=== PATIENT | male | born 1965 | race Native Hawaiian/Other Pacific Islander ===

== ENCOUNTER 2024-12-21 11:38 | Inpatient (IN) | payer MEDICAID, OTHER ==
[2024-12-21] VITALS (14 sets, daily range): BP systolic 94–177; BP diastolic 54–80; PULSE 92–128; RESP 22–39; TEMP 101.5–103.1; O2SAT 79–100
[~2024-12-21] VITALS: Ht 175.3 cm; Wt 80.8 kg
[2024-12-21] MEDS: cefTRIAXone 1GM/50ML D5W 50 ML IV ONE ×2 (11:20→12:24)
[2024-12-21] MEDS: VANCOMYCIN 1GM/250ML KIT 250 ML IV ONE ×2 (11:21→12:24)
--- NOTE | 2024-12-21 11:48 | ED.PDOC ---
Altered Mental Status HPI Comments 59 year old male brought in by EMS presents to the ED with a chief complaint of ALOC onset today (12/21/24). 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 Upon EMS arrival, patient's BS was 94, O2 sat was 70% RA was placed on 15L improved to 91%. Patient does not speak Korean, is a poor historian. PMHx DM, HTN. No other symptoms or modifying factors present at this time. Chief Complaint: ALOC Time Seen by MD: 11:38 Reviewed Notes: Nurses Notes (NKDA), Medications, Allergies Allergies: Coded Allergies: NO KNOWN ALLERGIES (Unverified , 12/21/24) Information Source: Emergency Med Personnel Mode of Arrival: EMS Severity: Moderate Timing: Hours Duration: Since onset Prehospital treatment: Oxygen Quality: Decreased Alertness, Change in Behavior Recent: None History of: Diabetes Past Medical History PAST MEDICAL HISTORY: DM, HTN Surgical History: Unknown Family History Family History: Unknown Social History Smoker: Unknown Alcohol: Unknown Drugs: Unknown Lives In: Assisted Care Constitutional: denies: chills, diaphoresis, fatigue, fever, malaise, sweats, weakness, others EENTM: denies: blurred vision, double vision, ear bleeding, ear discharge, ear drainage, ear pain, ear ringing, eye pain, eye redness, hearing loss, mouth pain, mouth swelling, nasal discharge, nose bleeding, nose congestion, nose pain, photophobia, tearing, throat pain, throat swelling, voice changes, others Respiratory: reports: shortness of breath; denies: cough, hemoptysis, orthopnea, SOB at rest, SOB with excertion, stridor, wheezing, others Cardiovascular: denies: chest pain, dizzy spells, diaphoresis, Dyspnea on exertion, edema, irregular heart beat, left arm pain, lightheadedness, palpitations, PND, syncope, others Gastrointestinal: denies: abdomen distended, abdominal pain, blood streaked bowels, constipated, diarrhea, dysphagia, difficulty swallowing, hematemesis, melena, nausea, poor appetite, poor fluid intake, rectal bleeding, rectal pain, vomiting, others Genitourinary: denies: burning, dysuria, flank pain, frequency, hematuria, incontinence, penile discharge, penile sore, pain, testicle pain, testicle swelling, urgency, others Neurological: reports: others (Altered mental status); denies: dizziness, fainting, headache, left sided numbness, left sided weakness, numbness, paresthesia, pre-existing deficit, right sided numbness, right sided weakness, seizure, speech problems, tingling, tremors, weakness Musculoskeletal: denies: back pain, gout, joint pain, joint swelling, muscle pain, muscle stiffness, neck pain, others Integumetry: denies: bruises, change in color, change in hair/nails, dryness, laceration, lesions, lumps, rash, wounds, others Allergic/Immunocompromised: denies: Difficulty Healing, Frequent Infections, Hives, Itching, others Hematologic/Lymphatic: denies: anemia, blood clots, easy bleeding, easy bruising, swollen glands, others Endocrine: denies: excessive hunger, excessive sweating, excessive thirst, excessive urination, flushing, intolerance to cold, intolerance to heat, unexplained weight gain, unexplained weight loss, others Psychiatric: denies: anxiety, bipolar disorder, depression, hopeless, panic disorder, schizophrenia, sleepless, suicidal, others Physical Exam General Appearance: Moderate Distress, Severe Distress HEENT: Pale [place] (L), Pale [place] (R), Pharynx Normal, TMs Normal Neck: Full Range of Motion, Non-Tender, Normal, Normal Inspection Respiratory: Accessory Muscle Use, Chest Non-Tender, Decreased Breath Sounds, Respiratory Distress Cardiovascular: No Edema, No JVD, No Murmur, No Gallop, Tachycardia Breast Exam: Deferred Gastrointestinal: No Organomegaly, Non Tender, No Pulsatile Mass, Normal Bowel Sounds, Soft Genitalia: Deferred Pelvic: Deferred Rectal: Deferred Extremities: No calf tenderness, Normal capillary refill, Normal inspection, Normal range of motion, Non-tender, No pedal edema Musculoskeletal : Apperance: Normal 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 Was a procedure done?: Yes Sedation Sedation?: No Intubation Indication: Respiratory Insufficiency Prep: Preoxygenation Pretreated with: Sedation (Etomidate 20 mg IV push) Medicated with: Succinylcholine (100 mg IV push) Intubation Approach: Orotracheal (8.0) Intubation size: cm (8.0) Informed consent obtained: No Risks/benefits/alt described: No Differential Diagnosis (ALOC) Differential Diagnosis: Dehydration, Encephalopathy, Sepsis, Other (Pneumonia, respiratory failure) X-Ray, Labs, Meds, VS Vital Signs Date Time Temp Pulse Resp B/P (MAP) Pulse Ox O2 Delivery O2 Flow Rate FiO2 12/21/24 17:15 102.4 127 38 135/70 102.4 12/21/24 17:00 102.6 117 28 142/61 (88) 91 102.6 12/21/24 16:55 102.7 117 22 151/64 102.7 12/21/24 16:55 102.7 117 22 151/64 102.7 12/21/24 16:48 102.7 118 28 140/66 102.7 12/21/24 16:42 102.7 123 32 147/70 102.7 12/21/24 16:05 130 12/21/24 16:00 102.9 121 29 153/73 (99) 93 102.9 12/21/24 15:41 118 132/63 97 Nasal BiPAP Mask 100 12/21/24 15:20 103.1 120 32 132/63 103.1 12/21/24 15:11 Bi-Pap+ 100 100 12/21/24 15:10 103.1 128 33 177/80 95 100 103.1 12/21/24 15:00 103.1 128 39 177/80 103.1 12/21/24 15:00 103.1 121 33 177/80 (112) 96 103.1 12/21/24 14:50 118 12/21/24 14:20 137 157/68 Nasal BiPAP Mask 100 12/21/24 14:03 103.1 12/21/24 14:00 102.9 123 34 157/68 (97) 94 102.9 12/21/24 13:03 102.1 12/21/24 12:53 102.8 112 35 133/69 (90) 94 102.8 12/21/24 12:00 119 12/21/24 11:57 118 12/21/24 11:49 119 12/21/24 11:41 101.4 123 24 145/77 (99) 91 101.4 Lab Test 12/21/24 15:36 12/21/24 15:33 12/21/24 13:58 12/21/24 13:51 Range/Units Troponin I High Sensitivity 907 *H </=54 ng/L Blood Gas Specimen Type Arterial Arterial Blood Gas Sample Site Left radial Left radial Blood Gas Patient Temperature 37.0 37.0 Arterial Blood Date Drawn [id number] Arterial Blood pH 7.294 L 7.328 L 7.350-7.450 Arterial Blood Partial Pressure CO2 32.0 L 27.5 L 35.0-48.0 mmHg Arterial Blood Partial Pressure O2 81.1 L 63.1 L 83.0-108.0 mmHg Arterial Blood HCO3 15.2 L 14.1 L 21.0-28.0 mmol/L Arterial Blood Oxygen Saturation 92.7 L 85.8 L 94.0-98.0 % Arterial Blood Base Excess -10.4 L -10.8 L -2.0-3.0 mmol/L Arterial Blood Oxyhemoglobin 91.2 L 84.6 L 94.0-98.0 % Arterial Blood Carboxyhemoglobin 0.8 0.4 L 0.5-1.5 % Arterial Blood Methemoglobin 0.8 1.0 0.0-1.5 % Dharmesh Test Yes Yes Blood Gas Total Hemoglobin 6.90 *L 6.50 *L 13.5-17.5 g/dL Blood Gas Set Respiration Rate 12.0 Blood Gas Modality Mask - bipap Mask - nrb Blood Gas Spontaneous Rate 30 FiO2 % 100.0 100.0 Blood Gas EPAP 8 Blood Gas IPAP 14 Blood Gas Critical Value Read Back yes yes Blood Gas Notified Whom dr.l.pascal lopez Blood Gas Notified Time [id number] Blood Gas Notified By traffic circuit engineer brit traffic circuit engineer brit Blood Gas Liter Flow 15.00 Lactic Acid Level 6.3 *H 0.4-2.0 mmol/L Test 12/21/24 13:05 3/16/25 12:12 12/21/24 12:07 12/21/24 11:58 Range/Units Troponin I High Sensitivity 630 *H 448 *H </=54 ng/L Influenza Type A Antigen Negative Negative Influenza Type B Antigen Negative Negative SARS-CoV-2 Antigen (Rapid) Negative NEGATIVE Urine Color Light-yellow Yellow Urine Clarity Clear Clear Urine pH 5.5 5.0-9.0 Urine Specific [place] 1.016 1.001-1.035 Urine Protein 2+ H Negative Urine Ketones Negative Negative Urine Blood 1+ H Negative /uL Urine Nitrite Negative Negative Urine Bilirubin Negative Negative Urine Urobilinogen Normal Negative mg/dL Urine Leukocyte Esterase Negative Negative /uL Urine RBC 4 0 - 3 /hpf Urine Microscopic WBC 2 0-3 /HPF Urine Squamous Epithelial Cells None seen <5 /hpf Urine Bacteria Few H None Seen /hpf Urine Creatinine 125.39 H 30.0-125.0 mg/dL Urine Sodium < 10 L 40-220 mmol/L Urine Glucose Normal Normal mg/dL White Blood Count 1.8 *L 4.4-10.8 10^3/uL Red Blood Count 2.01 L 4.5-5.90 10^6/uL Hemoglobin 6.3 *L 13.5-17.5 g/dL Hematocrit 19.1 L 41.0-53.0 % Mean Corpuscular Volume 94.7 80.0-100.0 fL Mean Corpuscular Hemoglobin 31.4 28.0-32.0 pg Mean Corpuscular Hemoglobin Concent 33.2 32.0-36.0 g/dL Red Cell Distribution Width 25.6 H 11.8-14.3 % Platelet Count 115 L 140-450 10^3/uL Mean Platelet Volume 8.1 6.9-10.8 fL Neutrophils (%) (Auto) 37.0-80.0 % Lymphocytes (%) (Auto) 10.0-50.0 % Monocytes (%) (Auto) 0.0-12.0 % Basophils (%) (Auto) 0.0-2.0 % Neutrophils # (Auto) 1.6-8.6 10 ^3/uL Lymphocytes # (Auto) 0.4-5.4 10 ^3/uL Monocytes # (Auto) 0-1.3 10 ^3/uL Differential Total Cells Counted 100.0 100 Neutrophils % (Manual) 58 37.0-80.0 Band Neutrophils % (Manual) 12 Lymphocytes % (Manual) 23 10.0-50.0 Monocytes % (Manual) 7 0-12 Eosinophils % (Manual) 0 0-7 Basophils % (Manual) 0 0.0-2.0 Metamyelocytes % (manual) 0 Myelocytes % (Manual) 0 Promyelocytes % (Manual) 0 Blast Cells % (Manual) 0 Reactive Lymphocytes 0 Platelet Estimate Decreased Prothrombin Time 17.4 H 9.3-11.8 sec Prothrombin Time INR 1.73 H 0.9-1.15 Activated Partial Thromboplast Time 34.6 H 24.5-34.5 SEC Sodium Level 134 L 136-145 mmol/L Potassium Level 3.8 3.5-5.1 mmol/L Chloride Level 98 98-107 mmol/L Carbon Dioxide Level 17 L 20-31 mmol/L Anion Gap 19 H 5-15 Blood Urea Nitrogen 45 H 9-23 mg/dL Creatinine 2.73 H 0.700-1.30 mg/dL Glomerular Filtration Rate Calc 26 >90 mL/min BUN/Creatinine Ratio 16.5 10.0-20.0 Serum Glucose 92 74-106 mg/dL Lactic Acid Level 4.9 *H 0.4-2.0 mmol/L Calcium Level 11.8 H 8.7-10.4 mg/dL Plasma/Serum Blood Alcohol < 3.0 <10 mg/dL Current Medications Medications (Trade) Dose Ordered Sig/Teddy Route Start Time Stop Time Status Last Admin Sodium Chloride 1,000 ml @ 150 mls/hr Q6H40M ONCE IV 12/21/24 11:45 12/21/24 18:24 DC 12/21/24 12:24 Vancomycin HCl 250 ml @ 250 mls/hr ONCE ONCE IV 12/21/24 11:45 12/21/24 12:44 DC 12/21/24 12:24 Ceftriaxone Sodium 50 ml @ 100 mls/hr ONCE ONCE IV 12/21/24 11:45 12/21/24 12:14 DC 12/21/24 12:24 Sodium Chloride 2,100 ml @ 2,100 mls/hr ONCE ONCE IV 12/21/24 12:45 12/21/24 13:44 DC 12/21/24 12:49 Acetaminophen (Tylenol Suppository) 650 mg ONCE ONCE HI 12/21/24 13:00 12/21/24 13:01 DC 12/21/24 13:03 Lorazepam (Ativan Inj) 0.5 mg ONCE ONCE IV 12/21/24 14:15 12/21/24 14:16 DC 12/21/24 14:21 Lorazepam (Ativan Inj) 0.5 mg ONCE ONCE IV 12/21/24 16:15 12/21/24 16:16 DC 12/21/24 16:06 Sodium Chloride 1,000 ml @ 1,000 mls/hr Q1H ONCE IV 12/21/24 17:00 12/21/24 17:59 DC 12/21/24 17:09 . PROCEDURE(s): HWOCT - HEAD WITHOUT CONTRAST IMPRESSION: 1. No CT evidence of acute intracranial abnormality. 2. Mild motion artifact and beam hardening artifact limits evaluation for subtle findings EDURE(s): CXRP - CHEST PORTABLE IMPRESSION: 1. Patchy ttlu-drqixwj-hniq-right consolidation concerning for multifocal pneumonia. At this time, the patient was tachycardic as well as somewhat altered. We are concerned about sepsis at this time The patient was given normal saline per 30 per kg bolus per sepsis protocol The patient was then started on vancomycin and Rocephin after blood cultures were drawn. The patient's 1st lactic acid level came back at 4.9. The patient's BUN is 45 and the creatinine is 2.73 The patient was leukopenic with a white blood cell count of 1.8 The patient's shows severe anemia with a hemoglobin of 6.3 and hematocrit of 19.1 We typed and screen the patient and we will be transfusing the patient with 2 units of packed red blood cells. The patient was respiratory status seemed to be deteriorating somewhat so we did an ABG for baseline study it showed pH of 7.33/pCO2 of 27.5/PO2 of 63.1 It was decided that the patient would be then placed on a BiPAP. The patient was then given Ativan 0.5 mg IV push We continue to keep the patient on BiPAP and will monitor the respiratory status. We have discussed with the respiratory department's that if the patient declines further we may potentially intubate. The patient was also given acetaminophen 650 mg per rectum for a temperature of 103.1 The urine test is negative for significant infection at this time The patient's CO2 level is 17 The anion gap is 19 The patient will be admitted to the ICU. At this time the patient was intubated The chest x-ray does show significant failure The patient was given Lasix 40 mg IV push We will continue to monitor the patient's status but the patient was now being admitted to the ICU Images Reviewed?: Images reviewed and evaluated by me Time of 1ST Reevaluation: 12:08 Reevaluation 1ST: Unchanged Time of 2ND Reevaluation: 20:39 Reevaluation 2ND: Improved Patient Education/Counseling: Pt Unresponsive (The patient was altered) Family Education/Counseling: No Family Present Departure 1 Departure Time of Disposition: 14:48 Impression: Primary Impression: Sepsis Qualified Codes: A41.9 - Sepsis, unspecified organism; R65.20 - Severe sepsis without septic shock; N17.1 - Acute kidney failure with acute cortical necrosis Additional Impressions: Metabolic encephalopathy Dehydration Increased anion gap metabolic acidosis Disposition: ADMITTED INPATIENT Admit to: ICU Condition: Critical Critical Care Note Critical Care Time?: Yes (1 hr-critical care time only) Stability Stability form required: Yes Unstable for transfer: ICU, CCU, PCU, ESTRELLA (Intensive VS monitoring), May require CPR (possible rapid decline), ED Physician Assesment (Clinical assesment) Heart Score Heart Score: Heart Score Response (Comments) Value History Moderate Suspicious 1 EKG Repolarization Disturb 1 Age 45-64 1 Risk Factors >3 or Hx ASHD 2 Troponin 1-2 x's Normal limit 1 Total 6 I personally scribed for GUZMAN SOUZA MD ([email or web address]) on 12/21/24 at 11:48. Electronically submitted by Padmini Lockhart ([email or web address]). I personally scribed for GUZMAN SOUZA MD ([email or web address]) on 12/21/24 at 11:58. Electronically submitted by Padmini Lockhart ([email or web address]). I personally scribed for GUZMAN SOUZA MD ([email or web address]) on 12/21/24 at 12:53. Electronically submitted by Padmini Lockhart ([email or web address]). I personally scribed for GUZMAN SOUZA MD ([email or web address]) on 12/21/24 at 13:52. Electronically submitted by Padmini Lockhart ([email or web address]). GUZMAN SOUZA MD Dec 21, 2024 11:48
[2024-12-21 12:15] LABS: Hematocrit 19.1 % (41.0-53.0); Mean Corpuscular Hemoglobin 31.4 pg (28.0-32.0); Mean Corpuscular Hgb Conc. 33.2 g/dL (32.0-36.0); Mean Corpuscular Volume 94.7 fL (80.0-100.0); Platelet Count (auto) 115 10^3/uL (140-450); Red Blood Cells 2.01 10^6/uL (4.5-5.90)
[2024-12-21 12:22] LABS: Carbon Dioxide 17 mmol/L (20-31)
[2024-12-21 12:24] LABS: Potassium 3.8 mmol/L (3.5-5.1)
[2024-12-21 12:24] LABS: Urine Bacteria FEW /hpf (None Seen); Urine Blood 1+ /uL (Negative); Urine Clarity Clear (Clear); Urine Color Light-Yellow (Yellow); Urine Protein, UAD 2+ (Negative); Urine Specific Gravity 1.016 (1.001-1.035); Urine Squamous Epithelial Cell None Seen /hpf (<5); Urine Urobilinogen Normal (Negative); Urine WBC 2 /HPF (0-3); Urine pH 5.5 (5.0-9.0)
[2024-12-21] MEDS: SODIUM CHLORIDE 0.9% 1,000 ML IV ONE ×2 (12:24→17:09)
[2024-12-21 12:25] LABS: Anion Gap 19 (5-15); Red Cell Distribution Width 25.6 % (11.8-14.3)
[2024-12-21 12:26] LABS: Calcium 11.8 mg/dL (8.7-10.4); Chloride 98 mmol/L (98-107); Sodium 134 mmol/L (136-145)
[2024-12-21 12:27] LABS: Glucose 92 mg/dL (74-106)
[2024-12-21 12:28] LABS: BUN/Creatinine Ratio 16.5 (10.0-20.0); Hemoglobin 6.3 g/dL (13.5-17.5); INR 1.73 (0.9-1.15); Partial Thromboplastin Time 34.6 SEC (24.5-34.5); Prothrombin Time 17.4 sec (9.3-11.8); White Blood Cell 1.8 10^3/uL (4.4-10.8)
[2024-12-21 12:29] LABS: Basophils % (manual) 0 (0.0-2.0); Blast Cells 0; Eosinophils % (manual) 0 (0-7); Metamyelocytes % 0; Myelocytes % 0; Promyelocytes % 0; Reactive Lymphocytes 0
[2024-12-21 12:30] LABS: Blood Urea Nitrogen 45 mg/dL (9-23)
[2024-12-21 12:31] LABS: Blood Alcohol < 3.0 mg/dL (<10); Lactic Acid w/Reflex 4.9 mmol/L (0.4-2.0)
[2024-12-21 12:34] LABS: COVID19 ANTIGEN SOFIA FIA NEGATIVE (NEGATIVE); Rapid Influenza A Negative (Negative); Rapid Influenza B Negative (Negative)
--- NOTE | 2024-12-21 12:41 | DVH ---
CLINICAL INFORMATION: Acute loss of consciousness. TECHNIQUE: Axial imaging was obtained through the brain without contrast. Coronal and sagittal reform atted images were obtained, reviewed, and stored. Images were reviewed in brain and bone windows. Al l CT scans at this medical facility are performed using dose modulation techniques as appropriate to a performed exam including the following: Automated exposure control was utilized; adjustment of the MA and/or KV according to patient size; and use of iterative reconstruction technique. CTDIvol = 58.6 4 mGy DLP = 940.0 mGy-cm COMPARISON: None FINDINGS: There is no acute intracranial hemorrhage. No mass effect or midline shift. The ventricles and sulci are within normal limits in size for age. Basal cisterns are patent. The calvarium is unre markable. Moderate mucosal thickening of the visualized portions of the paranasal sinuses. Partially visualized retention cyst versus polyp in the left maxillary sinus mastoid air cells are clear. IMPRESSION: 1. No CT evidence of acute intracranial abnormality. 2. Mild motion artifact and beam hardening artifact limits evaluation for subtle findings
[2024-12-21] MEDS: SODIUM CHLORIDE 0.9% 2,100 ML IV ONE (12:49)
[2024-12-21] MEDS: ACETAMINOPHEN IV 1000 MG/100ML (10MG/ML) IV ONE ×2 (12:55)
--- NOTE | 2024-12-21 13:01 | DVH ---
CHEST RADIOGRAPH Indication: aloc Technique: Single frontal view of the chest was obtained COMPARISON: None FINDINGS: Lines and Tubes: None Lungs: Patchy left worse than right consolidation. Pleura: No effusion. No pneumothorax. Cardiomediastinal contours: Unremarkable Bones: Unremarkable IMPRESSION: 1. Patchy cyrq-xpvyldx-ajxw-right consolidation concerning for multifocal pneumonia.
[2024-12-21] MEDS: ACETAMINOPHEN 650 MG RECT SUPP PR ONE (13:03)
[2024-12-21] MEDS: LORazepam 2MG/ML-1ML VIAL ONE (13:18)
[2024-12-21 13:22] LABS: Band Neutrophils % (manual) 12; Lymphocytes % (manual) 23 (10.0-50.0); Monocytes % (manual) 7 (0-12); Platelet Estimate Decreased
[2024-12-21 14:04] LABS: Base Excess -10.8 mmol/L (-2.0-3.0)
[2024-12-21] MEDS: LORazepam 2MG/ML-1ML VIAL IV ONE ×2 (14:21→16:06)
[2024-12-21 15:38] LABS: Base Excess -10.4 mmol/L (-2.0-3.0)
--- NOTE | 2024-12-21 17:13 | DVHHP2 ---
Admitting Diagnosis: Altered mental status History of Present Illness 59 year old male brought in by EMS presents to the ED with a chief complaint of ALOC onset today (12/21/24). 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 Upon EMS arrival, patient's BS was 94, O2 sat was 70% RA was placed on 15L improved to 91%. Patient does not speak [place]ian, is a poor historian. PMHx DM, HTN. No other symptoms or modifying factors present at this time. PAST MEDICAL HISTORY: DM, HTN Surgical History: Unknown Family History Family History: Unknown Social History Smoker: Unknown Alcohol: Unknown Drugs: Unknown Lives In: Assisted Care Allergies: Coded Allergies: NO KNOWN ALLERGIES (Unverified , 12/21/24) Current Medications Current Medications Medications (Trade) Dose Ordered Sig/Teddy Route PRN Reason Start Time Stop Time Status Last Admin Sodium Chloride (Saline Lock Ns) 10 ml Q8HR IV 12/21/24 22:00 UNV Docusate Sodium (Colace Capsule) 100 mg BIDPRN PRN PO FOR CONSTIPATION 12/21/24 17:30 UNV Acetaminophen (Tylenol Tablet) 650 mg Q6HP PRN PO PAIN SCALE 1-3 OR TEMP>100.4 12/21/24 17:30 UNV Acetaminophen/ Hydrocodone Bitart ([place] 5/325MG Tab) 1 tab Q4HP PRN PO MODERATE PAIN (4-6 PAIN SCALE) 12/21/24 17:30 UNV Hydromorphone HCl (Dilaudid Injection) 0.5 mg Q4HP PRN IV SEVERE PAIN (7-10 PAIN SCALE) 12/21/24 17:30 UNV Ondansetron HCl (Zofran) 4 mg Q4HP PRN IV NAUSEA / VOMITING 12/21/24 17:30 UNV Pantoprazole Sodium (Protonix) 40 mg BID IV 12/21/24 22:00 UNV Vital Signs Vital Signs Date Time Temp Pulse Resp B/P (MAP) Pulse Ox O2 Delivery O2 Flow Rate FiO2 12/21/24 17:15 102.4 127 38 135/70 102.4 12/21/24 17:00 91 12/21/24 15:41 Nasal BiPAP Mask 100 Physical Exam Generally 59 years old male, on BiPAP, resting comfortably. No apparent distress HEENT-atraumatic normocephalic Heart-sinus tachycardic Lungs-coarse breath sounds throughout the lung Abdomen soft nontender nondistended Musculoskeletal-pedal edema, no cyanosis Neuro-somnolent, nonresponsive to verbal or touch, Results Labs Test 12/21/24 15:36 12/21/24 15:33 12/21/24 13:58 12/21/24 13:51 Range/Units Troponin I High Sensitivity 907 *H </=54 ng/L Blood Gas Specimen Type Arterial Blood Gas Sample Site Left radial Blood Gas Patient Temperature 37.0 Arterial Blood Date Drawn [id number] Arterial Blood pH 7.294 L 7.350-7.450 Arterial Blood Partial Pressure CO2 32.0 L 35.0-48.0 mmHg Arterial Blood Partial Pressure O2 81.1 L 83.0-108.0 mmHg Arterial Blood HCO3 15.2 L 21.0-28.0 mmol/L Arterial Blood Oxygen Saturation 92.7 L 94.0-98.0 % Arterial Blood Base Excess -10.4 L -2.0-3.0 mmol/L Arterial Blood Oxyhemoglobin 91.2 L 94.0-98.0 % Arterial Blood Carboxyhemoglobin 0.8 0.5-1.5 % Arterial Blood Methemoglobin 0.8 0.0-1.5 % Dharmesh Test Yes Blood Gas Total Hemoglobin 6.90 *L 13.5-17.5 g/dL Blood Gas Set Respiration Rate 12.0 Blood Gas Modality Mask - bipap Blood Gas Spontaneous Rate 30 FiO2 % 100.0 Blood Gas EPAP 8 Blood Gas IPAP 14 Blood Gas Critical Value Read Back yes Blood Gas Notified Whom Blood Gas Notified Time [id number] Blood Gas Notified By restorative art embalmer brit Blood Gas Liter Flow 15.00 Lactic Acid Level 6.3 *H 0.4-2.0 mmol/L Test 12/21/24 12:12 12/21/24 12:07 12/21/24 11:58 Range/Units Influenza Type A Antigen Negative Negative Influenza Type B Antigen Negative Negative SARS-CoV-2 Antigen (Rapid) Negative NEGATIVE Urine Color Light-yellow Yellow Urine Clarity Clear Clear Urine pH 5.5 5.0-9.0 Urine Specific [place] 1.016 1.001-1.035 Urine Protein 2+ H Negative Urine Ketones Negative Negative Urine Blood 1+ H Negative /uL Urine Nitrite Negative Negative Urine Bilirubin Negative Negative Urine Urobilinogen Normal Negative mg/dL Urine Leukocyte Esterase Negative Negative /uL Urine RBC 4 0 - 3 /hpf Urine Microscopic WBC 2 0-3 /HPF Urine Squamous Epithelial Cells None seen <5 /hpf Urine Bacteria Few H None Seen /hpf Urine Glucose Normal Normal mg/dL White Blood Count 1.8 *L 4.4-10.8 10^3/uL Red Blood Count 2.01 L 4.5-5.90 10^6/uL Hemoglobin 6.3 *L 13.5-17.5 g/dL Hematocrit 19.1 L 41.0-53.0 % Mean Corpuscular Volume 94.7 80.0-100.0 fL Mean Corpuscular Hemoglobin 31.4 28.0-32.0 pg Mean Corpuscular Hemoglobin Concent 33.2 32.0-36.0 g/dL Red Cell Distribution Width 25.6 H 11.8-14.3 % Platelet Count 115 L 140-450 10^3/uL Mean Platelet Volume 8.1 6.9-10.8 fL Neutrophils (%) (Auto) 37.0-80.0 % Lymphocytes (%) (Auto) 10.0-50.0 % Monocytes (%) (Auto) 0.0-12.0 % Basophils (%) (Auto) 0.0-2.0 % Neutrophils # (Auto) 1.6-8.6 10 ^3/uL Lymphocytes # (Auto) 0.4-5.4 10 ^3/uL Monocytes # (Auto) 0-1.3 10 ^3/uL Differential Total Cells Counted 100.0 100 Neutrophils % (Manual) 58 37.0-80.0 Band Neutrophils % (Manual) 12 Lymphocytes % (Manual) 23 10.0-50.0 Monocytes % (Manual) 7 0-12 Eosinophils % (Manual) 0 0-7 Basophils % (Manual) 0 0.0-2.0 Metamyelocytes % (manual) 0 Myelocytes % (Manual) 0 Promyelocytes % (Manual) 0 Blast Cells % (Manual) 0 Reactive Lymphocytes 0 Platelet Estimate Decreased Prothrombin Time 17.4 H 9.3-11.8 sec Prothrombin Time INR 1.73 H 0.9-1.15 Activated Partial Thromboplast Time 34.6 H 24.5-34.5 SEC Sodium Level 134 L 136-145 mmol/L Potassium Level 3.8 3.5-5.1 mmol/L Chloride Level 98 98-107 mmol/L Carbon Dioxide Level 17 L 20-31 mmol/L Anion Gap 19 H 5-15 Blood Urea Nitrogen 45 H 9-23 mg/dL Creatinine 2.73 H 0.700-1.30 mg/dL Glomerular Filtration Rate Calc 26 >90 mL/min BUN/Creatinine Ratio 16.5 10.0-20.0 Serum Glucose 92 74-106 mg/dL Calcium Level 11.8 H 8.7-10.4 mg/dL Plasma/Serum Blood Alcohol < 3.0 <10 mg/dL Primary Diagnosis Acute hypoxic respiratory failure likely due to multifocal pneumonia Severe sepsis due to multifocal pneumonia Lactic acidosis RYAN Severe anemia required blood transfusion Hypercalcemia Plan Altered mental status in ED. CT head negative Chest x-ray shows multifocal pneumonia Check CT chest to assess for severity of the pneumonia Vanc and Zosyn for broad-spectrum antibiotics Blood culture, sputum culture. Adjust antibiotic according to ID and sensitivity IV fluids for resuscitation ABG shows improvement on BiPAP but patient has become altered, and saturation was 87 on non-rebreather mask Patient will be intubated due to GCS less than 8 and hypoxic on non-rebreather mask Ventilator per Dr. Lozano Daily SBT Fentanyl for pain Lactic acid is elevated. Trend q.6. If elevated, fluid resuscitate until lactic acid normalize Elevated troponin. Check echo of the heart Cardiology consult in ED. Trend troponin until plateau. Patient is not candidate for heparin drip in view of severe anemia requiring transfusion Hemoglobin less than seven ED. Patient is being transfused Transfusion hemoglobin goal greater than seven Check occult blood to rule out GI bleed Insert NGT during intubation Dietitian consult for tube diet Full code SCD for DVT prophylaxis PPI for GI prophylaxis NPO Plan discussed with: Patient Problems List: (1) Metabolic encephalopathy (2) Multifocal pneumonia (3) RYAN (acute kidney injury) (4) Sepsis Status: Acute (5) Increased anion gap metabolic acidosis Status: Acute (6) Dehydration Status: Acute (7) Severe sepsis Date of Service: Dec 21, 2024 Billing Provider: PHILLIP JC MD Common Visit Codes: [id number] CARE 30-74 MIN, [id number] CARE-EACH +30MIN PHILLIP JC MD Dec 21, 2024 17:13
[2024-12-21] MEDS: FUROSEMIDE 40 MG/4 ML VIAL ONE (17:15)
[2024-12-21] MEDS: SODIUM BICARB 8.4% 50Meq/50ml SYR INJ ONE (17:16)
[2024-12-21] MEDS ORDERED: HYDROmorphone HCL 2 MG/ML VL/or syr IV PRN (17:30)
[2024-12-21] MEDS ORDERED: HYDROcodone-ACET 5/325MG TAB PO PRN (17:30)
[2024-12-21] MEDS ORDERED: ONDANSETRON HCL 4 MG/2 ML VIAL IV PRN (17:30)
[2024-12-21] MEDS ORDERED: DOCUSATE SOD 100 MG CAP PO PRN (17:30)
[2024-12-21] MEDS: SUCCINYLCHOLINE CHLORIDE 20 MG/ML 10ML VIAL IV ONE (17:38)
[2024-12-21] MEDS: ETOMIDATE (2MG/ML) 20ML VIAL IV ONE (17:38)
[2024-12-21] MEDS ORDERED: hydrALAZINE HCL 20 MG/ML VL IV PRN (17:45)
[2024-12-21] MEDS: InsuLIN REG 1unit/0.01ml Soln (100units/ml) SC SCH (18:00)
[2024-12-21 18:13] LABS: Base Excess -14.2 mmol/L (-2.0-3.0)
[2024-12-21] MEDS: FUROSEMIDE 40 MG/4 ML VIAL IV SCH (18:13)
[2024-12-21] MEDS: ACCU-CHEK COMFORT CURVE STRIP VI SCH (18:15)
--- NOTE | 2024-12-21 18:15 | DVH ---
CHEST RADIOGRAPH Indication: POST INTUBATION Technique: Single frontal view of the chest was obtained Comparison: XY CHEST PORTABLE on DOS: 12/21/24 FINDINGS: Lines and Tubes: Enteric tube noted the diaphragm tip not visualized. Endotracheal tube proximally 2- 3 cm above the karina. Lungs: Bilateral perihilar infiltrates and lower lobe airspace disease and possible pleural effusions Pleura: No effusion. No pneumothorax. Cardiomediastinal contours: Unremarkable Bones: No acute osseous abnormality. IMPRESSION: 1. Endotracheal tube 2-3 cm above the karina 2. Enteric tube noted to the left diaphragm not visualized distally. HS:Y
[2024-12-21] MEDS: SODIUM BICARB 8.4% 50Meq/50ml SYR Vial IV ONE (18:16)
[2024-12-21] MEDS: PIPERACILLIN-TAZOB 3.375GM 100 ML IV SCH (18:24)
[2024-12-21] MEDS: MIDAZOLAM DRIP 50 mg/50mL 50 ML IV SCH (18:25)
[2024-12-21] MEDS ORDERED: VANCOMYCIN PER PHARMACY 0 MG IV SCH (18:30)
[2024-12-21 18:41] LABS: Creatinine, Urine 125.39 mg/dL (30.0-125.0); Sodium Urine < 10 mmol/L (40-220)
--- NOTE | 2024-12-21 18:48 | DVH ---
EXAM: XY CHEST XRAY 1 VIEW TECHNIQUE: Single frontal chest radiograph CLINICAL HISTORY: ET AND NG TUBE PLACMENT COMPARISON: XY CHEST PORTABLE on DOS: 12/21/24, XY CHEST PORTABLE on DOS: 12/21/24 Findings/Impression: Frontal chest radiograph demonstrates no acute osseous or superficial soft tissue abnormalities. Endotracheal tube terminates 5.1 cm from the karina. The enteric tube is visualized overlying the pl ane of the stomach. The trachea is midline. Mild cardiomegaly with pulmonary vascular congestion. Small left pleural effusion with compressive atelectasis. A superimposed infectious process is not ex cluded. No pneumothorax.
--- NOTE | 2024-12-21 19:23 | DVH ---
INDICATION: thelma, elevated lft TECHNIQUE: Multiple real-time sonographic images of the abdomen were obtained. COMPARISON: None FINDINGS: The liver is homogenous in echogenicity. The liver measures 15.1 cm. No intrahepatic bilia ry ductal dilatation is noted. Bilateral pleural effusions. The gallbladder wall measures 0.53 cm and is unremarkable. No gallstones or sludge is seen. The co mmon duct not visible. No pericholecystic fluid is noted. The right kidney measures 11 cm. No hydronephrosis. The left kidney measures 11.3 cm. No hydronephr osis. The spleen measures 11.6 cm, within normal limits. The echogenicity is within normal limits. The pancreas is not well visualized due to obscuration from bowel gas. IV seen unremarkable. Aorta not visible. IMPRESSION: 1. Right kidney measures 11 cm; left kidney measures 11.3 cm. The renal cortex bilaterally appears ec hogenic. 2. Liver measures 15.1 cm. 3. Appear to be bilateral pleural effusions. 4. Gallbladder wall measures 5.3 mm and is thickened. 5. Common bile duct is not visible. 6. Inferior vena cava is unremarkable 7. Abdominal aorta is not visible. HS:Y
[2024-12-21 19:57] LABS: Base Excess -12.6 mmol/L (-2.0-3.0)
--- NOTE | 2024-12-21 20:47 | DVH ---
Procedure: CT CHEST WITHOUT CONTRAST Reason for study/Clinical History: assess for multifocal pneumonia Comparison Study: None available at time of dictation. Exam Date: 12/21/2024 08:03 PM TECHNIQUE: Multidetector CT of the chest was performed from the lung apices to the upper abdomen with out the use of intravenous contract. Axial, coronal and sagittal multiplanar reformats were performed . Radiation Dose Information: CT Dose: CTDI volume is 24.08 mGy. Dose-length product is 967.0 mGy*cm The dose indicators for CT are the volume Computed Tomography (CT) Dose Index (CTDIvol) and the Dose Length Product (DLP), and are measured in units of mGy and mGy-cm, respectively. These indicators are not patient dose, but values generated from the CT scanner acquisition factors. The report includes radiation exposure data for exposures received during this examination. FINDINGS: Lower neck: Endotracheal tube and enteric tube in place Lungs: Patchy infiltrates are noted in the upper lobes bilaterally and lower lobes. Heart/Vascular Structures: Normal heart size. No pericardial effusion. Lymph Nodes: No adenopathy Pleura: No pleural effusion or significant pneumothorax. Musculoskeletal: No acute osseous abnormality. Soft tissues: Normal. Upper abdomen: Limited portions of the upper abdomen are unremarkable. IMPRESSION: 1. Patchy infiltrates in the upper lung rubio bilaterally, lingula on the left, and lower lung fiel ds, bilaterally. Radiation optimization: All CT scans at this facility use at least one of these dose optimization mathew hniques: automated exposure control mA and/or kV adjustment per patient size (includes targeted exam s where dose is matched to clinical indication) or iterative reconstruction. HS:Y
[2024-12-21 21:34] LABS: Lactic Acid w/Reflex 6.2 mmol/L (0.4-2.0)
[2024-12-21] MEDS: SODIUM CHLOR 0.9% PF (SALINE LOCK) 10ML VIAL/SYR IV SCH (22:17)
[2024-12-21] MEDS: PANTOPRAZOLE 40 MG/10 ML VIAL INJ IV SCH (22:33)
--- NOTE | 2024-12-21 23:55 | DVHNC2 ---
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) Indication: Hypotension, Volume resuscitation Room prepared for procedure: Yes Egg Gatherer performed hand hygien: Yes Maximal sterile barrier precau: Mask/Eye shield, Sterile gown, Cap, Sterlie gloves, Large sterlie drape Skin Preparation: Chlorhexidine gluconate Skin preparation completely dr: Yes Insertion site: Right, Internal jugular, Line secured Central line catheter type: [id number] dialysis Number of lumens: 3 Central line exchanged over a: No Antiseptic ointment applied to: Yes Post Assessment: Chest X-Ray Informed consent obtained: Yes Risks/benefits/alt described: Yes Notes Procedure completed under the supervision of Dr. Hughes Pending Chest xray Date of Service: Dec 21, 2024 Billing Provider: UBALDO YU MD Common Visit Codes: PROCEDURE ONLY Procedure Codes: [id number] NON-TUNNEL CV CATH CLINTON HENSON RESIDENT Dec 21, 2024 23:55 UBALDO YU MD Dec 22, 2024 11:56
[2024-12-22] VITALS (102 sets, daily range): BP systolic 61–178; BP diastolic 29–71; PULSE 54–102; RESP 0–31; TEMP 97.5–101.1; O2SAT 87–100
[2024-12-22 00:34] LABS: Lactic Acid w/Reflex 4.9 mmol/L (0.4-2.0)
--- NOTE | 2024-12-22 00:55 | DVH ---
CHEST RADIOGRAPH Indication: CHECK CENTRAL LINE PLACEMENT Technique: Single frontal view of the chest was obtained COMPARISON: XY CHEST XRAY 1 VIEW on DOS: 12/21/24, XY CHEST PORTABLE on DOS: 12/21/24, XY CHEST PORTABL E on DOS: 12/21/24 FINDINGS: Costophrenic angles have been cut off on this radiograph. Lines and Tubes: Interval insertion of right IJ central venous catheter with its tip projecting over cavoatrial junction. ETT in satisfactory position with its tip approximately 5 cm above the karina. Lungs: There are opacities in bilateral upper and lower lobes greater on the left side consistent wit h bilateral pneumonia. Pleura: No significant pleural effusion. No pneumothorax. Cardiomediastinal contours: Unremarkable IMPRESSION: Opacities in bilateral upper and lower lobes greater on the left side consistent with bilateral pneum onia.
[2024-12-22] MEDS: NOREPINEPHRINE 8 MG/250ML KIT 250 ML IV SCH (01:00)
[2024-12-22] MEDS: fentaNYL Drip 2500mCg/250mlNS 250 ML IV SCH (02:20)
[2024-12-22 03:53] LABS: Basophils # (auto) 0 10 ^3/uL (0-0.2); Eosinophils # (auto) 0 10 ^3/uL (0-0.8); Eosinophils % (auto) 0.2 % (0.0-7.0); Hemoglobin 7.4 g/dL (13.5-17.5); Platelet Count (auto) 83 10^3/uL (140-450)
[2024-12-22 03:56] LABS: Basophils % (auto) 0.1 % (0.0-2.0); Hematocrit 22.6 % (41.0-53.0); Lymphocytes # (auto) 0.2 10 ^3/uL (0.4-5.4); Lymphocytes % (auto) 24.2 % (10.0-50.0); Mean Corpuscular Hemoglobin 31.3 pg (28.0-32.0); Mean Corpuscular Hgb Conc. 32.6 g/dL (32.0-36.0); Mean Corpuscular Volume 96.2 fL (80.0-100.0); Monocytes # (auto) 0 10 ^3/uL (0-1.3); Monocytes % (auto) 4.6 % (0.0-12.0); Neutrophils # (auto) 0.7 10 ^3/uL (1.6-8.6); Neutrophils % (auto) 70.9 % (37.0-80.0); Nucleated Red Blood Cells % 0.8 %; Red Blood Cells 2.35 10^6/uL (4.5-5.90); Red Cell Distribution Width 23.9 % (11.8-14.3)
[2024-12-22 04:10] LABS: Anion Gap 17 (5-15); Bilirubin, Total 0.8 mg/dL (0.2-1.0); Calcium 10.3 mg/dL (8.7-10.4); Chloride 102 mmol/L (98-107); Glucose 77 mg/dL (74-106); Magnesium 2.1 mg/dL (1.6-2.6); Sodium 138 mmol/L (136-145)
[2024-12-22 04:14] LABS: Alanine Aminotransferase 127 U/L (7-40); Alkaline Phosphatase 27 U/L (46-116); Aspartate Aminotransferase 132 U/L (13-40); Blood Urea Nitrogen 54 mg/dL (9-23); Carbon Dioxide 19 mmol/L (20-31); Total Protein 9.3 g/dL (5.7-8.2)
[2024-12-22 05:31] LABS: Large Platelets FEW; Platelet Estimate Decrea
--- NOTE | 2024-12-22 06:10 | DVH ---
EXAM: XR Chest, 1 View CLINICAL INDICATION: POST CENTRAL LINE PLACMENT TECHNIQUE: Frontal view of the chest. COMPARISON: XY CHEST XRAY 1 VIEW on DOS: 12/22/24, XY CHEST XRAY 1 VIEW on DOS: 12/21/24, XY CHEST PO RTABLE on DOS: 12/21/24, XY CHEST PORTABLE on DOS: 12/21/24 FINDINGS: LUNGS AND PLEURAL SPACES: Pulmonary congestion and edema. Pneumonia cannot be excluded. No pneumot horax. HEART: Unremarkable. No cardiomegaly. MEDIASTINUM: Unremarkable. Normal mediastinal contour. BONES/JOINTS: Unremarkable. No acute fracture. TUBES, LINES AND DEVICES: Status post ETT placement with distal tip 4.7 cm from the karina. OTHER FINDINGS: . IMPRESSION: 1. Pulmonary congestion and edema. Pneumonia cannot be excluded. Right IJ venous catheter with dista l tip in the SVC. 2. Status post ETT placement with distal tip 4.7 cm from the karina.
[2024-12-22] MEDS: PHENYLEPHRINE IV 250 ML IV SCH (06:19)
[2024-12-22] MEDS: ACETAMINOPHEN 325 MG TAB PO PRN (06:58)
[2024-12-22 07:43] LABS: Base Excess -9.7 mmol/L (-2.0-3.0)
[2024-12-22] MEDS: DEXTROSE (50%) 50ML SYRG IV PRN (07:59)
[2024-12-22] MEDS: PHENYLEPHRINE INJ 80 MG in SODIUM CHL 0.9% 242 ML IV SCH (08:30)
[2024-12-22] MEDS: NOREPINEPHRINE BITARTRATE 32 MG in SODIUM CHL 0.9% 218 ML IV SCH (08:30)
[2024-12-22 08:40] LABS: Triglycerides 81 mg/dL (< 150)
[2024-12-22 08:41] LABS: Cholesterol < 50.0 mg/dL (< 200); LDL Cholesterol 6 mg/dL (< 100)
[2024-12-22 08:42] LABS: HDL Cholesterol 9 mg/dL (40-59)
--- NOTE | 2024-12-22 08:52 | DVHINCON2 ---
Date Seen: Dec 22, 2024 Referring Physician MD Ellen Reason for Consultation SOB/Elevated troponin levels History of Present Illness This is a 59-year-old man who presented to the emergency room via EMS with a chief complaint of ALOC. At time of assessment, the patient was found endotrac heally intubated with 60% FiO2, chemically sedated, and on dual vasopressors for hemodynamic support. Information obtained from records which indicate the patient was found with ALOC by coworkers who called 911. Upon EMS arrival the patient was found short of breath with positive accessory muscle use and O2 saturations of 70% on room air for which he was placed on a NRB mask at 15 LPM. BGL at the scene was 94 ng/dL. Upon arrival he was found with a temperature of 101.4 F and underwent an initial 12 lead electrocardiogram revealing a sinus rhythm with nonspecific ST changes to inferolateral leads. A repeat 12 lead electrocardiogram was completed this morning revealing a normal sinus rhythm without evidence of ischemia. Troponin levels are trending up with latest in the 1900s ng/L. Significant medical history includes insulin-dependent diabetes mellitus, hypertension, and peripheral neuropathy. Past Medical History Past medical history reviewed. No other significant than mentioned above. Past Surgical History Unknown past surgical history. Family History Unknown family history. Social History Unknown social history. Allergies: Coded Allergies: NO KNOWN ALLERGIES (Unverified , 12/21/24) Home Meds Home medications reviewed. Current Medications Current Medications Medications (Trade) Dose Ordered Sig/Teddy Route PRN Reason Start Time Stop Time Status Last Admin Sodium Chloride (Saline Lock Ns) 10 ml Q8HR IV 12/21/24 22:00 12/22/24 06:07 Docusate Sodium (Colace Capsule) 100 mg BIDPRN PRN PO FOR CONSTIPATION 12/21/24 17:30 Acetaminophen (Tylenol Tablet) 650 mg Q6HP PRN PO PAIN SCALE 1-3 OR TEMP>100.4 12/21/24 17:30 12/22/24 06:58 Acetaminophen/ Hydrocodone Bitart ([place] 5/325MG Tab) 1 tab Q4HP PRN PO MODERATE PAIN (4-6 PAIN SCALE) 12/21/24 17:30 Hydromorphone HCl (Dilaudid Injection) 0.5 mg Q4HP PRN IV SEVERE PAIN (7-10 PAIN SCALE) 12/21/24 17:30 Ondansetron HCl (Zofran) 4 mg Q4HP PRN IV NAUSEA / VOMITING 12/21/24 17:30 Pantoprazole Sodium (Protonix) 40 mg BID IV 12/21/24 22:00 12/21/24 22:33 Piperacillin Sod/ Tazobactam Sod 100 ml @ 25 mls/hr Q12H IV 12/21/24 17:45 12/22/24 05:24 Diagnostic Test (Pha) (Accu-Chek Comfort Curve T) 1 strip Q6HR 12/21/24 18:00 12/22/24 06:07 Insulin Human Regular (InsuLIN R) Q6HR SC 12/21/24 18:00 Dextrose 50 ml UD PRN IV Blood Sugar LESS THAN 60 12/21/24 17:45 12/22/24 07:59 Hydralazine HCl (Apresoline Injection) 10 mg Q6H PRN IV SBP > 165 12/21/24 17:45 Midazolam HCl 50 ml @ 1 mls/hr Q24H IV 12/21/24 17:45 12/22/24 07:24 Furosemide (Lasix Injection) 40 mg DAILY IV 12/22/24 10:00 12/21/24 18:13 Vancomycin HCl 0 ml @ 0 mls/hr UD IV 12/21/24 18:30 Norepinephrine Bitartrate 250 ml @ 3.75 mls/hr Q24H IV 12/22/24 01:15 12/22/24 01:00 Fentanyl Citrate 250 ml @ 2.5 mls/hr Q24H IV 12/22/24 02:15 12/22/24 02:20 Phenylephrine HCl 250 ml @ 30 mls/hr Q8H20M IV 12/22/24 06:15 12/22/24 06:19 Phenylephrine HCl 80 mg/Sodium Chloride 250 ml @ 7.5 mls/hr Q24H IV 12/22/24 08:30 UNV Norepinephrine Bitartrate 32 mg/ Sodium Chloride 250 ml @ 0.938 mls/ hr Q24H IV 12/22/24 08:30 UNV Review of Systems Constitutional: No symptom reported Ears, Nose, & Throat: No symptom reported Eyes: No symptom reported Neurological: ALOC Pulmonary/Respiratory: SOB Cardiovascular: No symptom reported Gastrointestinal: No symptom reported Genitourinary: No symptom reported Musculoskeletal: No symptom reported Skin: No symptom reported Psychiatric: No symptom reported Endocrine: No symptom reported Hemotologic/Lymphatic: No symptom reported Vital Signs Vital Signs Date Time Temp Pulse Resp B/P (MAP) Pulse Ox O2 Delivery O2 Flow Rate FiO2 12/22/24 07:59 100.4 12/22/24 07:24 99/54 12/22/24 06:45 93 18 100 12/22/24 06:25 70 12/22/24 06:00 Mechanical Ventilator+ Physical Exam General Appearance: Endotracheally intubated. Chemically sedated. On dual vasopressor. Withdrawn Head Exam: Normal inspection Neck Exam: Normal inspection. Normal alignment Pulmonary/Respiratory: Diminished bilateral breath sounds. Endotracheally intubated 60% FiO2 Cardiovascular/Chest: Regular rate and rhythm. S1, S2. No murmurs. No JVD. On dual vasopressor Peripheral Pulses: 2+ Radial (R). 2+ Radial (L). 2+ Pedal (R). 2+ Pedal (L) Abdominal Exam: Normal bowel sounds. Soft. Ankle Exam: Negative ankle edema Lower extremities: Negative lower extremity edema Neuro/Mental Status: Chemically sedated. Withdrawn Thoughts/Psych: Unable to assess at this time Appearance: In no acute distress Skin Exam: Normal inspection. Normal color. Hot. Dry Labs/Diagnostic Data Labs Test 12/22/24 08:15 12/22/24 07:44 12/22/24 07:36 12/22/24 03:31 Range/Units POC Glucose 60 L 70-106 mg/dl Blood Gas Specimen Type Arterial Blood Gas Sample Site Right radial Blood Gas Patient Temperature 37.0 Arterial Blood Date Drawn [id number] Arterial Blood pH 7.232 *L 7.350-7.450 Arterial Blood Partial Pressure CO2 41.6 35.0-48.0 mmHg Arterial Blood Partial Pressure O2 125.8 H 83.0-108.0 mmHg Arterial Blood HCO3 17.1 L 21.0-28.0 mmol/L Arterial Blood Oxygen Saturation 98.0 94.0-98.0 % Arterial Blood Base Excess -9.7 L -2.0-3.0 mmol/L Arterial Blood Oxyhemoglobin 96.7 94.0-98.0 % Arterial Blood Carboxyhemoglobin 0.5 0.5-1.5 % Arterial Blood Methemoglobin 0.8 0.0-1.5 % Dharmesh Test Modified Blood Gas Total Hemoglobin 8.60 L 13.5-17.5 g/dL Blood Gas Set Respiration Rate 20.0 Blood Gas Modality Vent - ac FiO2 % 70.0 Blood Gas Tidal Volume 550.0 Blood Gas PEEP or CPAP 12.0 Blood Gas Critical Value Read Back Yes Blood Gas Notified Whom adriana Menendez md Blood Gas Notified Time [id number] Blood Gas Notified By Account Information Clerk roberto johnson White Blood Count 1.0 #*L 4.4-10.8 10^3/uL Red Blood Count 2.35 L 4.5-5.90 10^6/uL Hemoglobin 7.4 #L 13.5-17.5 g/dL Hematocrit 22.6 #L 41.0-53.0 % Mean Corpuscular Volume 96.2 80.0-100.0 fL Mean Corpuscular Hemoglobin 31.3 28.0-32.0 pg Mean Corpuscular Hemoglobin Concent 32.6 32.0-36.0 g/dL Red Cell Distribution Width 23.9 H 11.8-14.3 % Platelet Count 83 L 140-450 10^3/uL Mean Platelet Volume 8.5 6.9-10.8 fL Neutrophils (%) (Auto) 70.9 37.0-80.0 % Lymphocytes (%) (Auto) 24.2 10.0-50.0 % Monocytes (%) (Auto) 4.6 0.0-12.0 % Eosinophils (%) (Auto) 0.2 0.0-7.0 % Basophils (%) (Auto) 0.1 0.0-2.0 % Neutrophils # (Auto) 0.7 L 1.6-8.6 10 ^3/uL Lymphocytes # (Auto) 0.2 L 0.4-5.4 10 ^3/uL Monocytes # (Auto) 0 0-1.3 10 ^3/uL Eosinophils # (Auto) 0 0-0.8 10 ^3/uL Basophils # (Auto) 0 0-0.2 10 ^3/uL Nucleated Red Blood Cells 0.8 % Platelet Estimate Decrea Large Platelets Few Sodium Level 138 136-145 mmol/L Potassium Level 5.0 3.5-5.1 mmol/L Chloride Level 102 98-107 mmol/L Carbon Dioxide Level 19 L 20-31 mmol/L Anion Gap 17 H 5-15 Blood Urea Nitrogen 54 H 9-23 mg/dL Creatinine 3.87 H 0.700-1.30 mg/dL Glomerular Filtration Rate Calc 17 >90 mL/min BUN/Creatinine Ratio 14.0 10.0-20.0 Serum Glucose 77 74-106 mg/dL Calcium Level 10.3 8.7-10.4 mg/dL Magnesium Level 2.1 1.6-2.6 mg/dL Total Bilirubin 0.8 0.2-1.0 mg/dL Aspartate Amino Transferase (AST) 132 H 13-40 U/L Alanine Aminotransferase (ALT) 127 H 7-40 U/L Alkaline Phosphatase 27 L 46-116 U/L Total Protein 9.3 H 5.7-8.2 g/dL Albumin 2.0 L 3.2-4.8 g/dL Random Vancomycin Level 11.7 H 5-10 ug/mL Test 12/22/24 02:46 12/21/24 20:55 12/21/24 15:33 12/21/24 13:58 Range/Units Lactic Acid Level 3.8 *H 0.4-2.0 mmol/L D-Dimer, Quantitative 1.55 H 0.0-0.49 mg/L FEU Blood Gas Spontaneous Rate 30 Blood Gas EPAP 8 Blood Gas IPAP 14 Blood Gas Liter Flow 15.00 Test 12/21/24 12:12 12/21/24 12:07 12/21/24 11:58 Range/Units Influenza Type A Antigen Negative Negative Influenza Type B Antigen Negative Negative SARS-CoV-2 Antigen (Rapid) Negative NEGATIVE Urine Color Light-yellow Yellow Urine Clarity Clear Clear Urine pH 5.5 5.0-9.0 Urine Specific [place] 1.016 1.001-1.035 Urine Protein 2+ H Negative Urine Ketones Negative Negative Urine Blood 1+ H Negative /uL Urine Nitrite Negative Negative Urine Bilirubin Negative Negative Urine Urobilinogen Normal Negative mg/dL Urine Leukocyte Esterase Negative Negative /uL Urine RBC 4 0 - 3 /hpf Urine Microscopic WBC 2 0-3 /HPF Urine Squamous Epithelial Cells None seen <5 /hpf Urine Bacteria Few H None Seen /hpf Urine Creatinine 125.39 H 30.0-125.0 mg/dL Urine Sodium < 10 L 40-220 mmol/L Urine Glucose Normal Normal mg/dL Differential Total Cells Counted 100.0 100 Neutrophils % (Manual) 58 37.0-80.0 Band Neutrophils % (Manual) 12 Lymphocytes % (Manual) 23 10.0-50.0 Monocytes % (Manual) 7 0-12 Eosinophils % (Manual) 0 0-7 Basophils % (Manual) 0 0.0-2.0 Metamyelocytes % (manual) 0 Myelocytes % (Manual) 0 Promyelocytes % (Manual) 0 Blast Cells % (Manual) 0 Reactive Lymphocytes 0 Prothrombin Time 17.4 H 9.3-11.8 sec Prothrombin Time INR 1.73 H 0.9-1.15 Activated Partial Thromboplast Time 34.6 H 24.5-34.5 SEC Plasma/Serum Blood Alcohol < 3.0 <10 mg/dL Assessment Septic shock with multifocal pneumonia Acute hypoxic respiratory failure NSTEMI, likely type 2 secondary to above Rule out structural heart disease Hx of hypertension Insulin-dependent diabetes mellitus Acute anemia s/p PRBCs x 2 units, ?GI bleed Thrombocytopenia Plan/Recommendation (Dr. Perea) The patient will undergo a transthoracic echocardiogram to rule out structural heart disease. In the meantime, continue vasopressors for hemodynamic support as well as cooling measures given pyrexia. Continue ABX therapy per primary care team. Obtain FOBT and monitor H&H closely. Continue respiratory consultat ion and recommendations. Serial troponin level to follow, continue for a peak and fall. Likely NSTEMI Type II. Thank you for allowing us to participate in this patient's care. Please call if you have any questions or concerns. Critical Care Time: 30 min. This medical document was created using an electronic medical record system with voice recognition software and computerized dictation system. Although this document has been carefully reviewed, there might still be some phonetic and typographical errors. Occasional wrong-word or ``sound-alike substitutions may have occurred due to the inherent limitations of voice recognition software. These areas are purely typographical due to imperfections of the software programs and do not reflect any compromise in the patient's medical care. Please read the chart carefully and recognize, using context, where these substitutions have occurred. Plan discussed with: Other NYHA Physical activity limitations: NA Date of Service: Dec 22, 2024 Billing Provider: DEBBIE SOL Cardiology Common Codes: 20966-[id number] CARE 30-74 MIN DEBBIE SOL Dec 22, 2024 08:52
[2024-12-22] MEDS: SODIUM BICARB 8.4% 50Meq/50ml SYR Vial IV ONE (09:32)
[2024-12-22] MEDS: SODIUM BICARB 50mEq/50ml Vial 150 ML in D5W 5% 1,000 ML IV ONE (11:47)
--- NOTE | 2024-12-22 11:59 | DVHPN2 ---
Subjective Intubated and sedated Reviewed: Care Plan, H&P, Labs, Medications Changes from previous H/P or p: No Changes General: Per HPI Objective Vitals Vital Signs Date Time Temp Pulse Resp B/P (MAP) Pulse Ox O2 Delivery O2 Flow Rate FiO2 12/22/24 10:45 100.2 92 19 90/48 (62) 212.4 12/22/24 10:15 100 12/22/24 10:00 Mechanical Ventilator+ 70 70 Intake/Output Intake and Output 12/22/24 07:00 Intake Total 4630.27487 ml Output Total 3060 ml Balance 1570.64930 ml Intake Oral 30 ml IV Total 3400.85044 ml Tube Feeding 0 ml Blood Product 1200 ml Other 0 ml Output Urine Total 3060 ml Stool Total 0 ml Urine/Stool Mix 0 ml Gastric Drainage Total 0 ml Emesis 0 ml Chest Tube Drainage Total 0 ml Drainage Total 0 ml Blood Draw 0 ml Other 0 ml General Appearance: severe distress HEENT: Atraumatic, PERRLA Lungs: Other (Mechanical ventilation. Rhonchi) Cardiovascular: Normal S1, Normal S2 Abdomen: Normal bowel sounds, Soft, No tenderness Back: Flank Tenderness, Midline Tenderness Musculoskeletal: Other (No motor movement) Neuro: Other (Unable to assess) Psych/Mental Status: Other (Unable to assess) Medications Current Medications Medications Dose Ordered Sig/Teddy Route Start Time Stop Time Status Last Admin Dose Admin Sodium Chloride 10 ml Q8HR IV 12/21/24 22:00 12/22/24 06:07 10 ML Docusate Sodium 100 mg BIDPRN PRN PO 12/21/24 17:30 Acetaminophen 650 mg Q6HP PRN PO 12/21/24 17:30 12/22/24 06:58 650 MG Acetaminophen/ Hydrocodone Bitart 1 tab Q4HP PRN PO 12/21/24 17:30 Hydromorphone HCl 0.5 mg Q4HP PRN IV 12/21/24 17:30 Ondansetron HCl 4 mg Q4HP PRN IV 12/21/24 17:30 Pantoprazole Sodium 40 mg BID IV 12/21/24 22:00 12/22/24 09:30 40 MG Diagnostic Test (Pha) 1 strip Q6HR 12/21/24 18:00 12/22/24 06:07 1 STRIP Insulin Human Regular Q6HR SC 12/21/24 18:00 Dextrose 50 ml UD PRN IV 12/21/24 17:45 12/22/24 07:59 50 ML Hydralazine HCl 10 mg Q6H PRN IV 12/21/24 17:45 Midazolam HCl 50 ml @ 1 mls/hr Q24H IV 12/21/24 17:45 12/22/24 07:24 10 MLS/HR Furosemide 40 mg DAILY IV 12/22/24 10:00 12/22/24 09:30 40 MG Vancomycin HCl 0 ml @ 0 mls/hr UD IV 12/21/24 18:30 Fentanyl Citrate 250 ml @ 2.5 mls/hr Q24H IV 12/22/24 02:15 12/22/24 02:20 2.5 MLS/HR Phenylephrine HCl 80 mg/Sodium Chloride 250 ml @ 7.5 mls/hr Q24H IV 12/22/24 08:30 12/22/24 08:30 16.875 MLS/HR Norepinephrine Bitartrate 32 mg/ Sodium Chloride 250 ml @ 0.938 mls/ hr Q24H IV 12/22/24 08:30 12/22/24 08:30 14.063 MLS/HR Meropenem 50 ml @ 17 mls/hr DAILY IV 12/22/24 11:00 UNV Micafungin Sodium 100 mg/Sodium Chloride 100 ml @ 100 mls/hr DAILY IV 12/23/24 10:00 Albuterol 2.5 mg Q6HR NEB 12/22/24 12:00 Ipratropium [place] 0.5 mg Q6HR NEB 12/22/24 12:00 Acetylcysteine 100 mg Q6HR NEB 12/22/24 12:00 Hydrocortisone Sodium Succinate 100 mg Q12HR IV 12/22/24 22:00 Vasopressin 20 units/Sodium Chloride 100 ml @ 9 mls/hr Q11H7M IV 12/22/24 12:00 Laboratory Results Laboratory Tests 12/22/24 03:31 Chemistry Test 12/21/24 11:58 12/22/24 03:31 Calcium Level 11.8 mg/dL (8.7-10.4) H 10.3 mg/dL (8.7-10.4) Albumin 2.0 g/dL (3.2-4.8) L Magnesium Level 2.1 mg/dL (1.6-2.6) Total Protein 9.3 g/dL (5.7-8.2) H Coagulation Test 12/21/24 11:58 12/21/24 20:55 Prothrombin Time 17.4 sec (9.3-11.8) H Prothrombin Time INR 1.73 (0.9-1.15) H Activated Partial Thromboplast Time 34.6 SEC (24.5-34.5) H D-Dimer, Quantitative 1.55 mg/L FEU (0.0-0.49) H Lipid panel Test 12/22/24 03:31 Cholesterol Level < 50.0 mg/dL (< 200) HDL Cholesterol 9 mg/dL (40-59) L Triglycerides Level 81 mg/dL (< 150) Cardiac Markers Test 12/22/24 03:31 B-Type Natriuretic Peptide 4001.78 pg/mL (0-100) LFT Test 12/22/24 03:31 Alanine Aminotransferase (ALT) 127 U/L (7-40) H Alkaline Phosphatase 27 U/L (46-116) L Aspartate Amino Transferase (AST) 132 U/L (13-40) H Total Bilirubin 0.8 mg/dL (0.2-1.0) HgA1c, TSH Test 12/22/24 03:31 Hemoglobin A1c 5.4 % A1C (<5.7) Thyroid Stimulating Hormone (TSH) 0.92 uIU/mL (0.55-4.78) Urinalysis Test 12/21/24 12:07 Urine Color Light-yellow (Yellow) Urine Clarity Clear (Clear) Urine pH 5.5 (5.0-9.0) Urine Specific [place] 1.016 (1.001-1.035) Urine Protein 2+ (Negative) H Urine Ketones Negative (Negative) Urine Blood 1+ /uL (Negative) H Urine Nitrite Negative (Negative) Urine Bilirubin Negative (Negative) Urine Urobilinogen Normal mg/dL (Negative) Urine Leukocyte Esterase Negative /uL (Negative) Urine RBC 4 /hpf (0 - 3) Urine Microscopic WBC 2 /HPF (0-3) Urine Squamous Epithelial Cells None seen /hpf (<5) Urine Bacteria Few /hpf (None Seen) H Urine Creatinine 125.39 mg/dL (30.0-125.0) H Urine Sodium < 10 mmol/L (40-220) L Urine Glucose Normal mg/dL (Normal) Blood Gas Results Test 12/21/24 13:58 12/21/24 15:33 12/21/24 18:04 12/21/24 19:50 Arterial Blood pH 7.328 (7.350-7.450) 7.294 (7.350-7.450) 7.018 (7.350-7.450) 7.149 (7.350-7.450) FiO2 % 100.0 100.0 100.0 100.0 Test 12/22/24 07:36 Arterial Blood pH 7.232 (7.350-7.450) FiO2 % 70.0 Labs and/or images reviewed: Labs reviewed by me, Image(s) reviewed by me Assessment/Plan Assessment/Plan Impression: -acute hypoxic respiratory failure -multifocal pneumonia , community-acquired, probable Gram-positive/Gram-negative etiology -severe sepsis with shock -acute kidney injury, hemodynamically mediated. Probable underlying CKD -nicotine dependence -diabetes mellitus -primary hypertension -pancytopenia -NSTEMI type 2 -transaminitis -diabetes mellitus, periods of hypoglycemia Plan: -long discussion made with the patient's cousin. Only medical history noted is nicotine dependence, hypertension, diabetes mellitus. He states that he was not see the patient daily, as he lives in [place]. Reports patient is living in [place] for approximately a year and a half and traveled from [place]. No other history was available at this time. -continue vasopressor therapy with norepinephrine and phenylephrine. Add vasopressin -add hydrocortisone 100 mg IV b.i.d. -antibiotic therapy: Vancomycin, meropenem, add micafungin -peripheral smear, check LDH, HIV panel, cocci, QuantiFERON gold -PUD, DVT prophylaxis -consultations: Cardiology, Nephrology, Hematology -continue current ventilator settings -repeat labs, chest x-ray, ABG in a.m. -prognosis guarded. This was discussed with patient's cousin -plans for CVP monitoring, a line will be placed by myself. Critical care time spent with patient discussing and formulating plan of care: 90 minutes. This does not include time spent performing procedures. This medical document was created using an electronic medical record system with [employer] dictation system. Although this document has been carefully reviewed, there may still be some phonetic and typographical errors. These areas are purely typographical due to imperfections of the software programs, and do not reflect any compromise in the patient's medical care. Plan discussed with: Patient, Other (RN) My Orders Orders - TESSIE MASON NP Procedure Category Date Status Time Berry Stain Slide LAB 12/22/24 In Process 10:52 Hiv 1&2 Antibody LAB 12/22/24 In Process 10:52 Meropenem 500mg Ivpb PHA 12/22/24 Logged (Merrem 500mg/Ns) 11:00 Urine Bacterial IJ 12/22/24 Logged Culture 10:52 Central Line W/ Cont ORDERS 12/22/24 Transmitted CVP 10:52 *Dr. Magan Lindquist CONS 12/22/24 Transmitted -[place] 10:52 Micafungin Sodium PHA 12/23/24 In Process (Mycamine) 10:00 Sodium Bicarb PHA 12/22/24 In Process 50meq/50ml Vial 11:00 Albuterol Medneb PHA 12/22/24 In Process (Ventolin Medneb) 12:00 Ipratropium Medneb PHA 12/22/24 In Process (Atrovent Medneb) 12:00 Acetylcysteine PHA 12/22/24 In Process Inhalation 10% 12:00 Hydrocortisone PHA 12/22/24 In Process Succinate Inj 22:00 * Hematology/Oncology CONS 12/22/24 Transmitted Consult 11:21 Complement C3 & C4 LAB 12/22/24 Logged 11:24 Sodium Chl 0.9% PHA 12/22/24 In Process (So... W/Vasopressin 12:00 Date of Service: Dec 22, 2024 Billing Provider: TESSIE MASON NP Common Visit Codes: [id number] CARE 30-74 MIN, [id number] CARE-EACH +30MIN TESSIE MASON NP Dec 22, 2024 11:59
[2024-12-22] MEDS: ALBUTEROL SULF 2.5 MG/0.5ML(0.5%) NEB SOLN NEB SCH (12:17)
[2024-12-22] MEDS: IPRATROPIUM BROM 0.5 MG/2.5ML INH SOL NEB SCH (12:17)
[2024-12-22] MEDS: ACETYLCYSTEINE 10 %(100MG/ML) SOL 4ML NEB SCH (12:17)
--- NOTE | 2024-12-22 12:18 | DVHCONRES ---
Date Seen: Dec 22, 2024 Resident Creating Document: ELIZABETH STRAUSS RESIDENT Referring Physician Criss Degroot Reason for Consultation RYAN, no urine output since AM 12/22 History of Present Illness Mr. De Los Santos, a 59-year-old man orogonally from [place] with extremely limited medical history history of insulin-dependent diabetes mellitus and essential hypertension was brought to the emergency room with altered level of consciousness (ALOC), as found by coworkers and presented with shortness of breath, low oxygen saturation (70% on room air), and a blood glucose level of 94 ng/dL with EMS. Respiratory failure worsened and was intubated, sedated, and on dual vasopressors for hemodynamic support. He lives in assisted care and does not speak [place]. Remians sedated and ventilated on versed fentanyl, propofol, on vasopressor levophed, phenylnephrine and vasopressin and abx broad coverage with félix+vanco=micafungin. Hospitalization day 2. Urine output since morning is close to none despite lasix and on leung's catheter. Past Medical History DM HTN Neuropathy Past Surgical History Unknown Family History Unknown Social History Unknown, originally from [place], 1.5 years in [place] in a facility. Has a family member locally. Allergies: Coded Allergies: NO KNOWN ALLERGIES (Unverified , 12/21/24) Home Meds Amlodipine, Lisinopril, Gabapentin and Insulin SSI Current Medications Current Medications Medications (Trade) Dose Ordered Sig/Teddy Route PRN Reason Start Time Stop Time Status Last Admin Sodium Chloride (Saline Lock Ns) 10 ml Q8HR IV 12/21/24 22:00 12/22/24 06:07 Docusate Sodium (Colace Capsule) 100 mg BIDPRN PRN PO FOR CONSTIPATION 12/21/24 17:30 Acetaminophen (Tylenol Tablet) 650 mg Q6HP PRN PO PAIN SCALE 1-3 OR TEMP>100.4 12/21/24 17:30 12/22/24 06:58 Acetaminophen/ Hydrocodone Bitart (Clay 5/325MG Tab) 1 tab Q4HP PRN PO MODERATE PAIN (4-6 PAIN SCALE) 12/21/24 17:30 Hydromorphone HCl (Dilaudid Injection) 0.5 mg Q4HP PRN IV SEVERE PAIN (7-10 PAIN SCALE) 12/21/24 17:30 Ondansetron HCl (Zofran) 4 mg Q4HP PRN IV NAUSEA / VOMITING 12/21/24 17:30 Pantoprazole Sodium (Protonix) 40 mg BID IV 12/21/24 22:00 12/22/24 09:30 Piperacillin Sod/ Tazobactam Sod 100 ml @ 25 mls/hr Q12H IV 12/21/24 17:45 12/22/24 11:00 DC 12/22/24 05:24 Diagnostic Test (Pha) (Accu-Chek Comfort Curve T) 1 strip Q6HR 12/21/24 18:00 12/22/24 11:54 Insulin Human Regular (InsuLIN R) Q6HR SC 12/21/24 18:00 Dextrose 50 ml UD PRN IV Blood Sugar LESS THAN 60 12/21/24 17:45 12/22/24 07:59 Hydralazine HCl (Apresoline Injection) 10 mg Q6H PRN IV SBP > 165 12/21/24 17:45 Midazolam HCl 50 ml @ 1 mls/hr Q24H IV 12/21/24 17:45 12/22/24 12:02 Furosemide (Lasix Injection) 40 mg DAILY IV 12/22/24 10:00 12/22/24 09:30 Vancomycin HCl 0 ml @ 0 mls/hr UD IV 12/21/24 18:30 Norepinephrine Bitartrate 250 ml @ 3.75 mls/hr Q24H IV 12/22/24 01:15 12/22/24 09:02 DC 12/22/24 01:00 Fentanyl Citrate 250 ml @ 2.5 mls/hr Q24H IV 12/22/24 02:15 12/22/24 02:20 Phenylephrine HCl 250 ml @ 30 mls/hr Q8H20M IV 12/22/24 06:15 12/22/24 09:03 DC 12/22/24 06:19 Phenylephrine HCl 80 mg/Sodium Chloride 250 ml @ 7.5 mls/hr Q24H IV 12/22/24 08:30 12/22/24 08:30 Norepinephrine Bitartrate 32 mg/ Sodium Chloride 250 ml @ 0.938 mls/ hr Q24H IV 12/22/24 08:30 12/22/24 08:30 Meropenem 50 ml @ 17 mls/hr Q12HR IV 12/22/24 11:00 Micafungin Sodium 100 mg/Sodium Chloride 100 ml @ 100 mls/hr DAILY IV 12/23/24 10:00 Albuterol (Ventolin Medneb) 2.5 mg Q6HR NEB 12/22/24 12:00 Ipratropium [place] (Atrovent Medneb) 0.5 mg Q6HR NEB 12/22/24 12:00 Acetylcysteine (Mucomyst Inahalation 10%) 100 mg Q6HR NEB 12/22/24 12:00 Hydrocortisone Sodium Succinate (Solu-CORTEF INJECTION) 100 mg Q12HR IV 12/22/24 22:00 Vasopressin 20 units/Sodium Chloride 100 ml @ 9 mls/hr Q11H7M IV 12/22/24 12:00 Review of Systems Intubated and sedated unable to assess. Vital Signs Vital Signs Date Time Temp Pulse Resp B/P (MAP) Pulse Ox O2 Delivery O2 Flow Rate FiO2 12/22/24 12:02 91/48 12/22/24 10:45 100.2 92 19 212.4 12/22/24 10:15 100 12/22/24 10:00 Mechanical Ventilator+ 70 70 Physical Exam General Appearance: Endotracheally intubated. Chemically sedated. On tripple vasopressor. RASS -3 looks sick Head Exam: Normal inspection Neck Exam: Normal inspection. Normal alignment Pulmonary/Respiratory: Diminished bilateral breath sounds. Endotracheally intubated 60% FiO2, crackles b/l Cardiovascular/Chest: Regular rate and rhythm. S1, S2. No murmurs. No JVD. On dual vasopressor Peripheral Pulses: 2+ Radial (R). 2+ Radial (L). 2+ Pedal (R). 2+ Pedal (L) Abdominal Exam: Normal bowel sounds. Soft. Ankle Exam: Negative ankle edema Lower extremities: Negative lower extremity edema Neuro/Mental Status: Chemically sedated. Withdrawn Thoughts/Psych: Unable to assess at this time Appearance: as above. Skin Exam: Normal inspection. Normal color. Hot. Dry Labs/Diagnostic Data Labs Test 12/22/24 11:50 12/22/24 08:15 12/22/24 07:36 12/22/24 03:31 Range/Units POC Glucose 85 70-106 mg/dl Lactate Dehydrogenase 294 H 120-246 U/L Troponin I High Sensitivity 2457 *H </=54 ng/L Blood Gas Specimen Type Arterial Blood Gas Sample Site Right radial Blood Gas Patient Temperature 37.0 Arterial Blood Date Drawn [id number] Arterial Blood pH 7.232 *L 7.350-7.450 Arterial Blood Partial Pressure CO2 41.6 35.0-48.0 mmHg Arterial Blood Partial Pressure O2 125.8 H 83.0-108.0 mmHg Arterial Blood HCO3 17.1 L 21.0-28.0 mmol/L Arterial Blood Oxygen Saturation 98.0 94.0-98.0 % Arterial Blood Base Excess -9.7 L -2.0-3.0 mmol/L Arterial Blood Oxyhemoglobin 96.7 94.0-98.0 % Arterial Blood Carboxyhemoglobin 0.5 0.5-1.5 % Arterial Blood Methemoglobin 0.8 0.0-1.5 % Dharmesh Test Modified Blood Gas Total Hemoglobin 8.60 L 13.5-17.5 g/dL Blood Gas Set Respiration Rate 20.0 Blood Gas Modality Vent - ac FiO2 % 70.0 Blood Gas Tidal Volume 550.0 Blood Gas PEEP or CPAP 12.0 Blood Gas Critical Value Read Back Yes Blood Gas Notified Whom adriana Menendez md Blood Gas Notified Time [id number] Blood Gas Notified By [employer] Manager roberto johnson White Blood Count 1.0 #*L 4.4-10.8 10^3/uL Red Blood Count 2.35 L 4.5-5.90 10^6/uL Hemoglobin 7.4 #L 13.5-17.5 g/dL Hematocrit 22.6 #L 41.0-53.0 % Mean Corpuscular Volume 96.2 80.0-100.0 fL Mean Corpuscular Hemoglobin 31.3 28.0-32.0 pg Mean Corpuscular Hemoglobin Concent 32.6 32.0-36.0 g/dL Red Cell Distribution Width 23.9 H 11.8-14.3 % Platelet Count 83 L 140-450 10^3/uL Mean Platelet Volume 8.5 6.9-10.8 fL Neutrophils (%) (Auto) 70.9 37.0-80.0 % Lymphocytes (%) (Auto) 24.2 10.0-50.0 % Monocytes (%) (Auto) 4.6 0.0-12.0 % Eosinophils (%) (Auto) 0.2 0.0-7.0 % Basophils (%) (Auto) 0.1 0.0-2.0 % Neutrophils # (Auto) 0.7 L 1.6-8.6 10 ^3/uL Lymphocytes # (Auto) 0.2 L 0.4-5.4 10 ^3/uL Monocytes # (Auto) 0 0-1.3 10 ^3/uL Eosinophils # (Auto) 0 0-0.8 10 ^3/uL Basophils # (Auto) 0 0-0.2 10 ^3/uL Nucleated Red Blood Cells 0.8 % Platelet Estimate Decrea Large Platelets Few Sodium Level 138 136-145 mmol/L Potassium Level 5.0 3.5-5.1 mmol/L Chloride Level 102 98-107 mmol/L Carbon Dioxide Level 19 L 20-31 mmol/L Anion Gap 17 H 5-15 Blood Urea Nitrogen 54 H 9-23 mg/dL Creatinine 3.87 H 0.700-1.30 mg/dL Glomerular Filtration Rate Calc 17 >90 mL/min BUN/Creatinine Ratio 14.0 10.0-20.0 Serum Glucose 77 74-106 mg/dL Hemoglobin A1c 5.4 <5.7 % A1C Calcium Level 10.3 8.7-10.4 mg/dL Magnesium Level 2.1 1.6-2.6 mg/dL Total Bilirubin 0.8 0.2-1.0 mg/dL Aspartate Amino Transferase (AST) 132 H 13-40 U/L Alanine Aminotransferase (ALT) 127 H 7-40 U/L Alkaline Phosphatase 27 L 46-116 U/L B-Type Natriuretic Peptide 4001.78 0-100 pg/mL Total Protein 9.3 H 5.7-8.2 g/dL Albumin 2.0 L 3.2-4.8 g/dL Triglycerides Level 81 < 150 mg/dL Cholesterol Level < 50.0 < 200 mg/dL LDL Cholesterol 6 < 100 mg/dL HDL Cholesterol 9 L 40-59 mg/dL Thyroid Stimulating Hormone (TSH) 0.92 0.55-4.78 uIU/mL Random Vancomycin Level 11.7 H 5-10 ug/mL HIV (1&2) Antibody Negative Negative Test 12/22/24 02:46 12/21/24 20:55 12/21/24 15:33 12/21/24 13:58 Range/Units Lactic Acid Level 3.8 *H 0.4-2.0 mmol/L D-Dimer, Quantitative 1.55 H 0.0-0.49 mg/L FEU Blood Gas Spontaneous Rate 30 Blood Gas EPAP 8 Blood Gas IPAP 14 Blood Gas Liter Flow 15.00 Test 12/21/24 12:12 12/21/24 12:07 12/21/24 11:58 Range/Units Influenza Type A Antigen Negative Negative Influenza Type B Antigen Negative Negative SARS-CoV-2 Antigen (Rapid) Negative NEGATIVE Urine Color Light-yellow Yellow Urine Clarity Clear Clear Urine pH 5.5 5.0-9.0 Urine Specific [place] 1.016 1.001-1.035 Urine Protein 2+ H Negative Urine Ketones Negative Negative Urine Blood 1+ H Negative /uL Urine Nitrite Negative Negative Urine Bilirubin Negative Negative Urine Urobilinogen Normal Negative mg/dL Urine Leukocyte Esterase Negative Negative /uL Urine RBC 4 0 - 3 /hpf Urine Microscopic WBC 2 0-3 /HPF Urine Squamous Epithelial Cells None seen <5 /hpf Urine Bacteria Few H None Seen /hpf Urine Creatinine 125.39 H 30.0-125.0 mg/dL Urine Sodium < 10 L 40-220 mmol/L Urine Glucose Normal Normal mg/dL Differential Total Cells Counted 100.0 100 Neutrophils % (Manual) 58 37.0-80.0 Band Neutrophils % (Manual) 12 Lymphocytes % (Manual) 23 10.0-50.0 Monocytes % (Manual) 7 0-12 Eosinophils % (Manual) 0 0-7 Basophils % (Manual) 0 0.0-2.0 Metamyelocytes % (manual) 0 Myelocytes % (Manual) 0 Promyelocytes % (Manual) 0 Blast Cells % (Manual) 0 Reactive Lymphocytes 0 Prothrombin Time 17.4 H 9.3-11.8 sec Prothrombin Time INR 1.73 H 0.9-1.15 Activated Partial Thromboplast Time 34.6 H 24.5-34.5 SEC Plasma/Serum Blood Alcohol < 3.0 <10 mg/dL Microbiology Date/Time Source Procedure Growth Status 12/21/24 11:58 Blood Blood Culture - Preliminary NO GROWTH AFTER 24 HOURS OF INCUBATION. Resulted Assessment #RYAN likely prerenal etiology #Anion-gap metabolic acidosis: Primary respiratory acidosis with secondary metabolic acidosis and additional metabolic alkalosis. #CKD stage III likely at baseline. #h/o HTN amlodipine, losartan #Severe sepsis with septic brady d/t multifocal pneumonia #pancytopenia , worsening thrombocytopenia #Neutropenic, with leukopenia worsening with left shift. #Acute blood loss anemia s/p 2 PRBC #DM on insulin SSI , resolved likely due to worsening renal function HbA1C 5.4 #Transaminitis #Moderate protein energy malnutrition #Diabetic neuropathy on gabapentin. #Type II NSTEMI #Likely CHF exacerbation TTEcho pending. Findings: Volume Status: hypotensive, but could be volumed overloaded. Nutrition: None IVF: D5 NaHCO3 drip 150 cc/hour FeNa: 0.2% prerenal. BUN:Cr=16.48 I/J=[id number]=1751.50 +ve balance but u/o close to zero since 12/22 AM. Cr=2.73>3.87 (no known baseline) BUN=45>54 GFR=26>17 Renal US with bladder: no obstruction noted. Addendum Patient seen and examined, plan discussed with resident. Agree with above, we will follow closely Possible prerenal Acute kidney injury progressing to ATN secondary to shock Lasix drip diuretic challenge Bicarb based fluid for correction acidosis Hold all antihypertensives Plan/Recommendation Plan: 1. Start lasix drip on 10 cc/hour and close follow up of urine output. Use quad concentration of pressors and limit Limit fluid intake. 2. Close I/O, keep on foleys, avoid hyper and hypotension keep MAP>65, avoid nephrotoxics in ICU level of care, will benefit from a-line placement. 3. Vancomycin as per pharmacy, note the vancomycin trough closely, hold when necessary. 4. Keep BG 140-180 as per NICE sugar trial and continue the bicarb and D5 drip. Start NG tube feeding as early as possible. 5. Rest of the treatment as per [facility] ICU team, and cardiology. Poor overall outcome likely due to complicated multiorgan failure. Thank you for the opportunity to consult on your patient. In case of any question feel free to reach out to the Nephrology team. Will follow the patient. Discussed with Nephrology attending Dr. Cheney. Plan discussed with: Other (primary team, RN) ELIZABETH STRAUSS Dec 22, 2024 12:18 YOBANI CHENEY MD Dec 22, 2024 15:53
[2024-12-22] MEDS: VASOPRESSIN 20 UNITS in SODIUM CHL 0.9% 99 ML IV SCH (12:30)
[2024-12-22] MEDS: MEROPENEM 500MG IVPB 50 ML IV SCH (12:39)
--- NOTE | 2024-12-22 13:17 | DVH ---
Renal ultrasound HISTORY: patient on foleys. TECHNIQUE: 2 D ultrasound was performed with transaxial and longitudinal images. FINDINGS: Right kidney measures 10 cm and left kidney measures 11.2 cm. No renal masses, stones or hy dronephrosis. Urinary bladder contains a Romero catheter IMPRESSION: 1. Echogenic renal parenchyma consistent with chronic renal parenchymal disease. No masses stones or hydronephrosis
--- NOTE | 2024-12-22 13:43 | DVHSR ---
APPROVED REPORT EXAM: Two-dimensional and M-mode echocardiogram with Doppler and color Doppler. Blood Pressure: 99/54 mmHg INDICATION Elevated trop R/O acs RISK FACTORS Height: 5'9", Weight: 165 DIMENSIONS LVDd5.7 (3.8-5.7cm)LA (2D)4.3 (1.9-4.0cm)Aortic Root3.3 (2.0-3.7cm) LVDs4.6 (2.5-4.0cm)LA (MM) (1.9-4.0cm)Aortic Cusp Exc1.8 (1.5-2.0cm) EF (%) 40.0 (55-70%)Rt. Atrium4.5 (1.9-4.0cm)Asc. Aorta cm IVSd1.3 (0.7-1.1cm)RV (D) (1.8-2.4cm) PWd1.1 (0.7-1.1cm) Mitral Valve MitralMitral Stenosis E wave0.98m/sMV Mean GR.mmHg A wave0.38m/sMV Peak GR.mmHg E/A ratio2.62D MVAcm2 DECEL [id number] 1/2 Timems Aortic Valve Aortic ValveAortic Stenosis V11.00m/Taj Mean GR.5mmHg V21.46m/Taj Peak GR.9mmHg LVOT Diameter2.3 (1.8-2.4cm)Doppler AVA2.84cm2 Pulmonic Valve V21.33m/s Tricuspid Valve TR Velocity2.71m/s [id number] Conclusion The ventricular is normal size Left ventricular systolic function is [id number] depressed Ejection fraction is estimated at 40-45% by visual estimate There is mildly sclerotic aortic valve without evidence of stenosis There is mild mitral regurgitation There is mild tricuspid regurgitation There is mild pulmonary hypertension estimated at 45 mmHg There is no pericardial effusion
[2024-12-22 13:51] LABS: Lactic Acid w/Reflex 4.8 mmol/L (0.4-2.0)
[2024-12-22] MEDS: VANCOMYCIN 1GM/250ML KIT 250 ML IV ONE (15:52)
[2024-12-22] MEDS: FUROSEMIDE INJECTION 100 MG in SODIUM CHL 0.9% 100 ML IV SCH (16:01)
[2024-12-22] MEDS: ACETAMINOPHEN IV 1000 MG/100ML (10MG/ML) IV ONE ×2 (17:00→17:01)
[2024-12-22] MEDS ORDERED: FUROSEMIDE 40 MG/4 ML VIAL IV SCH (18:00)
--- NOTE | 2024-12-22 20:29 | DVHNC2 ---
Arterial Puncture Indication: Assess ventilatory status, Assess acid-base status Procedure: Arterial Punct Obtained Location: Right Radial Informed consent obtained: Yes Risks/benefits/alt described: Yes Notes EBL: 3ml Ultrasound CPT code: 80964 Date of Service: Dec 22, 2024 Billing Provider: TESSIE MASON NP Common Visit Codes: PROCEDURE ONLY Procedure Codes: [id number] LINE TESSIE MASON NP Dec 22, 2024 20:29
[2024-12-22] MEDS: HYDROCORTISONE SOD SUCC 100 MG/2ML INJ VIAL IV SCH (21:28)
[2024-12-22 22:03] LABS: Basophils # (auto) 0 10 ^3/uL (0-0.2); Basophils % (auto) 0.5 % (0.0-2.0); Eosinophils # (auto) 0 10 ^3/uL (0-0.8); Eosinophils % (auto) 0.2 % (0.0-7.0); Hematocrit 21.8 % (41.0-53.0); Lymphocytes # (auto) 0.3 10 ^3/uL (0.4-5.4); Lymphocytes % (auto) 10.4 % (10.0-50.0); Mean Corpuscular Hemoglobin 30.9 pg (28.0-32.0); Mean Corpuscular Hgb Conc. 32.1 g/dL (32.0-36.0); Mean Corpuscular Volume 96.1 fL (80.0-100.0); Monocytes # (auto) 0.1 10 ^3/uL (0-1.3); Monocytes % (auto) 1.8 % (0.0-12.0); Neutrophils # (auto) 2.4 10 ^3/uL (1.6-8.6); Neutrophils % (auto) 87.1 % (37.0-80.0); Platelet Count (auto) 58 10^3/uL (140-450); Red Blood Cells 2.27 10^6/uL (4.5-5.90); White Blood Cell 2.8 10^3/uL (4.4-10.8)
[2024-12-22 22:10] LABS: Red Cell Distribution Width 23.7 % (11.8-14.3)
[2024-12-22 22:18] LABS: Alanine Aminotransferase 257 U/L (7-40); Alkaline Phosphatase 21 U/L (46-116); Anion Gap 18 (5-15); Aspartate Aminotransferase 263 U/L (13-40); BUN/Creatinine Ratio 13.1 (10.0-20.0); Bilirubin, Total 0.9 mg/dL (0.2-1.0); Blood Urea Nitrogen 71 mg/dL (9-23); Carbon Dioxide 19 mmol/L (20-31); Chloride 102 mmol/L (98-107); Glucose 130 mg/dL (74-106); Potassium 5.4 mmol/L (3.5-5.1); Sodium 139 mmol/L (136-145)
[2024-12-22 22:19] LABS: Albumin 2.1 g/dL (3.2-4.8)
[2024-12-22 22:28] LABS: Anisocytosis Moderate; Platelet Estimate Decreased
[2024-12-22 22:33] LABS: Large Platelets FEW
[2024-12-22] MEDS: SODIUM ZIRCONIUM CYCL 10 GM PAK PO ONE (23:34)
[2024-12-23] VITALS (112 sets, daily range): BP systolic 49–145; BP diastolic 29–101; PULSE 87–107; RESP 14–30; TEMP 97.9–99; O2SAT 96–100
[2024-12-23] MEDS: SODIUM BICARB 8.4% 50Meq/50ml SYR Vial IV ONE ×3 (05:01→12:26)
--- NOTE | 2024-12-23 05:22 | DVH ---
EXAM: XR Chest, 1 View CLINICAL INDICATION: INTUBATED TECHNIQUE: Frontal view of the chest. COMPARISON: XY CHEST XRAY 1 VIEW on DOS: 12/22/24, XY CHEST XRAY 1 VIEW on DOS: 12/22/24, XY CHEST XR AY 1 VIEW on DOS: 12/21/24, XY CHEST PORTABLE on DOS: 12/21/24, XY CHEST PORTABLE on DOS: 12/21/24 FINDINGS: LUNGS AND PLEURAL SPACES: Pulmonary congestion and edema. Pneumonia cannot be excluded. No pneumot horax. HEART: Unremarkable. No cardiomegaly. MEDIASTINUM: Unremarkable. Normal mediastinal contour. BONES/JOINTS: Unremarkable. No acute fracture. TUBES, LINES AND DEVICES: Stable tubes and lines. OTHER FINDINGS: . .. IMPRESSION: Pulmonary congestion and edema. Pneumonia cannot be excluded.
[2024-12-23] MEDS: SODIUM BICARB 50mEq/50ml Vial 100 ML in SOD CHL 0.45% 1,000 ML IV ONE (06:36)
[2024-12-23 06:39] LABS: Anion Gap 20 (5-15); BUN/Creatinine Ratio 12.4 (10.0-20.0); Chloride 101 mmol/L (98-107); Magnesium 2.2 mg/dL (1.6-2.6); Sodium 139 mmol/L (136-145)
[2024-12-23 06:42] LABS: Alanine Aminotransferase 298 U/L (7-40); Albumin 2.1 g/dL (3.2-4.8); Alkaline Phosphatase 21 U/L (46-116); Aspartate Aminotransferase 287 U/L (13-40); Blood Urea Nitrogen 71 mg/dL (9-23); Calcium 7.9 mg/dL (8.7-10.4); Carbon Dioxide 18 mmol/L (20-31); Glucose 161 mg/dL (74-106)
[2024-12-23 06:45] LABS: Lactic Acid w/Reflex 3.3 mmol/L (0.4-2.0); Potassium 5.9 mmol/L (3.5-5.1)
[2024-12-23 06:53] LABS: Hemoglobin 7.6 g/dL (13.5-17.5); White Blood Cell 4.8 10^3/uL (4.4-10.8)
[2024-12-23 06:58] LABS: Hematocrit 22.4 % (41.0-53.0); Mean Corpuscular Hemoglobin 31.7 pg (28.0-32.0); Mean Corpuscular Hgb Conc. 33.7 g/dL (32.0-36.0); Mean Corpuscular Volume 94.1 fL (80.0-100.0); Platelet Count (auto) 54 10^3/uL (140-450); Red Blood Cells 2.39 10^6/uL (4.5-5.90)
[2024-12-23 07:00] LABS: Red Cell Distribution Width 22.4 % (11.8-14.3)
[2024-12-23 07:01] LABS: Basophils % (manual) 0 (0.0-2.0); Blast Cells 0; Eosinophils % (manual) 0 (0-7); Metamyelocytes % 0; Myelocytes % 0; Promyelocytes % 0; Reactive Lymphocytes 0
[2024-12-23 07:21] LABS: Base Excess -7.7 mmol/L (-2.0-3.0)
[2024-12-23 07:51] LABS: Anisocytosis Slight; Band Neutrophils % (manual) 17; Lymphocytes % (manual) 9 (10.0-50.0); Monocytes % (manual) 2 (0-12); Platelet Estimate Decreased
[2024-12-23 07:52] LABS: Rouleau Present
[2024-12-23] MEDS: DEXTROSE (50%) 50ML SYRG IV ONE (07:59)
[2024-12-23] MEDS: SODIUM ZIRCONIUM CYCL 10 GM PAK PO ONE ×2 (07:59→12:30)
[2024-12-23] MEDS: InsuLIN REG 1unit/0.01ml Soln (100units/ml) IV ONE (08:06)
[2024-12-23 09:07] LABS: Complement C3 27 mg/dL (82-167)
--- NOTE | 2024-12-23 09:31 | DVHINCON2 ---
Date of service: Dec 23, 2024 Referring Physician Gorge Ferreira NP Reason for Consultation Pancytopenia, sepsis, liver dysfunction History of Present Illness 59 years old [place] gentleman who is intubated. He has a history of insulin- dependent diabetes mellitus, essential hypertension. He was admitted with altered level of consciousness, shortness of breath O2 saturation 70%. Patient had respiratory failure and was intubated and was on vasopressors On 12/21/2024: White count was 1.8 hemoglobin 6.3 platelets 115,000. Today the platelets are 54,000 white count is 4.8 hemoglobin is 7.6. The patient has been transfused 3 units of packed red cells. Platelets confirmed on the blood smear. There is some rouleaux formation His potassium is 5.9 BUN 71 creatinine 5.7. Calcium 7.9 phosphorus 11 total sonia i 1 AST 287 ALT 298 alkaline phosphatase 21 total protein 9 albumin 2.1 PT/INR 1.7 PTT 34.6. D-dimer 1.5 HIV 1 and 2 is negative. Influenza A and B is negative. COVID-19 is negative There is no bruising or bleeding. Preliminary blood cultures are positive for aerobic blood cultures after 48 hours The patient is on micafungin sodium bicarbonate Solu-Cortef furosemide vasopressin acetylcysteine Atrovent meropenem norepinephrine, phenylephrine, Protonix, vancomycin, insulin Chest x-ray showed pulmonary congestion and edema and pneumonia could not be excluded Renal ultrasound showed chronic renal disease Abdominal ultrasound showed bilateral pleural effusions Past Medical History Diabetes, hypertension, CKD Family History: Patient reports no known family medical history. Allergies: Coded Allergies: NO KNOWN ALLERGIES (Unverified , 12/21/24) Current Medications Current Medications Medications (Trade) Dose Ordered Sig/Teddy Route PRN Reason Start Time Stop Time Status Last Admin Furosemide (Lasix Injection) 40 mg DAILY IV 12/22/24 10:00 12/22/24 13:26 DC 12/22/24 09:30 Meropenem 50 ml @ 17 mls/hr Q12HR IV 12/22/24 11:00 12/22/24 21:30 Micafungin Sodium 100 mg/Sodium Chloride 100 ml @ 100 mls/hr DAILY IV 12/23/24 10:00 Albuterol (Ventolin Medneb) 2.5 mg Q6HR NEB 12/22/24 12:00 12/23/24 06:22 Ipratropium [place] (Atrovent Medneb) 0.5 mg Q6HR NEB 12/22/24 12:00 12/23/24 06:22 Acetylcysteine (Mucomyst Inahalation 10%) 100 mg Q6HR NEB 12/22/24 12:00 12/23/24 06:22 Hydrocortisone Sodium Succinate (Solu-CORTEF INJECTION) 100 mg Q12HR IV 12/22/24 22:00 12/22/24 21:28 Vasopressin 20 units/Sodium Chloride 100 ml @ 9 mls/hr Q11H7M IV 12/22/24 12:00 12/22/24 20:32 Furosemide (Lasix Injection) 40 mg BIDD IV 12/22/24 18:00 12/22/24 13:46 DC Furosemide 100 mg/ Sodium Chloride 110 ml @ 11 mls/hr Q10H IV 12/22/24 13:45 12/23/24 00:59 Vital Signs Vital Signs Date Time Temp Pulse Resp B/P (MAP) Pulse Ox O2 Delivery O2 Flow Rate FiO2 12/23/24 08:40 94 24 107/47 (67) 100 50 12/23/24 07:30 98.8 209.8 12/23/24 06:00 Mechanical Ventilator+ Physical Exam GENERAL: The patient is a moderately built and nourished ,in no distress, the patient is sedated and intubated HEAD AND NECK: Unremarkable. No neck nodes or masses. Conjunctivae: Unremarkable for any mucosal hemorrhage or inflammation. Thyroid is nonpalpable. Throat is unremarkable. SPINE: No deformities or tenderness. CHEST: Chest wall, no tenderness. LUNGS: Clear. CARDIOVASCULAR: Regular sinus rhythm. No murmurs or gallops. ABDOMEN: No organomegaly, tenderness or ascites. Bowel sounds present. EXTREMITIES: No clubbing, edema or cyanosis. Peripheral pulses palpable. No calf tenderness. LYMPHATICS: No significant lymphadenopathy. NEUROLOGIC: No focal neurological deficits. SKIN: Unremarkable for any petechiae, purpura, or ecchymosis. Available data reviewed Labs/Diagnostic Data Labs Test 12/23/24 07:54 12/23/24 07:15 12/23/24 05:30 12/22/24 21:30 Range/Units POC Glucose 165 H 70-106 mg/dl Blood Gas Specimen Type Arterial Blood Gas Sample Site Arterial line Blood Gas Patient Temperature 37.0 Arterial Blood Date Drawn [id number] Arterial Blood pH 7.188 *L 7.350-7.450 Arterial Blood Partial Pressure CO2 54.5 H 35.0-48.0 mmHg Arterial Blood Partial Pressure O2 131.1 H 83.0-108.0 mmHg Arterial Blood HCO3 20.3 L 21.0-28.0 mmol/L Arterial Blood Oxygen Saturation 98.2 H 94.0-98.0 % Arterial Blood Base Excess -7.7 L -2.0-3.0 mmol/L Arterial Blood Oxyhemoglobin 97.8 94.0-98.0 % Arterial Blood Carboxyhemoglobin 0.3 L 0.5-1.5 % Arterial Blood Methemoglobin 0.1 0.0-1.5 % Dharmesh Test N/a Blood Gas Total Hemoglobin 8.60 L 13.5-17.5 g/dL Blood Gas Set Respiration Rate 20.0 Blood Gas Modality Vent - ac FiO2 % 50.0 Blood Gas Tidal Volume 550.0 Blood Gas PEEP or CPAP 12.0 Blood Gas Critical Value Read Back Yes Blood Gas Notified Whom Dr. marsha rushing Blood Gas Notified Time [id number] Blood Gas Notified By Rt sussy sibley White Blood Count 4.8 # 4.4-10.8 10^3/uL Red Blood Count 2.39 L 4.5-5.90 10^6/uL Hemoglobin 7.6 L 13.5-17.5 g/dL Hematocrit 22.4 L 41.0-53.0 % Mean Corpuscular Volume 94.1 80.0-100.0 fL Mean Corpuscular Hemoglobin 31.7 28.0-32.0 pg Mean Corpuscular Hemoglobin Concent 33.7 32.0-36.0 g/dL Red Cell Distribution Width 22.4 H 11.8-14.3 % Platelet Count 54 L 140-450 10^3/uL Mean Platelet Volume 9.5 6.9-10.8 fL Neutrophils (%) (Auto) 37.0-80.0 % Lymphocytes (%) (Auto) 10.0-50.0 % Monocytes (%) (Auto) 0.0-12.0 % Basophils (%) (Auto) 0.0-2.0 % Neutrophils # (Auto) 1.6-8.6 10 ^3/uL Lymphocytes # (Auto) 0.4-5.4 10 ^3/uL Monocytes # (Auto) 0-1.3 10 ^3/uL Differential Total Cells Counted 100.0 100 Neutrophils % (Manual) 72 37.0-80.0 Band Neutrophils % (Manual) 17 Lymphocytes % (Manual) 9 L 10.0-50.0 Monocytes % (Manual) 2 0-12 Eosinophils % (Manual) 0 0-7 Basophils % (Manual) 0 0.0-2.0 Metamyelocytes % (manual) 0 Myelocytes % (Manual) 0 Promyelocytes % (Manual) 0 Blast Cells % (Manual) 0 Reactive Lymphocytes 0 Platelet Estimate Decreased Anisocytosis (manual) Slight Rouleaux Present Sodium Level 139 136-145 mmol/L Potassium Level 5.9 *H 3.5-5.1 mmol/L Chloride Level 101 98-107 mmol/L Carbon Dioxide Level 18 L 20-31 mmol/L Anion Gap 20 H 5-15 Blood Urea Nitrogen 71 H 9-23 mg/dL Creatinine 5.71 H 0.700-1.30 mg/dL Glomerular Filtration Rate Calc 11 >90 mL/min BUN/Creatinine Ratio 12.4 10.0-20.0 Serum Glucose 161 H 74-106 mg/dL Lactic Acid Level 3.3 *H 0.4-2.0 mmol/L Calcium Level 7.9 L 8.7-10.4 mg/dL Phosphorus Level 11.0 H 2.4-5.1 mg/dL Magnesium Level 2.2 1.6-2.6 mg/dL Total Bilirubin 1.0 0.2-1.0 mg/dL Aspartate Amino Transferase (AST) 287 H 13-40 U/L Alanine Aminotransferase (ALT) 298 H 7-40 U/L Alkaline Phosphatase 21 L 46-116 U/L Total Protein 9.0 H 5.7-8.2 g/dL Albumin 2.1 L 3.2-4.8 g/dL Random Vancomycin Level 24.4 H 5-10 ug/mL Eosinophils (%) (Auto) 0.2 0.0-7.0 % Eosinophils # (Auto) 0 0-0.8 10 ^3/uL Basophils # (Auto) 0 0-0.2 10 ^3/uL Nucleated Red Blood Cells 1.0 % Large Platelets Few Test 12/22/24 13:06 12/22/24 08:15 12/22/24 03:31 12/21/24 20:55 Range/Units Troponin I High Sensitivity 2531 *H </=54 ng/L Complement C3 27 L 82-167 mg/dL Complement C4 14 12-38 mg/dL Lactate Dehydrogenase 294 H 120-246 U/L Hemoglobin A1c 5.4 <5.7 % A1C B-Type Natriuretic Peptide 4001.78 0-100 pg/mL Triglycerides Level 81 < 150 mg/dL Cholesterol Level < 50.0 < 200 mg/dL LDL Cholesterol 6 < 100 mg/dL HDL Cholesterol 9 L 40-59 mg/dL Thyroid Stimulating Hormone (TSH) 0.92 0.55-4.78 uIU/mL HIV (1&2) Antibody Negative Negative D-Dimer, Quantitative 1.55 H 0.0-0.49 mg/L FEU Test 12/21/24 15:33 12/21/24 13:58 12/21/24 12:12 12/21/24 12:07 Range/Units Blood Gas Spontaneous Rate 30 Blood Gas EPAP 8 Blood Gas IPAP 14 Blood Gas Liter Flow 15.00 Influenza Type A Antigen Negative Negative Influenza Type B Antigen Negative Negative SARS-CoV-2 Antigen (Rapid) Negative NEGATIVE Urine Color Light-yellow Yellow Urine Clarity Clear Clear Urine pH 5.5 5.0-9.0 Urine Specific [place] 1.016 1.001-1.035 Urine Protein 2+ H Negative Urine Ketones Negative Negative Urine Blood 1+ H Negative /uL Urine Nitrite Negative Negative Urine Bilirubin Negative Negative Urine Urobilinogen Normal Negative mg/dL Urine Leukocyte Esterase Negative Negative /uL Urine RBC 4 0 - 3 /hpf Urine Microscopic WBC 2 0-3 /HPF Urine Squamous Epithelial Cells None seen <5 /hpf Urine Bacteria Few H None Seen /hpf Urine Creatinine 125.39 H 30.0-125.0 mg/dL Urine Sodium < 10 L 40-220 mmol/L Urine Glucose Normal Normal mg/dL Test 12/21/24 11:58 Range/Units Prothrombin Time 17.4 H 9.3-11.8 sec Prothrombin Time INR 1.73 H 0.9-1.15 Activated Partial Thromboplast Time 34.6 H 24.5-34.5 SEC Plasma/Serum Blood Alcohol < 3.0 <10 mg/dL Microbiology Date/Time Source Procedure Growth Status 12/21/24 11:58 Blood Blood Culture - Preliminary Resulted Assessment 1. Pancytopenia with hypotension with shock with liver dysfunction, aerobic positivity in the cultures after 48 hours. Tsou cytopenia could be secondary to sepsis in the liver insufficiency, may rule out hepatitis or immune destruction. 2. Hyperglobulinemia and some rouleaux formation on the blood smear, may rule out the possibility of a multiple myeloma 3. Respiratory failure possible pneumonia 4. Renal insufficiency 5. History of diabetes 6. History of hypertension Plan/Recommendation Continue supportive care Check hepatitis panel, DION and rheumatoid factor and will check a serum protein electrophoresis, immunofixation and immunoglobulins and light chains Plan discussed with: Other (Gorge Degroot) GABE HARRIS MD Dec 23, 2024 09:31
--- NOTE | 2024-12-23 09:37 | DVHPN2 ---
Subjective Intubated and sedated Reviewed: Care Plan, H&P, Labs, Medications Changes from previous H/P or p: No Changes General: Per HPI Objective Vitals Vital Signs Date Time Temp Pulse Resp B/P (MAP) Pulse Ox O2 Delivery O2 Flow Rate FiO2 12/23/24 08:40 94 24 107/47 (67) 100 50 12/23/24 07:30 98.8 209.8 12/23/24 06:00 Mechanical Ventilator+ Intake/Output Intake and Output 12/23/24 07:00 Intake Total 3847.9265 ml Output Total 120 ml Balance 3727.9265 ml Intake Oral 150 ml IV Total 3447.9265 ml Blood Product 250 ml Output Urine Total 120 ml General Appearance: severe distress, Other (Intubated and sedated) HEENT: Atraumatic, PERRLA Lungs: Other (Mechanical ventilation. Rhonchi) Cardiovascular: Normal S1, Normal S2 Abdomen: Normal bowel sounds, Soft, No tenderness Back: Flank Tenderness, Midline Tenderness Musculoskeletal: Other (No motor movement) Neuro: Other (Unable to assess) Skin: Dry, Intact Psych/Mental Status: Other (Unable to assess) Medications Current Medications Medications Dose Ordered Sig/Teddy Route Start Time Stop Time Status Last Admin Dose Admin Sodium Chloride 10 ml Q8HR IV 12/21/24 22:00 12/23/24 06:04 10 ML Acetaminophen 650 mg Q6HP PRN PO 12/21/24 17:30 12/22/24 13:57 650 MG Ondansetron HCl 4 mg Q4HP PRN IV 12/21/24 17:30 Pantoprazole Sodium 40 mg BID IV 12/21/24 22:00 12/22/24 21:28 40 MG Diagnostic Test (Pha) 1 strip Q6HR 12/21/24 18:00 12/23/24 06:03 1 STRIP Insulin Human Regular Q6HR SC 12/21/24 18:00 12/23/24 06:02 2 UNITS Dextrose 50 ml UD PRN IV 12/21/24 17:45 12/22/24 07:59 50 ML Hydralazine HCl 10 mg Q6H PRN IV 12/21/24 17:45 Midazolam HCl 50 ml @ 1 mls/hr Q24H IV 12/21/24 17:45 12/23/24 06:06 11 MLS/HR Vancomycin HCl 0 ml @ 0 mls/hr UD IV 12/21/24 18:30 Fentanyl Citrate 250 ml @ 2.5 mls/hr Q24H IV 12/22/24 02:15 12/22/24 17:31 15 MLS/HR Phenylephrine HCl 80 mg/Sodium Chloride 250 ml @ 7.5 mls/hr Q24H IV 12/22/24 08:30 12/22/24 22:20 16.875 MLS/HR Norepinephrine Bitartrate 32 mg/ Sodium Chloride 250 ml @ 0.938 mls/ hr Q24H IV 12/22/24 08:30 12/22/24 22:20 14.063 MLS/HR Meropenem 50 ml @ 17 mls/hr Q12HR IV 12/22/24 11:00 12/22/24 21:30 17 MLS/HR Micafungin Sodium 100 mg/Sodium Chloride 100 ml @ 100 mls/hr DAILY IV 12/23/24 10:00 Albuterol 2.5 mg Q6HR NEB 12/22/24 12:00 12/23/24 06:22 2.5 MG Ipratropium [place] 0.5 mg Q6HR NEB 12/22/24 12:00 12/23/24 06:22 0.5 MG Acetylcysteine 100 mg Q6HR NEB 12/22/24 12:00 12/23/24 06:22 100 MG Hydrocortisone Sodium Succinate 100 mg Q12HR IV 12/22/24 22:00 12/22/24 21:28 100 MG Vasopressin 20 units/Sodium Chloride 100 ml @ 9 mls/hr Q11H7M IV 12/22/24 12:00 12/22/24 20:32 9 MLS/HR Furosemide 100 mg/ Sodium Chloride 110 ml @ 11 mls/hr Q10H IV 12/22/24 13:45 12/23/24 00:59 11 MLS/HR Laboratory Results Laboratory Tests 12/23/24 05:30 Chemistry Test 12/22/24 21:30 12/23/24 05:30 Albumin 2.1 g/dL (3.2-4.8) L 2.1 g/dL (3.2-4.8) L Calcium Level 8.0 mg/dL (8.7-10.4) L 7.9 mg/dL (8.7-10.4) L Total Protein 9.0 g/dL (5.7-8.2) H 9.0 g/dL (5.7-8.2) H Magnesium Level 2.2 mg/dL (1.6-2.6) Phosphorus Level 11.0 mg/dL (2.4-5.1) H LFT Test 12/22/24 21:30 12/23/24 05:30 Alanine Aminotransferase (ALT) 257 U/L (7-40) H 298 U/L (7-40) H Alkaline Phosphatase 21 U/L (46-116) L 21 U/L (46-116) L Aspartate Amino Transferase (AST) 263 U/L (13-40) H 287 U/L (13-40) H Total Bilirubin 0.9 mg/dL (0.2-1.0) 1.0 mg/dL (0.2-1.0) Urinalysis Test 12/21/24 12:07 Urine Color Light-yellow (Yellow) Urine Clarity Clear (Clear) Urine pH 5.5 (5.0-9.0) Urine Specific [place] 1.016 (1.001-1.035) Urine Protein 2+ (Negative) H Urine Ketones Negative (Negative) Urine Blood 1+ /uL (Negative) H Urine Nitrite Negative (Negative) Urine Bilirubin Negative (Negative) Urine Urobilinogen Normal mg/dL (Negative) Urine Leukocyte Esterase Negative /uL (Negative) Urine RBC 4 /hpf (0 - 3) Urine Microscopic WBC 2 /HPF (0-3) Urine Squamous Epithelial Cells None seen /hpf (<5) Urine Bacteria Few /hpf (None Seen) H Urine Creatinine 125.39 mg/dL (30.0-125.0) H Urine Sodium < 10 mmol/L (40-220) L Urine Glucose Normal mg/dL (Normal) Blood Gas Results Test 12/23/24 00:18 12/23/24 07:15 Arterial Blood pH 7.182 (7.350-7.450) 7.188 (7.350-7.450) FiO2 % 55.0 50.0 Microbiology Microbiology Date/Time Source Procedure Growth Status 12/21/24 11:58 Blood Blood Culture - Preliminary Resulted Labs and/or images reviewed: Labs reviewed by me, Image(s) reviewed by me Assessment/Plan Assessment/Plan Impression: -acute hypoxic respiratory failure -multifocal pneumonia , community-acquired, probable Gram-positive/Gram-negative etiology -severe sepsis with shock -acute kidney injury, hemodynamically mediated. Probable underlying CKD -nicotine dependence -diabetes mellitus -primary hypertension -pancytopenia -NSTEMI type 2 -transaminitis -diabetes mellitus, periods of hypoglycemia Plan: Events: Worsening renal function. Discussed case with Nephrology. HD catheter was placement myself. Plans for HD today. Patient continues to be on three vasopressors. ABG reviewed. Respiratory rate increase for hypercarbic failure. Peep decreased to 10 given patient was now on 50% FiO2. -continue vasopressor therapy with norepinephrine and phenylephrine, vasopressin -add hydrocortisone 100 mg IV b.i.d. -antibiotic therapy: Vancomycin, meropenem, micafungin -PUD, DVT prophylaxis -consultations: Cardiology, Nephrology, Hematology -continue current ventilator settings -repeat labs, chest x-ray, ABG in a.m. Critical care time spent with patient discussing and formulating plan of care: 90 minutes. This does not include time spent performing procedures. This medical document was created using an electronic medical record system with Bruxie dictation system. Although this document has been carefully reviewed, there may still be some phonetic and typographical errors. These areas are purely typographical due to imperfections of the software programs, and do not reflect any compromise in the patient's medical care. Plan discussed with: Patient, Other (RN) My Orders Orders - TESSIE MASON NP Procedure Category Date Status Time Meropenem 500mg Ivpb PHA 12/22/24 In Process (Merrem 500mg/Ns) 11:00 Central Line W/ Cont ORDERS 12/22/24 Transmitted CVP 10:52 *[facility] CONS 12/22/24 Transmitted -[place] 10:52 Micafungin Sodium PHA 12/23/24 In Process (Mycamine) 10:00 Albuterol Medneb PHA 12/22/24 In Process (Ventolin Medneb) 12:00 Ipratropium Medneb PHA 12/22/24 In Process (Atrovent Medneb) 12:00 Acetylcysteine PHA 12/22/24 In Process Inhalation 10% 12:00 Hydrocortisone PHA 12/22/24 In Process Succinate Inj 22:00 * Hematology/Oncology CONS 12/22/24 Transmitted Consult 11:21 Sodium Chl 0.9% PHA 12/22/24 In Process (So... W/Vasopressin 12:00 Quantiferon-Tb Gold LAB 12/22/24 In Process 11:49 [facility] US 12/22/24 Logged Access 15:54 Urine Bacterial JI 12/22/24 In Process Culture 16:38 Mrsa Screen JI 12/22/24 In Process 11:30 Ventilator Orders RT 12/23/24 Transmitted 08:07 Us [facility] US 12/23/24 Logged Access 08:57 Chest Xray 1 View XY 12/23/24 Logged 09:31 Date of Service: Dec 23, 2024 Billing Provider: TESSIE MASON NP Common Visit Codes: [id number] CARE 30-74 MIN TESSIE MASON NP Dec 23, 2024 09:37
--- NOTE | 2024-12-23 09:42 | DVHNC2 ---
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: Other (Jose Maria Mason RN) Indication: Other (Hemodialysis) Room prepared for procedure: Yes Master Police Detective performed hand hygien: Yes Maximal sterile barrier precau: Mask/Eye shield, Sterile gown, Cap, Sterlie gloves, Large sterlie drape Skin preparation completely dr: Yes Insertion site: Left, Internal jugular Central line catheter type: Dialysis non-tunneled Number of lumens: 2 Central line exchanged over a: No Antiseptic ointment applied to: No Post Assessment: Chest X-Ray, Proper placement, No Pneumothorax Notes EBL: 8ml Ultrasound guidance CPT code: 48744 Date of Service: Dec 23, 2024 Billing Provider: TESSIE MASON NP Common Visit Codes: PROCEDURE ONLY Procedure Codes: [id number] NON-TUNNEL CV CATH TESSIE MASON NP Dec 23, 2024 09:42
[2024-12-23 10:02] LABS: Base Excess -8.5 mmol/L (-2.0-3.0)
--- NOTE | 2024-12-23 10:31 | DVH ---
CHEST RADIOGRAPH Indication: HD catheter placement Technique: Single frontal view of the chest was obtained COMPARISON: XY CHEST XRAY 1 VIEW on DOS: 12/23/24, XY CHEST XRAY 1 VIEW on DOS: 12/22/24, XY CHEST XRAY 1 VIEW on DOS: 12/22/24, XY CHEST XRAY 1 VIEW on DOS: 12/21/24, XY CHEST PORTABLE on DOS: 12/21/24 FINDINGS: Lines and Tubes: Endotracheal tube, enteric catheter and right central venous catheter in satisfactor y position. Lungs: Multifocal airspace disease. Pleura: No effusion. No pneumothorax. Cardiomediastinal contours: Cardiomegaly Bones: Unremarkable IMPRESSION: Lines and tubes in satisfactory position. No significant interval change.
--- NOTE | 2024-12-23 10:32 | DVHPN2 ---
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 12/23/24 1032: Consult Progress Note Date Seen: Dec 23, 2024 Subjective Other Systems: No overnight cardiac events reported Objective vital signs Vital Sign Date Time Temp Pulse Resp B/P (MAP) Pulse Ox O2 Delivery O2 Flow Rate FiO2 12/23/24 08:40 94 24 107/47 (67) 100 50 12/23/24 07:30 98.8 209.8 12/23/24 06:00 Mechanical Ventilator+ Total Intake and Output 12/22/24 12/22/24 12/23/24 15:00 23:00 07:00 Intake Total 1015.2745 ml 1670.775 ml 1161.877 ml Output Total 20 ml 100 ml Balance 1015.2745 ml 1650.775 ml 1061.877 ml medications Current Medications Medications Dose Ordered Sig/Teddy Route Start Time Stop Time Status Last Admin Dose Admin Sodium Chloride 10 ml Q8HR IV 12/21/24 22:00 12/23/24 06:04 10 ML Acetaminophen 650 mg Q6HP PRN PO 12/21/24 17:30 12/22/24 13:57 650 MG Ondansetron HCl 4 mg Q4HP PRN IV 12/21/24 17:30 Pantoprazole Sodium 40 mg BID IV 12/21/24 22:00 12/22/24 21:28 40 MG Diagnostic Test (Pha) 1 strip Q6HR 12/21/24 18:00 12/23/24 06:03 1 STRIP Insulin Human Regular Q6HR SC 12/21/24 18:00 12/23/24 06:02 2 UNITS Dextrose 50 ml UD PRN IV 12/21/24 17:45 12/22/24 07:59 50 ML Hydralazine HCl 10 mg Q6H PRN IV 12/21/24 17:45 Midazolam HCl 50 ml @ 1 mls/hr Q24H IV 12/21/24 17:45 12/23/24 06:06 11 MLS/HR Vancomycin HCl 0 ml @ 0 mls/hr UD IV 12/21/24 18:30 Fentanyl Citrate 250 ml @ 2.5 mls/hr Q24H IV 12/22/24 02:15 12/23/24 08:38 17.5 MLS/HR Phenylephrine HCl 80 mg/Sodium Chloride 250 ml @ 7.5 mls/hr Q24H IV 12/22/24 08:30 12/22/24 22:20 16.875 MLS/HR Norepinephrine Bitartrate 32 mg/ Sodium Chloride 250 ml @ 0.938 mls/ hr Q24H IV 12/22/24 08:30 12/22/24 22:20 14.063 MLS/HR Meropenem 50 ml @ 17 mls/hr Q12HR IV 12/22/24 11:00 12/22/24 21:30 17 MLS/HR Micafungin Sodium 100 mg/Sodium Chloride 100 ml @ 100 mls/hr DAILY IV 12/23/24 10:00 Albuterol 2.5 mg Q6HR NEB 12/22/24 12:00 12/23/24 06:22 2.5 MG Ipratropium [place] 0.5 mg Q6HR NEB 12/22/24 12:00 12/23/24 06:22 0.5 MG Acetylcysteine 100 mg Q6HR NEB 12/22/24 12:00 12/23/24 06:22 100 MG Hydrocortisone Sodium Succinate 100 mg Q12HR IV 12/22/24 22:00 12/22/24 21:28 100 MG Vasopressin 20 units/Sodium Chloride 100 ml @ 9 mls/hr Q11H7M IV 12/22/24 12:00 12/22/24 20:32 9 MLS/HR Furosemide 100 mg/ Sodium Chloride 110 ml @ 11 mls/hr Q10H IV 12/22/24 13:45 12/23/24 00:59 11 MLS/HR Examination: GENERAL:Abnormal, LUNGS:Abnormal (Endotracheally intubated 50% FiO2. +crackles), CVS:Abnormal (On three vasopressors. NSR), NEURO:Abnormal (Chemically sedated), :Abnormal (On lasix drip with minimal urine output) laboratory and microbiology Laboratory Tests 12/23/24 05:30 Test 12/23/24 05:30 Range/Units Serum Glucose 161 H 74-106 mg/dL Problem List/Assessment/Plan Problem List/Assessment/Plan Septic shock with multifocal pneumonia Acute hypoxic respiratory failure Acute david-cardiac syndrome type III NSTEMI, likely type 2 secondary to above Newly diagnosed HFmrEF with LVEF at 40-45% Hx of hypertension Insulin-dependent diabetes mellitus Acute anemia s/p PRBCs x 2 units, ?GI bleed Thrombocytopenia Plan/Recommendation (Dr. Gray) Transthoracic echocardiogram revealed EF 40-45% RVSP 45 mmHg. Continue vasopressors for hemodynamic support. Continue ABX therapy per primary care team. Obtain FOBT and monitor H&H/platelet count closely. Continue respiratory consultation and recommendations. Serial troponin level to follow, continue for a peak and fall. Likely NSTEMI Type II given sepsis, RYAN, and hemodynamic derangement. Thank you for allowing us to participate in this patient's care. Please call if you have any questions or concerns. Critical Care Time: 30 min. This medical document was created using an electronic medical record system with voice recognition software and computerized dictation system. Although this document has been carefully reviewed, there might still be some phonetic and typographical errors. Occasional wrong-word or ``sound-alike substitutions may have occurred due to the inherent limitations of voice recognition software. These areas are purely typographical due to imperfections of the software programs and do not reflect any compromise in the patient's medical care. Please read the chart carefully and recognize, using context, where these substitutions have occurred. Plan discussed with: Other Dietary Evaluation Review Comments: 1) EN Glucerna 1.2 Adolfo @ 65ml/hr, Start @ 30ml/hr increase 10ml/hr Q4H until goal is reached. water flush 50ml Q4H if allowed. 2) Consider TPN/PN if NPO>7 days 3) Advance diet as medically feasible 4) Continue current plan of care Expected Outcomes/Goals: Pt will meet >75% estimated needs Fu 2-3 days CC Plasma Assessment Blood Product Administration S: [id number] Date of Service: Dec 23, 2024 Billing Provider: NATALIE SOL Cardiology Common Codes: [id number] CARE 30-74 MIN HENRIQUE GAMEZ DO 12/23/241948: Consult Progress Note Problem List/Assessment/Plan Problem List/Assessment/Plan The patient was seen and discussed with Natalie Sol NP. I agree with her Assessment and Plan, which was formulated with me. Plan discussed with: Patient Billing Provider: HENRIQUE GAMEZ DO Cardiology Common Codes: [id number] CARE 30-74 MIN NATALIE SOL Dec 23, 2024 10:32 HENRIQUE GAMEZ DO Dec 23, 2024 19:49
[2024-12-23] MEDS: ALBUTEROL SULF 2.5 MG/0.5ML(0.5%) NEB SOLN NEB ONE (12:25)
[2024-12-23] MEDS: CALCIUM GLUC 1,000mg/50ml-NS 50 ML IV ONE (12:26)
[2024-12-23] MEDS: SODIUM ZIRCONIUM CYCL 10 GM PAK PO SCH (14:00)
--- NOTE | 2024-12-23 14:35 | DVHPNRES ---
Progress Note Date Seen: Dec 23, 2024 Resident Creating Document: ELIZABETH STRAUSS RESIDENT Medical Necessity Reason Pt with a Central, PICC or Fol: Yes The following are medically ne: Leung Catheter Subjective Review of Systems Intubated and sedated unable to assess. Objective vital signs Vital Sign Date Time Temp Pulse Resp B/P (MAP) Pulse Ox O2 Delivery O2 Flow Rate FiO2 12/23/24 13:15 98.8 99 24 128/62 (84) 96 209.8 112/70 (84) 12/23/24 12:07 40 12/23/24 12:00 Mechanical Ventilator+ Total Intake and Output 12/22/24 12/22/24 12/23/24 15:00 23:00 07:00 Intake Total 1015.2745 ml 1670.775 ml 1161.877 ml Output Total 20 ml 100 ml Balance 1015.2745 ml 1650.775 ml 1061.877 ml medications Current Medications Medications Dose Ordered Sig/Teddy Route Start Time Stop Time Status Last Admin Dose Admin Sodium Chloride 10 ml Q8HR IV 12/21/24 22:00 12/23/24 06:04 10 ML Acetaminophen 650 mg Q6HP PRN PO 12/21/24 17:30 12/22/24 13:57 650 MG Ondansetron HCl 4 mg Q4HP PRN IV 12/21/24 17:30 Pantoprazole Sodium 40 mg BID IV 12/21/24 22:00 12/23/24 10:46 40 MG Diagnostic Test (Pha) 1 strip Q6HR 12/21/24 18:00 12/23/24 12:17 1 STRIP Insulin Human Regular Q6HR SC 12/21/24 18:00 12/23/24 12:28 2 UNITS Dextrose 50 ml UD PRN IV 12/21/24 17:45 12/22/24 07:59 50 ML Hydralazine HCl 10 mg Q6H PRN IV 12/21/24 17:45 Midazolam HCl 50 ml @ 1 mls/hr Q24H IV 12/21/24 17:45 12/23/24 10:47 11 MLS/HR Vancomycin HCl 0 ml @ 0 mls/hr UD IV 12/21/24 18:30 Fentanyl Citrate 250 ml @ 2.5 mls/hr Q24H IV 12/22/24 02:15 12/23/24 08:38 17.5 MLS/HR Phenylephrine HCl 80 mg/Sodium Chloride 250 ml @ 7.5 mls/hr Q24H IV 12/22/24 08:30 12/23/24 12:16 16.875 MLS/HR Norepinephrine Bitartrate 32 mg/ Sodium Chloride 250 ml @ 0.938 mls/ hr Q24H IV 12/22/24 08:30 12/22/24 22:20 14.063 MLS/HR Meropenem 50 ml @ 17 mls/hr Q12HR IV 12/22/24 11:00 12/23/24 10:49 17 MLS/HR Micafungin Sodium 100 mg/Sodium Chloride 100 ml @ 100 mls/hr DAILY IV 12/23/24 10:00 Albuterol 2.5 mg Q6HR NEB 12/22/24 12:00 12/23/24 12:01 2.5 MG Ipratropium [place] 0.5 mg Q6HR NEB 12/22/24 12:00 12/23/24 12:00 0.5 MG Acetylcysteine 100 mg Q6HR NEB 12/22/24 12:00 12/23/24 12:01 100 MG Hydrocortisone Sodium Succinate 100 mg Q12HR IV 12/22/24 22:00 12/23/24 10:46 100 MG Vasopressin 20 units/Sodium Chloride 100 ml @ 9 mls/hr Q11H7M IV 12/22/24 12:00 12/23/24 10:49 9 MLS/HR Furosemide 100 mg/ Sodium Chloride 110 ml @ 11 mls/hr Q10H IV 12/22/24 13:45 12/23/24 10:50 11 MLS/HR Zirconium Oxide 10 gm TID PO 12/23/24 14:00 12/25/24 06:01 Examination General Appearance: Endotracheally intubated. Chemically sedated. On tripple vasopressor. RASS -3 looks sick Head Exam: Normal inspection Neck Exam: Normal inspection. Normal alignment Pulmonary/Respiratory: Diminished bilateral breath sounds. Endotracheally intubated 60% FiO2, crackles b/l Cardiovascular/Chest: Regular rate and rhythm. S1, S2. No murmurs. No JVD. On dual vasopressor Peripheral Pulses: 2+ Radial (R). 2+ Radial (L). 2+ Pedal (R). 2+ Pedal (L) Abdominal Exam: Normal bowel sounds. Soft. Ankle Exam: Negative ankle edema Lower extremities: Negative lower extremity edema Neuro/Mental Status: Chemically sedated. Withdrawn Thoughts/Psych: Unable to assess at this time Appearance: as above. Skin Exam: Normal inspection. Normal color. Hot. laboratory and microbiology Laboratory Tests 12/23/24 05:30 Test 12/23/24 05:30 Range/Units Serum Glucose 161 H 74-106 mg/dL Microbiology Date/Time Source Procedure Growth Status 12/22/24 17:11 Urine - [place] Urine Culture - Preliminary Resulted 12/21/24 11:58 Blood Blood Culture - Preliminary Resulted Labs and/or images reviewed: Labs reviewed by me, Image(s) reviewed by me Problem List/Assessment/Plan Problem List/Assessment/Plan Mr. DeL os Santos, a 59-year-old man originally from [place], came from a living facility with a history of insulin-dependent diabetes mellitus and essential hypertension, was brought to the emergency room with altered level of consciousness, shortness of breath, and low oxygen saturation. He was intubated, sedated, and placed on dual vasopressors for hemodynamic support. Despite being on broad-spectrum antibiotics and other medications, he has had no urine output since the morning of 12/22. He lives in assisted care, does not speak Turkmen, and remains sedated and ventilated. His past medical history includes diabetes, hypertension, and neuropathy, but his surgical, family, and social histories are largely unknown. The family lives in [place] with and 7 children, Patient making more urine this PM with Lasix drip now has dialysis port pending hemodialysis as soon as possible. Assessment # RYAN likely prerenal etiology secondary to shock. FeNa: 0.2% prerenal.unknown baseline # Lasix drip diuretic challenge 10cc/hour urine output suboptimal, but improved # Worsening Anion-gap metabolic acidosis: Primary respiratory acidosis with secondary metabolic acidosis and additional metabolic alkalosis. 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 IVF: s/p D5 NaHCO3 drip 150 cc/hour off now I/Q=9544-860=(+3695.74) +ve balance with lasix drip 10 cc / hour. Cr=2.73>3.87>5.41>5.71 (no known baseline) BUN=45>54>71>71> GFR=26>17>11>11 Plan: HD in AM 1. lokalma tid. recheck repeat K use hyperkalemia protocol as needed with iv insulin/dextrose. 2. Close I/O, keep on leung's, avoid hyper and hypotension keep MAP>65, avoid antihypertensives, avoid nephrotoxics in ICU level of care. 3. Use quad concentration of pressors, limit Limit fluid intake, hold antihypertensives and continue lasix drip at 10 cc/hour. 4. Vancomycin as per pharmacy, note the vancomycin trough closely, hold when necessary. 5. Workup pending for Plasma cell disease including MM, MGUS, Gammaglobulin disorders: close follow up, Hematoconcology consult as appropriate. 6. Rest of the treatment as per primay ICU team, and cardiology. Poor overall outcome likely due to complicated multiorgan failure. Thank you for the opportunity to consult on your patient. In case of any question feel free to reach out to the Nephrology team. Will follow the patient. Discussed with Nephrology attending Dr. Cheney. Addendum Patient seen and examined, plan discussed with resident. Agree with above, we will follow closely given staffing issues HD tomorrow/crrt unavailable here Plan discussed with: Other (primary team, RN ) Dietary Evaluation Review Comments: 1) EN Glucerna 1.2 Adolfo @ 65ml/hr, Start @ 30ml/hr increase 10ml/hr Q4H until goal is reached. water flush 50ml Q4H if allowed. 2) Consider TPN/PN if NPO>7 days 3) Advance diet as medically feasible 4) Continue current plan of care Expected Outcomes/Goals: Pt will meet >75% estimated needs Fu 2-3 days Critical Care Time (mins): 48 CC Plasma Assessment Blood Product Administration S: [id number] ELIZABETH STRAUSS Dec 23, 2024 14:35 YOBANI CHENEY MD Dec 23, 2024 20:15
[2024-12-23] MEDS: MICAFUNGIN SODIUM 100 MG in SODIUM CHL 0.9% 100 ML IV SCH (14:41)
[2024-12-24] VITALS (109 sets, daily range): BP systolic 11–143; BP diastolic 45–86; PULSE 76–100; RESP 13–30; TEMP 97.9–99.9; O2SAT 92–100
[2024-12-24] MEDS: ALBUMIN 25% 100 ML IV PRN (03:50)
[2024-12-24 03:56] LABS: Hemoglobin 7.9 g/dL (13.5-17.5); White Blood Cell 6.4 10^3/uL (4.4-10.8)
[2024-12-24 04:00] LABS: Hematocrit 23.3 % (41.0-53.0); Mean Corpuscular Hgb Conc. 33.9 g/dL (32.0-36.0); Mean Corpuscular Volume 91.6 fL (80.0-100.0); Platelet Count (auto) 49 10^3/uL (140-450); Red Blood Cells 2.55 10^6/uL (4.5-5.90)
[2024-12-24 04:06] LABS: Red Cell Distribution Width 22.5 % (11.8-14.3)
[2024-12-24 04:07] LABS: Basophils % (manual) 0 (0.0-2.0); Blast Cells 0; Eosinophils % (manual) 0 (0-7); Metamyelocytes % 0; Promyelocytes % 0; Reactive Lymphocytes 0
[2024-12-24 04:09] LABS: Anion Gap 17 (5-15); BUN/Creatinine Ratio 19.8 (10.0-20.0); Calcium 9.4 mg/dL (8.7-10.4); Carbon Dioxide 25 mmol/L (20-31); Chloride 102 mmol/L (98-107); Potassium 3.9 mmol/L (3.5-5.1); Sodium 144 mmol/L (136-145)
[2024-12-24 04:16] LABS: Alkaline Phosphatase 29 U/L (46-116); Aspartate Aminotransferase 213 U/L (13-40); Glucose 167 mg/dL (74-106)
[2024-12-24 04:17] LABS: Alanine Aminotransferase 308 U/L (7-40); Bilirubin, Total 1.3 mg/dL (0.2-1.0); Blood Urea Nitrogen 86 mg/dL (9-23); Total Protein 8.9 g/dL (5.7-8.2)
[2024-12-24 04:55] LABS: Anisocytosis Slight; Band Neutrophils % (manual) 20; Large Platelets FEW; Lymphocytes % (manual) 5 (10.0-50.0); Monocytes % (manual) 1 (0-12); Myelocytes % 2; Platelet Estimate Decreased; Rouleau Present; Target Cell FEW
[2024-12-24] MEDS: SODIUM CHL 0.9% 1000 ML BAG XX ONE (07:00)
--- NOTE | 2024-12-24 07:45 | DVH ---
EXAM: XR Chest, 1 View CLINICAL INDICATION: VENTILATED TECHNIQUE: Frontal view of the chest. COMPARISON: XY CHEST XRAY 1 VIEW on DOS: 12/23/24, XY CHEST XRAY 1 VIEW on DOS: 12/23/24, XY CHEST XR AY 1 VIEW on DOS: 12/22/24, XY CHEST XRAY 1 VIEW on DOS: 12/22/24, XY CHEST XRAY 1 VIEW on DOS: 12/21/24 FINDINGS: LUNGS AND PLEURAL SPACES: Congestion and edema, unchanged. No pneumothorax. HEART: Unremarkable. No cardiomegaly. MEDIASTINUM: Unremarkable. Normal mediastinal contour. BONES/JOINTS: Unremarkable. No acute fracture. TUBES, LINES AND DEVICES: Stable tubes and lines. OTHER FINDINGS: . IMPRESSION: Congestion and edema, unchanged.
[2024-12-24 07:56] LABS: Base Excess 0.5 mmol/L (-2.0-3.0)
[2024-12-24 08:07] LABS: Immunoglobulin A 3536 mg/dL (90-386); Immunoglobulin G, Serum 85 mg/dL (603-1613); Immunoglobulin M 7 mg/dL (20-172)
--- NOTE | 2024-12-24 09:30 | DVHPN2 ---
Subjective Intubated and sedated Reviewed: Care Plan, H&P, Labs, Medications Changes from previous H/P or p: No Changes General: Per HPI Objective Vitals Vital Signs Date Time Temp Pulse Resp B/P (MAP) Pulse Ox O2 Delivery O2 Flow Rate FiO2 12/24/24 08:30 99.0 94 24 120/65 (83) 98 210.2 143/82 (102) 12/24/24 08:12 40 12/24/24 08:00 Mechanical Ventilator+ Intake/Output Intake and Output 12/24/24 07:00 Intake Total 2383.154 ml Output Total 4675 ml Balance -2291.846 ml Intake Oral 150 ml IV Total 2233.154 ml Output Urine Total 4675 ml General Appearance: severe distress, Other (Intubated and sedated) HEENT: Atraumatic, PERRLA Lungs: Other (Mechanical ventilation. Rhonchi) Cardiovascular: Normal S1, Normal S2 Abdomen: Normal bowel sounds, Soft, No tenderness Back: Flank Tenderness, Midline Tenderness Musculoskeletal: Other (No motor movement) Neuro: Other (Unable to assess) Skin: Dry, Intact Psych/Mental Status: Other (Unable to assess) Medications Current Medications Medications Dose Ordered Sig/Teddy Route Start Time Stop Time Status Last Admin Dose Admin Sodium Chloride 10 ml Q8HR IV 12/21/24 22:00 12/24/24 05:42 10 ML Acetaminophen 650 mg Q6HP PRN PO 12/21/24 17:30 12/22/24 13:57 650 MG Ondansetron HCl 4 mg Q4HP PRN IV 12/21/24 17:30 Pantoprazole Sodium 40 mg BID IV 12/21/24 22:00 12/23/24 21:52 40 MG Diagnostic Test (Pha) 1 strip Q6HR 12/21/24 18:00 12/24/24 05:43 1 STRIP Insulin Human Regular Q6HR SC 12/21/24 18:00 12/24/24 05:44 2 UNITS Dextrose 50 ml UD PRN IV 12/21/24 17:45 12/22/24 07:59 50 ML Hydralazine HCl 10 mg Q6H PRN IV 12/21/24 17:45 Midazolam HCl 50 ml @ 1 mls/hr Q24H IV 12/21/24 17:45 12/24/24 05:28 7 MLS/HR Vancomycin HCl 0 ml @ 0 mls/hr UD IV 12/21/24 18:30 Fentanyl Citrate 250 ml @ 2.5 mls/hr Q24H IV 12/22/24 02:15 12/24/24 01:02 15 MLS/HR Phenylephrine HCl 80 mg/Sodium Chloride 250 ml @ 7.5 mls/hr Q24H IV 12/22/24 08:30 12/23/24 12:16 16.875 MLS/HR Norepinephrine Bitartrate 32 mg/ Sodium Chloride 250 ml @ 0.938 mls/ hr Q24H IV 12/22/24 08:30 12/23/24 18:39 14.063 MLS/HR Meropenem 50 ml @ 17 mls/hr Q12HR IV 12/22/24 11:00 12/23/24 21:56 17 MLS/HR Micafungin Sodium 100 mg/Sodium Chloride 100 ml @ 100 mls/hr DAILY IV 12/23/24 10:00 12/23/24 14:41 100 MLS/HR Albuterol 2.5 mg Q6HR NEB 12/22/24 12:00 12/24/24 06:27 2.5 MG Ipratropium [place] 0.5 mg Q6HR NEB 12/22/24 12:00 12/24/24 06:27 0.5 MG Acetylcysteine 100 mg Q6HR NEB 12/22/24 12:00 12/24/24 06:27 100 MG Hydrocortisone Sodium Succinate 100 mg Q12HR IV 12/22/24 22:00 12/23/24 21:52 100 MG Vasopressin 20 units/Sodium Chloride 100 ml @ 9 mls/hr Q11H7M IV 12/22/24 12:00 12/24/24 05:28 9 MLS/HR Furosemide 100 mg/ Sodium Chloride 110 ml @ 11 mls/hr Q10H IV 12/22/24 13:45 12/24/24 05:29 11 MLS/HR Zirconium Oxide 10 gm TID PO 12/23/24 14:00 12/25/24 06:01 12/24/24 06:10 10 GM Albumin Human 100 ml @ 100 mls/hr PRN PRN IV 12/24/24 03:15 12/24/24 03:50 100 MLS/HR Albumin Human 50 ml @ 100 mls/hr Q8H IV 12/24/24 08:15 12/25/24 00:44 Laboratory Results Laboratory Tests 12/24/24 03:00 Chemistry Test 12/23/24 16:00 12/24/24 03:00 Albumin Pending 2.0 g/dL (3.2-4.8) L Albumin/Globulin Ratio Pending Total Protein Pending 8.9 g/dL (5.7-8.2) H Calcium Level 9.4 mg/dL (8.7-10.4) Magnesium Level 2.0 mg/dL (1.6-2.6) LFT Test 12/24/24 03:00 Alanine Aminotransferase (ALT) 308 U/L (7-40) H Alkaline Phosphatase 29 U/L (46-116) L Aspartate Amino Transferase (AST) 213 U/L (13-40) H Total Bilirubin 1.3 mg/dL (0.2-1.0) H Urinalysis Test 12/21/24 12:07 Urine Color Light-yellow (Yellow) Urine Clarity Clear (Clear) Urine pH 5.5 (5.0-9.0) Urine Specific [place] 1.016 (1.001-1.035) Urine Protein 2+ (Negative) H Urine Ketones Negative (Negative) Urine Blood 1+ /uL (Negative) H Urine Nitrite Negative (Negative) Urine Bilirubin Negative (Negative) Urine Urobilinogen Normal mg/dL (Negative) Urine Leukocyte Esterase Negative /uL (Negative) Urine RBC 4 /hpf (0 - 3) Urine Microscopic WBC 2 /HPF (0-3) Urine Squamous Epithelial Cells None seen /hpf (<5) Urine Bacteria Few /hpf (None Seen) H Urine Creatinine 125.39 mg/dL (30.0-125.0) H Urine Sodium < 10 mmol/L (40-220) L Urine Glucose Normal mg/dL (Normal) Blood Gas Results Test 12/23/24 09:56 12/24/24 07:02 Arterial Blood pH 7.184 (7.350-7.450) 7.393 (7.350-7.450) FiO2 % 50.0 40.0 Microbiology Microbiology Date/Time Source Procedure Growth Status 12/22/24 17:11 Urine - [place] Urine Culture - Preliminary Resulted 12/22/24 11:30 Nose MRSA Screen - Final Complete 12/21/24 11:58 Blood Blood Culture - Preliminary Resulted Labs and/or images reviewed: Labs reviewed by me, Image(s) reviewed by me Assessment/Plan Assessment/Plan Impression: -acute hypoxic respiratory failure -multifocal pneumonia , community-acquired, probable Gram-positive/Gram-negative etiology -severe sepsis with shock -acute kidney injury, hemodynamically mediated. Probable underlying CKD -nicotine dependence -diabetes mellitus -primary hypertension -pancytopenia -NSTEMI type 2 -transaminitis -diabetes mellitus, periods of hypoglycemia Plan: Events: Patient received hemodialysis a.m.. Vasopressor therapy significantly decreased. Now only on norepinephrine. ABG now within normal limits. FiO2 at 40%. -continue Levophed to keep map greater than 65 mmHg -Continue hydrocortisone 100 mg IV b.i.d. -vent settings: A.c. 24, tidal volume 550, decrease PEEP to eight, FiO2 40% -antibiotic therapy: Vancomycin, meropenem, micafungin -PUD, DVT prophylaxis -consultations: Cardiology, Nephrology, Hematology -continue current ventilator settings -repeat labs, chest x-ray, ABG in a.m. Critical care time spent with patient discussing and formulating plan of care: 90 minutes. This does not include time spent performing procedures. This medical document was created using an electronic medical record system with [employer] dictation system. Although this document has been carefully reviewed, there may still be some phonetic and typographical errors. These areas are purely typographical due to imperfections of the software programs, and do not reflect any compromise in the patient's medical care. Plan discussed with: Patient, Other (RN) My Orders Orders - TESSIE MASON NP Procedure Category Date Status Time Chest Xray 1 View XY 12/23/24 Resulted 09:31 Abg W/ Co-Ox RT 12/23/24 Logged 11:00 * Wound Consult CONS 12/23/24 Transmitted Date of Service: Dec 24, 2024 Billing Provider: TESSIE MASON NP Common Visit Codes: 07916-[id number] CARE 30-74 MIN TESSIE MASON NP Dec 24, 2024 09:30
--- NOTE | 2024-12-24 10:17 | DVHPNRES ---
Progress Note Date Seen: Dec 24, 2024 Resident Creating Document: ELIZABETH STRAUSS RESIDENT Medical Necessity Reason Pt with a Central, PICC or Fol: Yes The following are medically ne: Leung Catheter Subjective Changes from previous H/P or p: No Changes Objective vital signs Vital Sign Date Time Temp Pulse Resp B/P (MAP) Pulse Ox O2 Delivery O2 Flow Rate FiO2 12/24/24 08:30 99.0 94 24 120/65 (83) 98 210.2 143/82 (102) 12/24/24 08:12 40 12/24/24 08:00 Mechanical Ventilator+ Total Intake and Output 12/23/24 12/23/24 12/24/24 15:00 23:00 07:00 Intake Total 1262.3 ml 560.477 ml 560.377 ml Output Total 1475 ml 3200 ml Balance 1262.3 ml -914.523 ml -2639.623 ml medications Current Medications Medications Dose Ordered Sig/Teddy Route Start Time Stop Time Status Last Admin Dose Admin Sodium Chloride 10 ml Q8HR IV 12/21/24 22:00 12/24/24 05:42 10 ML Acetaminophen 650 mg Q6HP PRN PO 12/21/24 17:30 12/22/24 13:57 650 MG Ondansetron HCl 4 mg Q4HP PRN IV 12/21/24 17:30 Pantoprazole Sodium 40 mg BID IV 12/21/24 22:00 12/23/24 21:52 40 MG Diagnostic Test (Pha) 1 strip Q6HR 12/21/24 18:00 12/24/24 05:43 1 STRIP Insulin Human Regular Q6HR SC 12/21/24 18:00 12/24/24 05:44 2 UNITS Dextrose 50 ml UD PRN IV 12/21/24 17:45 12/22/24 07:59 50 ML Midazolam HCl 50 ml @ 1 mls/hr Q24H IV 12/21/24 17:45 12/24/24 05:28 7 MLS/HR Vancomycin HCl 0 ml @ 0 mls/hr UD IV 12/21/24 18:30 Fentanyl Citrate 250 ml @ 2.5 mls/hr Q24H IV 12/22/24 02:15 12/24/24 01:02 15 MLS/HR Phenylephrine HCl 80 mg/Sodium Chloride 250 ml @ 7.5 mls/hr Q24H IV 12/22/24 08:30 12/23/24 12:16 16.875 MLS/HR Norepinephrine Bitartrate 32 mg/ Sodium Chloride 250 ml @ 0.938 mls/ hr Q24H IV 12/22/24 08:30 12/23/24 18:39 14.063 MLS/HR Meropenem 50 ml @ 17 mls/hr Q12HR IV 12/22/24 11:00 12/23/24 21:56 17 MLS/HR Micafungin Sodium 100 mg/Sodium Chloride 100 ml @ 100 mls/hr DAILY IV 12/23/24 10:00 12/23/24 14:41 100 MLS/HR Albuterol 2.5 mg Q6HR NEB 12/22/24 12:00 12/24/24 06:27 2.5 MG Ipratropium [place] 0.5 mg Q6HR NEB 12/22/24 12:00 12/24/24 06:27 0.5 MG Acetylcysteine 100 mg Q6HR NEB 12/22/24 12:00 12/24/24 06:27 100 MG Hydrocortisone Sodium Succinate 100 mg Q12HR IV 12/22/24 22:00 12/23/24 21:52 100 MG Vasopressin 20 units/Sodium Chloride 100 ml @ 9 mls/hr Q11H7M IV 12/22/24 12:00 12/24/24 05:28 9 MLS/HR Furosemide 100 mg/ Sodium Chloride 110 ml @ 11 mls/hr Q10H IV 12/22/24 13:45 12/24/24 05:29 11 MLS/HR Zirconium Oxide 10 gm TID PO 12/23/24 14:00 12/25/24 06:01 12/24/24 06:10 10 GM Albumin Human 100 ml @ 100 mls/hr PRN PRN IV 12/24/24 03:15 12/24/24 03:50 100 MLS/HR Albumin Human 50 ml @ 100 mls/hr Q8H IV 12/24/24 08:15 12/25/24 00:44 Enteral Nutritional Formula 1,000 ml 30ML/HR GT 12/24/24 09:30 UNV Examination General Appearance: Endotracheally intubated. Chemically sedated. On tipple vasopressor. Head Exam: Normal inspection Neck Exam: Normal inspection. Normal alignment, left nguyen, right cvc Pulmonary/Respiratory: Diminished bilateral breath sounds. Endotracheally intubated, crackles b/l Cardiovascular/Chest: Regular rate and rhythm. S1, S2. No murmurs. + JVD. Peripheral Pulses: 2+ Radial (R). 2+ Radial (L). 2+ Pedal (R). 2+ Pedal (L) Abdominal Exam: Normal bowel sounds. Soft. Ankle Exam: Negative ankle edema Lower extremities: Negative lower extremity edema Neuro/Mental Status: Chemically sedated. Withdrawn RASS -3 Thoughts/Psych: Unable to assess at this time Appearance: looks sick Skin Exam: Normal inspection. Normal color. warm Examination: GENERAL:Abnormal, LUNGS:Abnormal, MSK:Abnormal, NEURO:Abnormal laboratory and microbiology Laboratory Tests 12/24/24 03:00 Test 12/24/24 03:00 Range/Units Serum Glucose 167 H 74-106 mg/dL Microbiology Date/Time Source Procedure Growth Status 12/22/24 17:11 Urine - [place] Urine Culture - Preliminary Resulted 12/22/24 11:30 Nose MRSA Screen - Final Complete 12/21/24 11:58 Blood Blood Culture - Preliminary Resulted Labs and/or images reviewed: Labs reviewed by me, Image(s) reviewed by me Problem List/Assessment/Plan Problem List/Assessment/Plan Mr. De Los Santos, a 59-year-old man originally from [place], came from a living facility with a history of insulin-dependent diabetes mellitus and essential hypertension, and neuropathy, but limited surgical, family, and social histories was brought to the respiratory failure, CAP multifocal, severe sepsis, gm +ve bactermia, CHF execerbation and acute renal failure needing intubation, sedation, vasopressor, and initiation of HD with nguyen. The family lives in [place] with and 7 children, consented over phone for hemodialysis. Assessment # RYAN due to VMN. FeNa: 0.2% prerena # Fluid overloaded, Lasix drip diuretic challenge 10cc/hour improved # possible paraproteinemia, Melvina:Lambda > 10 likely MM. workup pending. # Worsening Anion-gap metabolic acidosis: Primary respiratory acidosis with secondary metabolic acidosis and additional metabolic alkalosis. 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 #I/M=2400-1140= ((-2175)) S/p HD this am 1L OUT. +ve balance with lasix drip 10 cc / hour. #Cr=2.73>3.87>5.41>5.71>4.35 (unknown baseline) #BUN=45>54>71>71>86 #GFR=26>17>11>11>15 #Diet=Nepro started Plan: # S/p HD with 1 L UF, Next gentle HD within next 48 hours as needed. daily BMP and correct electrolytes. PRN albumin support and Epo s/c post HD. # Use quad concentration of pressors, limit fluid intake, and continue lasix drip at 10 cc/hour given increased U/O. # Close I/O, keep on leung's, keep MAP>65, avoid antihypertensives, avoid nephrotoxics in ICU level of care, Vancomycin as per pharmacy noting trough closely, hold when necessary. # Workup pending for paraprotenimeia, MM high in differential, Hematoconcology input appreciated. # Rest of the treatment as per primay team. Poor overall prognosis likely due to complicated multiorgan failure. Thank you for the opportunity to consult on your patient. In case of any question feel free to reach out to the Nephrology team. Will follow the patient. Discussed with Nephrology attending Dr. Cheney. Plan discussed with: Other (primary RN and team. ) Dietary Evaluation Review Comments: 1) EN Glucerna 1.2 Adolfo @ 65ml/hr, Start @ 30ml/hr increase 10ml/hr Q4H until goal is reached. water flush 50ml Q4H if allowed. 2) Consider TPN/PN if NPO>7 days 3) Advance diet as medically feasible 4) Continue current plan of care Expected Outcomes/Goals: Pt will meet >75% estimated needs Fu 2-3 days Critical Care Time (mins): 39 CC Plasma Assessment Blood Product Administration S: [id number] CARLOS A,[facility] Dec 24, 2024 10:17 YOBANI CHENEY MD Dec 24, 2024 14:54
--- NOTE | 2024-12-24 10:28 | DVHPN2 ---
Consult Progress Note Date Seen: Dec 24, 2024 Subjective Other Systems: No overnight cardiac events reported Objective vital signs Vital Sign Date Time Temp Pulse Resp B/P (MAP) Pulse Ox O2 Delivery O2 Flow Rate FiO2 12/24/24 08:30 99.0 94 24 120/65 (83) 98 210.2 143/82 (102) 12/24/24 08:12 40 12/24/24 08:00 Mechanical Ventilator+ Total Intake and Output 12/23/24 12/23/24 12/24/24 15:00 23:00 07:00 Intake Total 1262.3 ml 560.477 ml 560.377 ml Output Total 1475 ml 3200 ml Balance 1262.3 ml -914.523 ml -2639.623 ml medications Current Medications Medications Dose Ordered Sig/Teddy Route Start Time Stop Time Status Last Admin Dose Admin Sodium Chloride 10 ml Q8HR IV 12/21/24 22:00 12/24/24 05:42 10 ML Acetaminophen 650 mg Q6HP PRN PO 12/21/24 17:30 12/22/24 13:57 650 MG Ondansetron HCl 4 mg Q4HP PRN IV 12/21/24 17:30 Pantoprazole Sodium 40 mg BID IV 12/21/24 22:00 12/23/24 21:52 40 MG Diagnostic Test (Pha) 1 strip Q6HR 12/21/24 18:00 12/24/24 05:43 1 STRIP Insulin Human Regular Q6HR SC 12/21/24 18:00 12/24/24 05:44 2 UNITS Dextrose 50 ml UD PRN IV 12/21/24 17:45 12/22/24 07:59 50 ML Midazolam HCl 50 ml @ 1 mls/hr Q24H IV 12/21/24 17:45 12/24/24 05:28 7 MLS/HR Vancomycin HCl 0 ml @ 0 mls/hr UD IV 12/21/24 18:30 Fentanyl Citrate 250 ml @ 2.5 mls/hr Q24H IV 12/22/24 02:15 12/24/24 01:02 15 MLS/HR Phenylephrine HCl 80 mg/Sodium Chloride 250 ml @ 7.5 mls/hr Q24H IV 12/22/24 08:30 12/23/24 12:16 16.875 MLS/HR Norepinephrine Bitartrate 32 mg/ Sodium Chloride 250 ml @ 0.938 mls/ hr Q24H IV 12/22/24 08:30 12/23/24 18:39 14.063 MLS/HR Meropenem 50 ml @ 17 mls/hr Q12HR IV 12/22/24 11:00 12/23/24 21:56 17 MLS/HR Micafungin Sodium 100 mg/Sodium Chloride 100 ml @ 100 mls/hr DAILY IV 12/23/24 10:00 12/23/24 14:41 100 MLS/HR Albuterol 2.5 mg Q6HR NEB 12/22/24 12:00 12/24/24 06:27 2.5 MG Ipratropium [place] 0.5 mg Q6HR NEB 12/22/24 12:00 12/24/24 06:27 0.5 MG Acetylcysteine 100 mg Q6HR NEB 12/22/24 12:00 12/24/24 06:27 100 MG Hydrocortisone Sodium Succinate 100 mg Q12HR IV 12/22/24 22:00 12/23/24 21:52 100 MG Vasopressin 20 units/Sodium Chloride 100 ml @ 9 mls/hr Q11H7M IV 12/22/24 12:00 12/24/24 05:28 9 MLS/HR Furosemide 100 mg/ Sodium Chloride 110 ml @ 11 mls/hr Q10H IV 12/22/24 13:45 12/24/24 05:29 11 MLS/HR Zirconium Oxide 10 gm TID PO 12/23/24 14:00 12/25/24 06:01 12/24/24 06:10 10 GM Albumin Human 100 ml @ 100 mls/hr PRN PRN IV 12/24/24 03:15 12/24/24 03:50 100 MLS/HR Albumin Human 50 ml @ 100 mls/hr Q8H IV 12/24/24 08:15 12/25/24 00:44 Enteral Nutritional Formula 1,000 ml 30ML/HR GT 12/24/24 09:30 UNV Examination: GENERAL:Abnormal, LUNGS:Abnormal (Endotracehally intubated with 40% FiO2), CVS:Abnormal (On single low-dose vasopressor and lasix drip. NSR), NEURO:Abnormal (Chemically sedated) laboratory and microbiology Laboratory Tests 12/24/24 03:00 Test 12/24/24 03:00 Range/Units Serum Glucose 167 H 74-106 mg/dL Problem List/Assessment/Plan Problem List/Assessment/Plan Septic shock with multifocal pneumonia Acute hypoxic respiratory failure Acute david-cardiac syndrome type III NSTEMI, likely type 2 secondary to above Newly diagnosed HFmrEF with LVEF at 40-45% Hx of hypertension Insulin-dependent diabetes mellitus Acute anemia s/p PRBCs x 2 units, ?GI bleed RYAN with likely underlined CKD on HD Thrombocytopenia Plan/Recommendation (Dr. Cortez) Transthoracic echocardiogram revealed EF 40-45% RVSP 45 mmHg. Continue vasopressor, lasix drip, and albumin infusion for hemodynamic support. Continue ABX therapy per primary care team. Obtain FOBT and monitor H&H/platelet count closely. Continue respiratory consultation and recommendations. Likely NSTEMI Type II given sepsis, RYAN, and hemodynamic derangement. Further orders per clinical course. Thank you for allowing us to participate in this patient's care. Please call if you have any questions or concerns. Critical Care Time: 30 min. This medical document was created using an electronic medical record system with voice recognition software and computerized dictation system. Although this document has been carefully reviewed, there might still be some phonetic and typographical errors. Occasional wrong-word or ``sound-alike substitutions may have occurred due to the inherent limitations of voice recognition software. These areas are purely typographical due to imperfections of the software programs and do not reflect any compromise in the patient's medical care. Please read the chart carefully and recognize, using context, where these substitutions have occurred. Plan discussed with: Other Dietary Evaluation Review Comments: 1) EN Glucerna 1.2 Adolfo @ 65ml/hr, Start @ 30ml/hr increase 10ml/hr Q4H until goal is reached. water flush 50ml Q4H if allowed. 2) Consider TPN/PN if NPO>7 days 3) Advance diet as medically feasible 4) Continue current plan of care Expected Outcomes/Goals: Pt will meet >75% estimated needs Fu 2-3 days CC Plasma Assessment Blood Product Administration S: 150 Date of Service: Dec 24, 2024 Billing Provider: DEBBIE SOL Cardiology Common Codes: 62413-BANDLCWO CARE 30-74 MIN DEBBIE SOL Dec 24, 2024 10:28
[2024-12-24] MEDS: ALBUMIN 25% 50 ML IV SCH (10:44)
[2024-12-24 12:07] LABS: Kappa Lite Chain Free Serum 827.4 mg/L (3.3-19.4)
--- NOTE | 2024-12-24 12:48 | ECG ---
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
[2024-12-24] MEDS: [UNRECOGNIZED DRUG - OTHER] IV SCH (14:00)
[2024-12-24] MEDS: VANCOMYCIN 1GM/250ML KIT 250 ML IV ONE (15:19)
[2024-12-24 15:50] LABS: Chloride 102 mmol/L (98-107); Sodium 144 mmol/L (136-145)
[2024-12-24 15:51] LABS: Anion Gap 13 (5-15); Carbon Dioxide 29 mmol/L (20-31)
[2024-12-24 15:52] LABS: Calcium 9.4 mg/dL (8.7-10.4)
[2024-12-24 15:57] LABS: BUN/Creatinine Ratio 24.3 (10.0-20.0)
[2024-12-24 16:04] LABS: Blood Urea Nitrogen 69 mg/dL (9-23); Glucose 131 mg/dL (74-106); Potassium 3.5 mmol/L (3.5-5.1)
[2024-12-24] MEDS: Nepro With Carb Steady 1 Liter Bottle GT SCH (18:30)
[2024-12-24] MEDS: EPOETIN ALFA-EPBX 4,000 UNIT/ML VIAL SC ONE (21:56)
[2024-12-25] VITALS (109 sets, daily range): BP systolic 75–167; BP diastolic 42–85; PULSE 80–93; RESP 17–27; TEMP 98.6–100; O2SAT 87–100
[2024-12-25 04:06] LABS: Hemoglobin 7.9 g/dL (13.5-17.5); Mean Corpuscular Volume 91.5 fL (80.0-100.0)
[2024-12-25 04:07] LABS: Alkaline Phosphatase 47 U/L (46-116); Anion Gap 14 (5-15); BUN/Creatinine Ratio 33.3 (10.0-20.0); Calcium 10.2 mg/dL (8.7-10.4); Carbon Dioxide 31 mmol/L (20-31); Chloride 102 mmol/L (98-107); Hematocrit 23.4 % (41.0-53.0); Magnesium 2.1 mg/dL (1.6-2.6); Mean Corpuscular Hemoglobin 30.9 pg (28.0-32.0); Mean Corpuscular Hgb Conc. 33.8 g/dL (32.0-36.0); Platelet Count (auto) 52 10^3/uL (140-450); Red Blood Cells 2.55 10^6/uL (4.5-5.90); Red Cell Distribution Width 22.9 % (11.8-14.3); White Blood Cell 9.1 10^3/uL (4.4-10.8)
[2024-12-25 04:08] LABS: Phosphorus 3.9 mg/dL (2.4-5.1)
[2024-12-25 04:19] LABS: Alanine Aminotransferase 232 U/L (7-40); Albumin 2.2 g/dL (3.2-4.8); Aspartate Aminotransferase 134 U/L (13-40); Bilirubin, Total 1.8 mg/dL (0.2-1.0); Glucose 159 mg/dL (74-106); Potassium 3.1 mmol/L (3.5-5.1); Sodium 147 mmol/L (136-145); Total Protein 8.4 g/dL (5.7-8.2)
[2024-12-25 04:22] LABS: Blood Urea Nitrogen 80 mg/dL (9-23)
[2024-12-25 04:23] LABS: Basophils % (manual) 0 (0.0-2.0); Blast Cells 0; Eosinophils % (manual) 0 (0-7); Myelocytes % 0; Promyelocytes % 0; Reactive Lymphocytes 0
--- NOTE | 2024-12-25 04:49 | DVH ---
CHEST RADIOGRAPH Indication: RESPIRATORY FAILURE Technique: Single frontal view of the chest was obtained Comparison: XY CHEST PORTABLE on DOS: 12/24/24 FINDINGS: Lines and Tubes: Right central venous catheter terminates in the right atrium. Left central venous c atheter terminates in the right atrium. Endotracheal tube terminates 3.7 cm above the karina. The ent lazara tube courses below the left hemidiaphragm and the tip extends outside the field of view. Lungs: Bilateral airspace opacities similar to prior study. Pleura: No effusion. No pneumothorax. Cardiomediastinal contours: Unremarkable Bones: No acute osseous abnormality. IMPRESSION: 1. Bilateral opacities which may reflect edema similar to prior study. 2. Stable cardiomegaly.
[2024-12-25 05:34] LABS: Anisocytosis Slight; Band Neutrophils % (manual) 10; Lymphocytes % (manual) 4 (10.0-50.0); Metamyelocytes % 1; Monocytes % (manual) 1 (0-12)
[2024-12-25 05:35] LABS: Rouleau Present; Target Cell FEW
[2024-12-25 05:36] LABS: Platelet Estimate Decreased
[2024-12-25] MEDS: POTASSIUM CHL 20MEQ/100ML 100 ML IV ONE (05:49)
[2024-12-25] MEDS: POTASSIUM CHL 20MEQ/50ML 50 ML IV ONE (05:49)
[2024-12-25 06:07] LABS: Alpha-1-Globulin 0.4 g/dL (0.0-0.4); Alpha-2-Globulin 0.8 g/dL (0.4-1.0); Gamma Globulin 0.3 g/dL (0.4-1.8); Globulin Total 6.7 g/dL (2.2-3.9); Protein Total Serum 8.7 g/dL (6.0-8.5)
[2024-12-25 06:48] LABS: Base Excess 6.2 mmol/L (-2.0-3.0)
[2024-12-25 08:07] LABS: Rheumatoid Arthritis Factor 11.3 IU/mL (<14.0)
--- NOTE | 2024-12-25 09:54 | DVHPNRES ---
Progress Note Date Seen: Dec 25, 2024 Resident Creating Document: ELIZABETH STRAUSS RESIDENT Medical Necessity Reason Pt with a Central, PICC or Fol: Yes The following are medically ne: Leung Catheter Objective vital signs Vital Sign Date Time Temp Pulse Resp B/P (MAP) Pulse Ox O2 Delivery O2 Flow Rate FiO2 12/25/24 09:10 130/53 12/25/24 08:30 99.1 89 24 93 210.4 12/25/24 08:00 Mechanical Ventilator+ 30 30 Total Intake and Output 12/24/24 12/24/24 12/25/24 15:00 23:00 07:00 Intake Total 509.853 ml 393.480 ml 763.941 ml Output Total 1500 ml 2100 ml Balance 509.853 ml -1106.520 ml -1336.059 ml medications Current Medications Medications Dose Ordered Sig/Teddy Route Start Time Stop Time Status Last Admin Dose Admin Sodium Chloride 10 ml Q8HR IV 12/21/24 22:00 12/25/24 05:51 10 ML Acetaminophen 650 mg Q6HP PRN PO 12/21/24 17:30 12/22/24 13:57 650 MG Ondansetron HCl 4 mg Q4HP PRN IV 12/21/24 17:30 Pantoprazole Sodium 40 mg BID IV 12/21/24 22:00 12/25/24 09:10 40 MG Diagnostic Test (Pha) 1 strip Q6HR 12/21/24 18:00 12/25/24 05:50 1 STRIP Insulin Human Regular Q6HR SC 12/21/24 18:00 12/25/24 05:50 2 UNITS Dextrose 50 ml UD PRN IV 12/21/24 17:45 12/22/24 07:59 50 ML Midazolam HCl 50 ml @ 1 mls/hr Q24H IV 12/21/24 17:45 12/25/24 09:10 13 MLS/HR Vancomycin HCl 0 ml @ 0 mls/hr UD IV 12/21/24 18:30 Fentanyl Citrate 250 ml @ 2.5 mls/hr Q24H IV 12/22/24 02:15 12/25/24 02:58 30 MLS/HR Phenylephrine HCl 80 mg/Sodium Chloride 250 ml @ 7.5 mls/hr Q24H IV 12/22/24 08:30 12/23/24 12:16 16.875 MLS/HR Norepinephrine Bitartrate 32 mg/ Sodium Chloride 250 ml @ 0.938 mls/ hr Q24H IV 12/22/24 08:30 12/24/24 23:42 0.938 MLS/HR Meropenem 50 ml @ 17 mls/hr Q12HR IV 12/22/24 11:00 12/24/24 21:58 17 MLS/HR Micafungin Sodium 100 mg/Sodium Chloride 100 ml @ 100 mls/hr DAILY IV 12/23/24 10:00 12/25/24 09:11 100 MLS/HR Albuterol 2.5 mg Q6HR NEB 12/22/24 12:00 12/25/24 06:42 2.5 MG Ipratropium [place] 0.5 mg Q6HR NEB 12/22/24 12:00 12/25/24 06:42 0.5 MG Acetylcysteine 100 mg Q6HR NEB 12/22/24 12:00 12/25/24 06:43 100 MG Hydrocortisone Sodium Succinate 100 mg Q12HR IV 12/22/24 22:00 12/25/24 09:10 100 MG Furosemide 100 mg/ Sodium Chloride 110 ml @ 11 mls/hr Q10H IV 12/22/24 13:45 12/25/24 01:15 11 MLS/HR Albumin Human 100 ml @ 100 mls/hr PRN PRN IV 12/24/24 03:15 12/24/24 03:50 100 MLS/HR Enteral Nutritional Formula 1,000 ml 30ML/HR GT 12/24/24 09:30 12/24/24 18:30 1,000 ML Examination General Appearance: Endotracheally intubated. Chemically sedated. Off pressors Head Exam: Normal inspection Neck Exam: Normal inspection. Normal alignment, left gutierrez, right cvc Pulmonary/Respiratory: Diminished bilateral breath sounds. Endotracheally intubated, crackles b/l Cardiovascular/Chest: Regular rate and rhythm. S1, S2. No murmurs. Peripheral Pulses: 2+ Radial (R). 2+ Radial (L). 2+ Pedal (R). 2+ Pedal (L) Abdominal Exam: Normal bowel sounds. Soft. Ankle Exam: Negative ankle edema Lower extremities: Negative lower extremity edema Neuro/Mental Status: Chemically sedated. Withdrawn RASS -3 Thoughts/Psych: Unable to assess at this time Appearance: looks sick Skin Exam: Normal inspection. Normal color. warm IVC less congested laboratory and microbiology Laboratory Tests 12/25/24 03:15 Test 12/25/24 03:15 Range/Units Serum Glucose 159 H 74-106 mg/dL Microbiology Date/Time Source Procedure Growth Status 12/22/24 17:11 Urine - [place] Urine Culture - Preliminary Resulted 12/22/24 11:30 Nose MRSA Screen - Final Complete 12/21/24 11:58 Blood Blood Culture - Preliminary Resulted Labs and/or images reviewed: Labs reviewed by me, Image(s) reviewed by me Problem List/Assessment/Plan Problem List/Assessment/Plan Mr. De Los Santos, a 59-year-old man originally from [place], came from a living facility with a history of insulin-dependent diabetes mellitus and essential hypertension, and neuropathy, but limited surgical, family, and social histories was brought to the respiratory failure, CAP multifocal, severe sepsis, gm +ve bacteremia, CHF exacerbation and acute renal failure needing intubation, sedation, vasopressor, and initiation of HD with Gutierrez. The family lives in [place] with and 7 children, consented over phone for hemodialysis. S/p 1 episode of HD s/p 10 cc/hr Lasix drip diuresed well overall improving. Assessment: # RYAN due to VMN. FeNa: 0.2% prerenal # Fluid overloaded, Lasix drip diuretic challenge 10cc/hour improved # possible paraproteinemia, [place]:Lambda > 10 likely MM. workup pending. # Worsening Anion-gap metabolic acidosis: Primary respiratory acidosis with secondary metabolic acidosis and additional metabolic alkalosis. 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 Findings: #Na 147, K 3.1, free water deficit 2.7 L #Volume Status: hypotensive, but much less fluid overloaded #I/K=[id number] ((-1999)) S/p HD this am 1L OUT. #Cr=2.73>3.87>5.41>5.71>4.35>2.48>2.40 (unknown baseline) #BUN=45>54>71>71>86>69>80 #GFR=26>17>11>11>15>25>30 #Diet= Nepro started, continue free water NG tube Plan: # Hold lasix drip, bumex 2mg bid iv for now, replenish k, daily labs. hold HD # Close I/O, keep on leung's, keep MAP>65, avoid antihypertensives, avoid nephrotoxics in ICU level of care, Vancomycin as per pharmacy noting trough closely, hold when necessary. # Rest of the treatment as per primay team and hematooncology. Guarded prognosis due to complicated medical conditions Thank you for the opportunity to consult on your patient. In case of any question feel free to reach out to the Nephrology team. Will follow the patient. Discussed with Nephrology attending Dr. Cheney. Addendum Patient seen and examined, plan discussed with resident. Agree with above, we will follow closely We will hold HD as urine output has significantly gotten better Hold Lasix drip switch to Bumex IV b.i.d. Monitor BUDDHIST MONK needs daily patient has temporary Gutierrez catheter Status post dialysis once so far Vasopressors have been off today Plan discussed with: Patient, Other Dietary Evaluation Review Comments: 1) EN Glucerna 1.2 Adolfo @ 65ml/hr, Start @ 30ml/hr increase 10ml/hr Q4H until goal is reached. water flush 50ml Q4H if allowed. 2) Consider TPN/PN if NPO>7 days 3) Advance diet as medically feasible 4) Continue current plan of care Expected Outcomes/Goals: Pt will meet >75% estimated needs Fu 2-3 days Critical Care Time (mins): 45 CC Plasma Assessment Blood Product Administration S: 1505 ELIZABETH STRAUSS RESIDENT Dec 25, 2024 09:54 YOBANI CHENEY MD Dec 25, 2024 16:15
--- NOTE | 2024-12-25 09:55 | DVHPN2 ---
Subjective Intubated and sedated Reviewed: Care Plan, H&P, Labs, Medications Changes from previous H/P or p: No Changes General: Per HPI Objective Vitals Vital Signs Date Time Temp Pulse Resp B/P (MAP) Pulse Ox O2 Delivery O2 Flow Rate FiO2 12/25/24 09:10 130/53 12/25/24 08:30 99.1 89 24 93 210.4 12/25/24 08:00 Mechanical Ventilator+ 30 30 Intake/Output Intake and Output 12/25/24 07:00 Intake Total 1667.274 ml Output Total 3600 ml Balance -1932.726 ml Intake Oral 220 ml IV Total 1447.274 ml Output Urine Total 3600 ml General Appearance: moderate distress, Other (Intubated and sedated) HEENT: Atraumatic, PERRLA Lungs: Other (Mechanical ventilation. Rhonchi) Cardiovascular: Normal S1, Normal S2 Abdomen: Normal bowel sounds, Soft, No tenderness Back: Flank Tenderness, Midline Tenderness Musculoskeletal: Other (No motor movement) Neuro: Other (Unable to assess) Skin: Dry, Intact, Wounds (See nurse notes and pictures) Psych/Mental Status: Other (Unable to assess) Medications Current Medications Medications Dose Ordered Sig/Teddy Route Start Time Stop Time Status Last Admin Dose Admin Sodium Chloride 10 ml Q8HR IV 12/21/24 22:00 12/25/24 05:51 10 ML Acetaminophen 650 mg Q6HP PRN PO 12/21/24 17:30 12/22/24 13:57 650 MG Ondansetron HCl 4 mg Q4HP PRN IV 12/21/24 17:30 Pantoprazole Sodium 40 mg BID IV 12/21/24 22:00 12/25/24 09:10 40 MG Diagnostic Test (Pha) 1 strip Q6HR 12/21/24 18:00 12/25/24 05:50 1 STRIP Insulin Human Regular Q6HR SC 12/21/24 18:00 12/25/24 05:50 2 UNITS Dextrose 50 ml UD PRN IV 12/21/24 17:45 12/22/24 07:59 50 ML Midazolam HCl 50 ml @ 1 mls/hr Q24H IV 12/21/24 17:45 12/25/24 09:10 13 MLS/HR Vancomycin HCl 0 ml @ 0 mls/hr UD IV 12/21/24 18:30 Fentanyl Citrate 250 ml @ 2.5 mls/hr Q24H IV 12/22/24 02:15 12/25/24 02:58 30 MLS/HR Phenylephrine HCl 80 mg/Sodium Chloride 250 ml @ 7.5 mls/hr Q24H IV 12/22/24 08:30 12/23/24 12:16 16.875 MLS/HR Norepinephrine Bitartrate 32 mg/ Sodium Chloride 250 ml @ 0.938 mls/ hr Q24H IV 12/22/24 08:30 12/24/24 23:42 0.938 MLS/HR Meropenem 50 ml @ 17 mls/hr Q12HR IV 12/22/24 11:00 12/24/24 21:58 17 MLS/HR Micafungin Sodium 100 mg/Sodium Chloride 100 ml @ 100 mls/hr DAILY IV 12/23/24 10:00 12/25/24 09:11 100 MLS/HR Albuterol 2.5 mg Q6HR NEB 12/22/24 12:00 12/25/24 06:42 2.5 MG Ipratropium [place] 0.5 mg Q6HR NEB 12/22/24 12:00 12/25/24 06:42 0.5 MG Acetylcysteine 100 mg Q6HR NEB 12/22/24 12:00 12/25/24 06:43 100 MG Hydrocortisone Sodium Succinate 100 mg Q12HR IV 12/22/24 22:00 12/25/24 09:10 100 MG Furosemide 100 mg/ Sodium Chloride 110 ml @ 11 mls/hr Q10H IV 12/22/24 13:45 12/25/24 01:15 11 MLS/HR Albumin Human 100 ml @ 100 mls/hr PRN PRN IV 12/24/24 03:15 12/24/24 03:50 100 MLS/HR Enteral Nutritional Formula 1,000 ml 30ML/HR GT 12/24/24 09:30 12/24/24 18:30 1,000 ML Laboratory Results Laboratory Tests 12/25/24 03:15 Chemistry Test 12/24/24 15:30 12/25/24 03:15 Calcium Level 9.4 mg/dL (8.7-10.4) 10.2 mg/dL (8.7-10.4) Albumin 2.2 g/dL (3.2-4.8) L Magnesium Level 2.1 mg/dL (1.6-2.6) Phosphorus Level 3.9 mg/dL (2.4-5.1) Total Protein 8.4 g/dL (5.7-8.2) H LFT Test 12/25/24 03:15 Alanine Aminotransferase (ALT) 232 U/L (7-40) H Alkaline Phosphatase 47 U/L (46-116) Aspartate Amino Transferase (AST) 134 U/L (13-40) H Total Bilirubin 1.8 mg/dL (0.2-1.0) H Urinalysis Test 12/21/24 12:07 Urine Color Light-yellow (Yellow) Urine Clarity Clear (Clear) Urine pH 5.5 (5.0-9.0) Urine Specific [place] 1.016 (1.001-1.035) Urine Protein 2+ (Negative) H Urine Ketones Negative (Negative) Urine Blood 1+ /uL (Negative) H Urine Nitrite Negative (Negative) Urine Bilirubin Negative (Negative) Urine Urobilinogen Normal mg/dL (Negative) Urine Leukocyte Esterase Negative /uL (Negative) Urine RBC 4 /hpf (0 - 3) Urine Microscopic WBC 2 /HPF (0-3) Urine Squamous Epithelial Cells None seen /hpf (<5) Urine Bacteria Few /hpf (None Seen) H Urine Creatinine 125.39 mg/dL (30.0-125.0) H Urine Sodium < 10 mmol/L (40-220) L Urine Glucose Normal mg/dL (Normal) Blood Gas Results Test 12/25/24 06:42 Arterial Blood pH 7.438 (7.350-7.450) FiO2 % 30.0 Microbiology Microbiology Date/Time Source Procedure Growth Status 12/22/24 17:11 Urine - [place] Urine Culture - Preliminary Resulted 12/22/24 11:30 Nose MRSA Screen - Final Complete 12/21/24 11:58 Blood Blood Culture - Preliminary Resulted Labs and/or images reviewed: Labs reviewed by me, Image(s) reviewed by me Assessment/Plan Assessment/Plan Impression: -acute hypoxic respiratory failure -multifocal pneumonia , community-acquired, probable Gram-positive/Gram-negative etiology -severe sepsis with shock -acute kidney injury, hemodynamically mediated. Probable underlying CKD -nicotine dependence -diabetes mellitus -primary hypertension -pancytopenia -NSTEMI type 2 -transaminitis -diabetes mellitus, periods of hypoglycemia Plan: Events: Patient now hypokalemic. Increased urine output. Vasopressor therapy now only on minimal norepinephrine drip. Serum and urine immunofixation currently pending. We will discuss with Hematology/Oncology bone marrow biopsy. -continue Levophed to keep map greater than 65 mmHg -Continue hydrocortisone 100 mg IV b.i.d. -vent settings: A.c. 24, tidal volume 550, decrease PEEP to eight, FiO2 40% -antibiotic therapy: Vancomycin, meropenem, micafungin -PUD, DVT prophylaxis -consultations: Cardiology, Nephrology, Hematology -continue current ventilator settings -repeat labs, chest x-ray, ABG in a.m. Critical care time spent with patient discussing and formulating plan of care: 90 minutes. This does not include time spent performing procedures. This medical document was created using an electronic medical record system with Jooce dictation system. Although this document has been carefully reviewed, there may still be some phonetic and typographical errors. These areas are purely typographical due to imperfections of the software programs, and do not reflect any compromise in the patient's medical care. Plan discussed with: Patient, Other (RN) My Orders Orders - TESSIE MASON NP Procedure Category Date Status Time Vasopressin-Sodium PHA 12/24/24 In Process Chloride (Vasopressin 14:00 Apply Barrier Cream RADHA 12/24/24 In Process 10:00 Date of Service: Dec 25, 2024 Billing Provider: TESSIE MASON NP Common Visit Codes: 45014-[id number] CARE 30-74 MIN TESSIE MASON NP Dec 25, 2024 09:55
[2024-12-25 10:23] LABS: Hepatitis B Surface Antibody Negative (Negative); Hepatitis B Surface Antigen Negative (Negative); Hepatitis C Antibody Negative (Negative)
[2024-12-25 10:24] LABS: Hepatitis A Ab IgM Negative; Hepatitis B Core IgM Negative (Negative); Hepatitis B Surface Antigen Negative (Negative); Hepatitis C Antibody Negative (Negative)
--- NOTE | 2024-12-25 10:53 | ECG ---
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
[2024-12-25 16:07] LABS: Beta-2-Microglobulin 17.5 mg/L (0.6-2.4)
[2024-12-25] MEDS: FREE WATER GT SCH (18:00)
[2024-12-25] MEDS: BUMETANIDE 2.5mg/10ml (0.25 mg/ml) INJ IV SCH (18:13)
[2024-12-26] VITALS (106 sets, daily range): BP systolic 109–194; BP diastolic 43–96; PULSE 68–104; RESP 11–27; TEMP 98.1–100.2; O2SAT 90–100
[2024-12-26 03:42] LABS: Hematocrit 23.9 % (41.0-53.0); Hemoglobin 8.2 g/dL (13.5-17.5); Mean Corpuscular Hemoglobin 31.4 pg (28.0-32.0); Mean Corpuscular Hgb Conc. 34.3 g/dL (32.0-36.0); Mean Corpuscular Volume 91.5 fL (80.0-100.0); Platelet Count (auto) 60 10^3/uL (140-450); Red Blood Cells 2.61 10^6/uL (4.5-5.90); Red Cell Distribution Width 22.2 % (11.8-14.3)
[2024-12-26 03:45] LABS: Alkaline Phosphatase 81 U/L (46-116); Anion Gap 14 (5-15); BUN/Creatinine Ratio 48.8 (10.0-20.0); Chloride 106 mmol/L (98-107); Magnesium 2.1 mg/dL (1.6-2.6)
[2024-12-26 03:47] LABS: Alanine Aminotransferase 193 U/L (7-40); Albumin 2.1 g/dL (3.2-4.8); Aspartate Aminotransferase 104 U/L (13-40); Basophils % (manual) 0 (0.0-2.0); Bilirubin, Total 1.2 mg/dL (0.2-1.0); Blast Cells 0; Calcium 10.7 mg/dL (8.7-10.4); Carbon Dioxide 34 mmol/L (20-31); Eosinophils % (manual) 0 (0-7); Glucose 222 mg/dL (74-106); Metamyelocytes % 0; Potassium 2.7 mmol/L (3.5-5.1); Promyelocytes % 0; Reactive Lymphocytes 0; Sodium 154 mmol/L (136-145); Total Protein 8.5 g/dL (5.7-8.2)
[2024-12-26 03:48] LABS: Blood Urea Nitrogen 100 mg/dL (9-23)
--- NOTE | 2024-12-26 05:37 | DVH ---
EXAM: XR Chest, 1 View CLINICAL INDICATION: INTUBATED TECHNIQUE: Frontal view of the chest. COMPARISON: XY CHEST PORTABLE on DOS: 12/25/24, XY CHEST PORTABLE on DOS: 12/24/24, XY CHEST XRAY 1 V IEW on DOS: 12/23/24, XY CHEST XRAY 1 VIEW on DOS: 12/23/24, XY CHEST XRAY 1 VIEW on DOS: 12/22/24 FINDINGS: LUNGS AND PLEURAL SPACES: Pulmonary congestion and edema. Pneumonia cannot be excluded. No pneumot horax. HEART: Unremarkable. No cardiomegaly. MEDIASTINUM: Unremarkable. Normal mediastinal contour. BONES/JOINTS: Unremarkable. No acute fracture. TUBES, LINES AND DEVICES: Stable tubes and lines. OTHER FINDINGS: . IMPRESSION: Pulmonary congestion and edema. Pneumonia cannot be excluded.
[2024-12-26 05:52] LABS: Band Neutrophils % (manual) 7; Lymphocytes % (manual) 4 (10.0-50.0); Monocytes % (manual) 2 (0-12); Myelocytes % 1
[2024-12-26 05:53] LABS: Anisocytosis Slight; Rouleau Present
[2024-12-26 05:54] LABS: Platelet Estimate Decreased
[2024-12-26 07:43] LABS: Base Excess 8.1 mmol/L (-2.0-3.0)
[2024-12-26] MEDS: POTASSIUM CHLORIDE 40 MEQ in D5W 5% 1,000 ML IV SCH (11:30)
[2024-12-26] MEDS: POTASSIUM EFFERVESENT TAB 25 MEQ PO ONE (11:31)
[2024-12-26] MEDS: ALBUMIN 25% 100 ML IV SCH (11:33)
[2024-12-26] MEDS: FREE WATER GT SCH (11:34)
[2024-12-26 13:07] LABS: QuantiFERON-TB Gold Plus Negative (Negative)
[2024-12-26] MEDS: VANCOMYCIN 750mg/150ml 150 ML IV ONE (13:15)
--- NOTE | 2024-12-26 13:59 | DVHPNRES ---
Progress Note Date Seen: Dec 26, 2024 Resident Creating Document: ELIZABETH STRAUSS RESIDENT Has the PT tested + for MRSA If YES, has PT been informed?: No Medical Necessity Reason Pt with a Central, PICC or Fol: Yes The following are medically ne: Leung Catheter Subjective Changes from previous H/P or p: No Changes Review of Systems: RESPIRATORY:Abnormal Other Systems: Patient seen and examined by myself today in round with the resident, I agree with his assessment and plan Objective vital signs Vital Sign Date Time Temp Pulse Resp B/P (MAP) Pulse Ox O2 Delivery O2 Flow Rate FiO2 12/26/24 11:58 98 27 141/55 (83) 96 30 12/26/24 08:00 Mechanical Ventilator+ 12/26/24 08:00 98.4 209.1 Total Intake and Output 12/25/24 12/25/24 12/26/24 15:00 23:00 07:00 Intake Total 513.628 ml 724.004 ml 564.876 ml Output Total 1275 ml 3025 ml Balance 513.628 ml -550.996 ml -2460.124 ml medications Current Medications Medications Dose Ordered Sig/Teddy Route Start Time Stop Time Status Last Admin Dose Admin Sodium Chloride 10 ml Q8HR IV 12/21/24 22:00 12/26/24 06:24 10 ML Acetaminophen 650 mg Q6HP PRN PO 12/21/24 17:30 12/22/24 13:57 650 MG Ondansetron HCl 4 mg Q4HP PRN IV 12/21/24 17:30 Pantoprazole Sodium 40 mg BID IV 12/21/24 22:00 12/26/24 11:35 40 MG Diagnostic Test (Pha) 1 strip Q6HR 12/21/24 18:00 12/26/24 12:36 1 STRIP Insulin Human Regular Q6HR SC 12/21/24 18:00 12/26/24 12:36 4 UNITS Dextrose 50 ml UD PRN IV 12/21/24 17:45 12/22/24 07:59 50 ML Midazolam HCl 50 ml @ 1 mls/hr Q24H IV 12/21/24 17:45 12/26/24 06:23 6 MLS/HR Vancomycin HCl 0 ml @ 0 mls/hr UD IV 12/21/24 18:30 Fentanyl Citrate 250 ml @ 2.5 mls/hr Q24H IV 12/22/24 02:15 12/26/24 06:31 12.5 MLS/HR Phenylephrine HCl 80 mg/Sodium Chloride 250 ml @ 7.5 mls/hr Q24H IV 12/22/24 08:30 12/23/24 12:16 16.875 MLS/HR Norepinephrine Bitartrate 32 mg/ Sodium Chloride 250 ml @ 0.938 mls/ hr Q24H IV 12/22/24 08:30 12/24/24 23:42 0.938 MLS/HR Meropenem 50 ml @ 17 mls/hr Q12HR IV 12/22/24 11:00 12/26/24 11:34 17 MLS/HR Micafungin Sodium 100 mg/Sodium Chloride 100 ml @ 100 mls/hr DAILY IV 12/23/24 10:00 12/26/24 11:35 100 MLS/HR Albuterol 2.5 mg Q6HR NEB 12/22/24 12:00 12/26/24 06:16 2.5 MG Ipratropium [place] 0.5 mg Q6HR NEB 12/22/24 12:00 12/26/24 06:17 0.5 MG Acetylcysteine 100 mg Q6HR NEB 12/22/24 12:00 12/26/24 06:17 100 MG Hydrocortisone Sodium Succinate 100 mg Q12HR IV 12/22/24 22:00 12/26/24 11:35 100 MG Albumin Human 100 ml @ 100 mls/hr PRN PRN IV 12/24/24 03:15 12/24/24 03:50 100 MLS/HR Purified Water 200 ml Q4HR GT 12/26/24 10:00 12/26/24 11:34 200 ML Enteral Nutritional Formula 1,000 ml 50ML/HR GT 12/26/24 08:45 Potassium Chloride 40 meq/ Dextrose 1,020 ml @ 100 mls/hr [id number] IV 12/26/24 08:45 12/26/24 11:30 100 MLS/HR Albumin Human 100 ml @ 100 mls/hr Q8H IV 12/26/24 10:00 12/27/24 02:59 12/26/24 11:33 100 MLS/HR Examination General Appearance: Endotracheally intubated. Chemically sedated. Off pressors Head Exam: Normal inspection Neck Exam: Normal inspection. Normal alignment, left gutierrez, right cvc Pulmonary/Respiratory: Diminished bilateral breath sounds. Endotracheally intubated, crackles b/l minimal settings. Cardiovascular/Chest: Regular rate and rhythm. S1, S2. No murmurs. Peripheral Pulses: 2+ Radial (R). 2+ Radial (L). 2+ Pedal (R). 2+ Pedal (L) Abdominal Exam: Normal bowel sounds. Soft. Ankle Exam: Negative ankle edema Lower extremities: Negative lower extremity edema Neuro/Mental Status: Chemically sedated. Withdrawn RASS -3 Thoughts/Psych: Unable to assess at this time Appearance: looks sick Skin Exam: Normal inspection. Normal color. warm IVC less congested, 3rd spacing. laboratory and microbiology Laboratory Tests 12/26/24 03:00 Test 12/26/24 03:00 Range/Units Serum Glucose 222 H 74-106 mg/dL Microbiology Date/Time Source Procedure Growth Status 12/24/24 10:22 Blood Blood Culture - Preliminary NO GROWTH AFTER 48 HOURS OF INCUBATION. Resulted 12/22/24 17:11 Urine - [place] Urine Culture - Final Complete 12/22/24 11:30 Nose MRSA Screen - Final Complete Labs and/or images reviewed: Labs reviewed by me, Image(s) reviewed by me Problem List/Assessment/Plan Problem List/Assessment/Plan Mr. De Los Santos, a 59-year-old man originally from [place], came from a living facility with a history of insulin-dependent diabetes mellitus and essential hypertension, and neuropathy, but limited surgical, family, and social histories was brought to the respiratory failure, CAP multifocal, severe sepsis, gm +ve bacteremia, CHF exacerbation and acute renal failure needing intubation, sedation, vasopressor, and initiation of HD with Gutierrez. The family lives in [place] with and 7 children, consented over phone for hemodialysis. S/p 1 episode of HD s/p 10 cc/hr Lasix drip diereses well overall improving fluid overloaded status. HD on hold. Assessment: # RYAN due to VMN. 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 Serum immunofixation came back at IgA protein with kappa specificity----Heme-Onc following---bone marrow biopsy pending # Worsening Anion-gap metabolic acidosis: Primary respiratory acidosis with secondary metabolic acidosis and additional metabolic alkalosis. # Recurrent hypokalemia on diuresis. 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 Findings: #Na 147>>154, K 3.1>2.7, free water deficit 5.1 L #Volume Status: hypotensive, but much less fluid overloaded, intravascular dry. 3rd spacing. #I/I=[id number]=(-2438) S/p HD x1 1L OUT > 10 cc /hr lasix> iv bumex 2 bid> iv bumex 1 bid #Cr=2.73>3.87>5.41>5.71>4.35>2.48>2.40>2.05 (unknown baseline) #BUN=45>54>71>71>86>69>80>100 #GFR=26>17>11>11>15>25>30>36 #Diet= Nepro started, continue free water NG tube q6 200 Plan: # Overall the patient is intravascular fluid depleted, hypovolumic hypernatrimia and rising BUN. Hold further dieresis. infuse Albumin 12. 5 x 2 bags. # Avoid aggressive Na correction, not exceeding 8-10 Meq/24 hours. # Renal function in recovery, No need of HD any further, please take out gutierrez catheter carefully given bacetermia, check ur. protein ration, electrolytes and daily labs, correct electrolytes as needed. # BID labs, Close I/O, keep on leung's, keep MAP>65, avoid antihypertensives, avoid nephrotoxics in ICU level of care, Vancomycin as per pharmacy noting trough closely, hold when necessary. # Rest of the treatment as per primay team. Guarded prognosis due to complicated medical conditions, bone marrow biopsy and Urine protein electrophoresis as needed deferred to hematooncology. Thank you for the opportunity to consult on your patient. In case of any question feel free to reach out to the Nephrology team. Will follow the patient. Discussed with Nephrology attending Dr. Carson. Plan discussed with: Patient, Other Dietary Evaluation Review Comments: 1) EN Glucerna 1.2 Adolfo @ 65ml/hr, Start @ 30ml/hr increase 10ml/hr Q4H until goal is reached. water flush 50ml Q4H if allowed. 2) Consider TPN/PN if NPO>7 days 3) Advance diet as medically feasible 4) Continue current plan of care Expected Outcomes/Goals: Pt will meet >75% estimated needs Fu 2-3 days CC Plasma Assessment Blood Product Administration S: [id number] ELIZABETH STRAUSS Dec 26, 2024 13:59 CARO CARSON MD Dec 26, 2024 16:27
[2024-12-26 14:24] LABS: Anion Gap 13 (5-15); Calcium 10.4 mg/dL (8.7-10.4)
[2024-12-26 14:29] LABS: BUN/Creatinine Ratio 49.2 (10.0-20.0)
[2024-12-26 14:30] LABS: Carbon Dioxide 35 mmol/L (20-31); Chloride 108 mmol/L (98-107); Glucose 301 mg/dL (74-106); Potassium 3.1 mmol/L (3.5-5.1); Sodium 156 mmol/L (136-145)
[2024-12-26 14:32] LABS: Blood Urea Nitrogen 95 mg/dL (9-23)
[2024-12-26] MEDS: VASOPRESSIN 20 UNITS in SODIUM CHL 0.9% 99 ML IV SCH (16:30)
--- NOTE | 2024-12-26 17:19 | DVHPN2 ---
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 No cardiac events reported overnight Objective vital signs Vital Sign Date Time Temp Pulse Resp B/P (MAP) Pulse Ox O2 Delivery O2 Flow Rate FiO2 12/26/24 16:30 99.1 98 27 134/66 (88) 99 210.4 160/57 (91) 12/26/24 16:04 30 12/26/24 16:00 Mechanical Ventilator+ Total Intake and Output 12/25/24 12/25/24 12/26/24 15:00 23:00 07:00 Intake Total 513.628 ml 724.004 ml 564.876 ml Output Total 1275 ml 3025 ml Balance 513.628 ml -550.996 ml -2460.124 ml medications Current Medications Medications Dose Ordered Sig/Teddy Route Start Time Stop Time Status Last Admin Dose Admin Sodium Chloride 10 ml Q8HR IV 12/21/24 22:00 12/26/24 06:24 10 ML Acetaminophen 650 mg Q6HP PRN PO 12/21/24 17:30 12/22/24 13:57 650 MG Ondansetron HCl 4 mg Q4HP PRN IV 12/21/24 17:30 Pantoprazole Sodium 40 mg BID IV 12/21/24 22:00 12/26/24 11:35 40 MG Diagnostic Test (Pha) 1 strip Q6HR 12/21/24 18:00 12/26/24 12:36 1 STRIP Insulin Human Regular Q6HR SC 12/21/24 18:00 12/26/24 12:36 4 UNITS Dextrose 50 ml UD PRN IV 12/21/24 17:45 12/22/24 07:59 50 ML Midazolam HCl 50 ml @ 1 mls/hr Q24H IV 12/21/24 17:45 12/26/24 06:23 6 MLS/HR Vancomycin HCl 0 ml @ 0 mls/hr UD IV 12/21/24 18:30 Fentanyl Citrate 250 ml @ 2.5 mls/hr Q24H IV 12/22/24 02:15 12/26/24 06:31 12.5 MLS/HR Phenylephrine HCl 80 mg/Sodium Chloride 250 ml @ 7.5 mls/hr Q24H IV 12/22/24 08:30 12/23/24 12:16 16.875 MLS/HR Norepinephrine Bitartrate 32 mg/ Sodium Chloride 250 ml @ 0.938 mls/ hr Q24H IV 12/22/24 08:30 12/24/24 23:42 0.938 MLS/HR Meropenem 50 ml @ 17 mls/hr Q12HR IV 12/22/24 11:00 12/26/24 11:34 17 MLS/HR Micafungin Sodium 100 mg/Sodium Chloride 100 ml @ 100 mls/hr DAILY IV 12/23/24 10:00 12/26/24 11:35 100 MLS/HR Albuterol 2.5 mg Q6HR NEB 12/22/24 12:00 12/26/24 13:49 2.5 MG Ipratropium [place] 0.5 mg Q6HR NEB 12/22/24 12:00 12/26/24 13:48 0.5 MG Acetylcysteine 100 mg Q6HR NEB 12/22/24 12:00 12/26/24 13:49 100 MG Hydrocortisone Sodium Succinate 100 mg Q12HR IV 12/22/24 22:00 12/26/24 11:35 100 MG Albumin Human 100 ml @ 100 mls/hr PRN PRN IV 12/24/24 03:15 12/24/24 03:50 100 MLS/HR Purified Water 200 ml Q4HR GT 12/26/24 10:00 12/26/24 11:34 200 ML Enteral Nutritional Formula 1,000 ml 50ML/HR GT 12/26/24 08:45 Potassium Chloride 40 meq/ Dextrose 1,020 ml @ 100 mls/hr [id number] IV 12/26/24 08:45 12/26/24 11:30 100 MLS/HR Albumin Human 100 ml @ 100 mls/hr Q8H IV 12/26/24 10:00 12/27/24 02:59 12/26/24 11:33 100 MLS/HR Vasopressin 20 units/Sodium Chloride 100 ml @ 9 mls/hr Q11H7M IV 12/26/24 16:30 Examination: GENERAL:Abnormal, LUNGS:Abnormal (Mechanically ventilated), CVS:Normal, NEURO:Abnormal (Chemically sedated) laboratory and microbiology Laboratory Tests 12/26/24 13:59 12/26/24 03:00 Test 12/26/24 13:59 Range/Units Serum Glucose 301 H 74-106 mg/dL Problem List/Assessment/Plan Problem List/Assessment/Plan Septic shock with multifocal pneumonia Acute hypoxic respiratory failure Acute renal-cardiac syndrome type III NSTEMI, likely type 2 secondary to above Newly diagnosed HFmrEF with LVEF at 40-45% Hx of hypertension Insulin-dependent diabetes mellitus Acute anemia s/p PRBCs x 2 units, ?GI bleed RYAN with likely underlined CKD on HD Thrombocytopenia Plan/Recommendation (Dr. Cortez) Transthoracic echocardiogram revealed EF 40-45% RVSP 45 mmHg. 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 GDMT as tolerated by BP and renal function. Will initiate low dose beta alysha if patient remains off vasopressors (at least 24 hours). Likely NSTEMI Type II given sepsis, RYAN, and hemodynamic derangement. Continue ABX therapy per primary care team. Obtain FOBT and monitor H&H/platelet count closely. Further orders per clinical course. Thank you for allowing us to participate in this patient's care. Please call if you have any questions or concerns. Critical Care Time: 30 min. This medical document was created using an electronic medical record system with voice recognition software and computerized dictation system. Although this document has been carefully reviewed, there might still be some phonetic and typographical errors. Occasional wrong-word or ``sound-alike substitutions may have occurred due to the inherent limitations of voice recognition software. These areas are purely typographical due to imperfections of the software programs and do not reflect any compromise in the patient's medical care. Please read the chart carefully and recognize, using context, where these substitutions have occurred. Plan discussed with: Other (Bedside RN ) Dietary Evaluation Review Comments: 1) EN Glucerna 1.2 Adolfo @ 65ml/hr, Start @ 30ml/hr increase 10ml/hr Q4H until goal is reached. water flush 50ml Q4H if allowed. 2) Consider TPN/PN if NPO>7 days 3) Advance diet as medically feasible 4) Continue current plan of care Expected Outcomes/Goals: Pt will meet >75% estimated needs Fu 2-3 days CC Plasma Assessment Blood Product Administration S: [id number] Date of Service: Dec 26, 2024 Billing Provider: PATTI CHAVEZ Common Visit Codes: [id number] CARE 30-74 MIN PATTI CHAVEZ Dec 26, 2024 17:19
[2024-12-26] MEDS: PROPOFOL 100 ML IV SCH (17:59)
[2024-12-26] MEDS ORDERED: BUMETANIDE 1mg/4ml VIAL (0.25mg/ml) IV SCH (18:00)
[2024-12-26] MEDS: PROPOFOL 100 ML IV ONE (18:02)
[2024-12-26] MEDS: LABETALOL HCL 20 MG/4 ML VL IV PRN (18:43)
[2024-12-26 19:13] LABS: Magnesium 2.1 mg/dL (1.6-2.6)
[2024-12-26] MEDS: POTASSIUM EFFERVESENT TAB 25 MEQ GT ONE (20:35)
[2024-12-26] MEDS: CARVEDILOL 3.125 MG TAB NG SCH (22:10)
[2024-12-27] VITALS (110 sets, daily range): BP systolic 129–196; BP diastolic 42–93; PULSE 84–102; RESP 9–26; TEMP 98.2–100.2; O2SAT 89–100
[2024-12-27] MEDS ORDERED: POTASSIUM CHL 20MEQ/100ML 100 ML IV ONE (06:45)
[2024-12-27 07:30] LABS: Base Excess 10.9 mmol/L (-2.0-3.0)
[2024-12-27] MEDS: POTASSIUM CHL 20MEQ/50ML 50 ML IV ONE (08:51)
--- NOTE | 2024-12-27 09:41 | DVHPN2 ---
Progress Note Date Seen: Dec 27, 2024 Has the PT tested + for MRSA If YES, has PT been informed?: No Medical Necessity Reason Pt with a Central, PICC or Fol: Yes The following are medically ne: Romero Catheter Subjective Review of Systems: RESPIRATORY:Abnormal Other Systems: Patient seen and examined by myself today in follow-up, patient remained intubated on ventilator Objective vital signs Vital Sign Date Time Temp Pulse Resp B/P (MAP) Pulse Ox O2 Delivery O2 Flow Rate FiO2 12/27/24 08:21 93 21 151/55 (87) 96 30 12/27/24 07:00 98.6 209.5 12/27/24 06:00 Mechanical Ventilator+ Total Intake and Output 12/26/24 12/26/24 12/27/24 15:00 23:00 07:00 Intake Total 954.0 ml 1965.253 ml 2134.895 ml Output Total 2475 ml 1750 ml Balance 954.0 ml -509.747 ml 384.895 ml medications Current Medications Medications Dose Ordered Sig/Teddy Route Start Time Stop Time Status Last Admin Dose Admin Sodium Chloride 10 ml Q8HR IV 12/21/24 22:00 12/27/24 05:48 10 ML Acetaminophen 650 mg Q6HP PRN PO 12/21/24 17:30 12/22/24 13:57 650 MG Ondansetron HCl 4 mg Q4HP PRN IV 12/21/24 17:30 Pantoprazole Sodium 40 mg BID IV 12/21/24 22:00 12/26/24 22:09 40 MG Diagnostic Test (Pha) 1 strip Q6HR 12/21/24 18:00 12/27/24 05:48 1 STRIP Insulin Human Regular Q6HR SC 12/21/24 18:00 12/27/24 06:06 8 UNITS Dextrose 50 ml UD PRN IV 12/21/24 17:45 12/22/24 07:59 50 ML Midazolam HCl 50 ml @ 1 mls/hr Q24H IV 12/21/24 17:45 12/27/24 06:09 9 MLS/HR Vancomycin HCl 0 ml @ 0 mls/hr UD IV 12/21/24 18:30 Fentanyl Citrate 250 ml @ 2.5 mls/hr Q24H IV 12/22/24 02:15 12/27/24 06:12 22.5 MLS/HR Phenylephrine HCl 80 mg/Sodium Chloride 250 ml @ 7.5 mls/hr Q24H IV 12/22/24 08:30 12/23/24 12:16 16.875 MLS/HR Norepinephrine Bitartrate 32 mg/ Sodium Chloride 250 ml @ 0.938 mls/ hr Q24H IV 12/22/24 08:30 12/24/24 23:42 0.938 MLS/HR Meropenem 50 ml @ 17 mls/hr Q12HR IV 12/22/24 11:00 12/26/24 22:09 17 MLS/HR Micafungin Sodium 100 mg/Sodium Chloride 100 ml @ 100 mls/hr DAILY IV 12/23/24 10:00 12/26/24 11:35 100 MLS/HR Albuterol 2.5 mg Q6HR NEB 12/22/24 12:00 12/27/24 06:12 2.5 MG Ipratropium [place] 0.5 mg Q6HR NEB 12/22/24 12:00 12/27/24 06:12 0.5 MG Acetylcysteine 100 mg Q6HR NEB 12/22/24 12:00 12/27/24 06:12 100 MG Hydrocortisone Sodium Succinate 100 mg Q12HR IV 12/22/24 22:00 12/26/24 22:09 100 MG Albumin Human 100 ml @ 100 mls/hr PRN PRN IV 12/24/24 03:15 12/24/24 03:50 100 MLS/HR Purified Water 200 ml Q4HR GT 12/26/24 10:00 12/27/24 05:48 200 ML Enteral Nutritional Formula 1,000 ml 50ML/HR GT 12/26/24 08:45 Potassium Chloride 40 meq/ Dextrose 1,020 ml @ 100 mls/hr [id number] IV 12/26/24 08:45 12/26/24 21:50 100 MLS/HR Vasopressin 20 units/Sodium Chloride 100 ml @ 9 mls/hr Q11H7M IV 12/26/24 16:30 Propofol 100 ml @ 2.553 mls/ hr Q24H IV 12/26/24 18:00 12/27/24 06:10 7.659 MLS/HR Labetalol HCl 10 mg Q4HPRN PRN IV 12/26/24 18:30 12/26/24 18:43 10 MG Carvedilol 3.125 mg Q12HR NG 12/26/24 22:00 12/26/24 22:10 3.125 MG Examination: LUNGS:Normal, CVS:Normal, MSK:Normal laboratory and microbiology Laboratory Tests 12/27/24 03:46 12/26/24 18:22 12/26/24 13:59 12/26/24 03:00 Test 12/26/24 13:59 Range/Units Serum Glucose 301 H 74-106 mg/dL Microbiology Date/Time Source Procedure Growth Status 12/24/24 10:22 Blood Blood Culture - Preliminary NO GROWTH AFTER 48 HOURS OF INCUBATION. Resulted 12/22/24 17:11 Urine - [place] Urine Culture - Final Complete 12/22/24 11:30 Nose MRSA Screen - Final Complete Problem List/Assessment/Plan Problem List/Assessment/Plan Acute kidney injury superimposed Chronic Kidney Disease secondary hemodynamic mediated Acute respiratory failure, patient intubated on ventilator Multifocal pneumonia Congestive heart failure, ejection fraction 40% Hypokalemia Hypernatremia due to aggressive diuresis Septic shock Recommendations Kidney function is improving Romero catheter Strict I&Os Hold diuretics Free water down NG tube KCL replacement IV antibiotics We will continue to follow Plan discussed with: Other (Nurse) My Orders My Orders Orders - CARO HARRIS MD Procedure Category Date Status Time Urine LAB 12/26/24 Logged Protein/Creatinine Immunofixation Urine LAB 12/26/24 Logged 10:02 Communication Order ORDERS 12/26/24 Transmitted 19:07 Comprehensive LAB 12/27/24 Logged Metabolic Panel 09:38 Free Water PHA 12/27/24 Logged 10:00 Potassium Chl Seth PHA 12/27/24 Verified KCL 09:45 Dietary Evaluation Review Comments: 1) EN Glucerna 1.2 Adolfo @ 65ml/hr, Start @ 30ml/hr increase 10ml/hr Q4H until goal is reached. water flush 50ml Q4H if allowed. 2) Consider TPN/PN if NPO>7 days 3) Advance diet as medically feasible 4) Continue current plan of care Expected Outcomes/Goals: Pt will meet >75% estimated needs Fu 2-3 days CC Plasma Assessment Blood Product Administration S: [id number] CARO HARRIS MD Dec 27, 2024 09:41
[2024-12-27] MEDS: FREE WATER GT SCH (10:00)
[2024-12-27] MEDS ORDERED: POTASSIUM CHL 20MEQ/50ML 50 ML IV SCH (10:45)
[2024-12-27 11:35] LABS: Alkaline Phosphatase 102 U/L (46-116); Anion Gap 13 (5-15); BUN/Creatinine Ratio 57.1 (10.0-20.0); Bilirubin, Total 1.2 mg/dL (0.2-1.0)
[2024-12-27 11:39] LABS: Alanine Aminotransferase 145 U/L (7-40); Albumin 2.6 g/dL (3.2-4.8); Aspartate Aminotransferase 81 U/L (13-40); Calcium 11.2 mg/dL (8.7-10.4); Carbon Dioxide 36 mmol/L (20-31); Chloride 109 mmol/L (98-107); Glucose 338 mg/dL (74-106); Potassium 3.5 mmol/L (3.5-5.1); Sodium 158 mmol/L (136-145); Total Protein 8.4 g/dL (5.7-8.2)
[2024-12-27 11:40] LABS: Blood Urea Nitrogen 93 mg/dL (9-23)
[2024-12-27] MEDS: VANCOMYCIN 1GM/250ML KIT 250 ML IV ONE (12:31)
--- NOTE | 2024-12-27 13:23 | DVHPN2 ---
Assessment/Plan Assessment/Plan ICU note 59 yo M with IDDM HTN admitted for AMS, had acute hypoxic respiratory failure and was intubated and placed on mechanical ventilation. concern for MM, had HD with renal recovery. seen by me today during rounds, no pressor reqs, minimal vent settings, will try CPAP and deline Physical exam Intubated, sedated on mechanical ventilation corneal, gag and cough present PERLLA mechanical breath sounds s1 s2 rrr abdomen soft LE edema Labs EKG imaging reviewed cultures NGTD Assessment and plan acute hypoxic respiratory failure req mechanical ventilation multifocal PNA gp vs gn acute systolic heart failure HFmrEF septic shock RYAN VMN on CKD IDDM HTN pancytopenia type 2 IN demand ischemia hypernatremia c/w mechanical ventilation maintain spo2 >94% c/w pressors maintain MAP >65 c/w sedation maintain RAAS -2 daily SAT SBT c/w lasix maintain net -500 to 1 L c/w vanc and félix and micafungin c/w hydrocortisone hemonc consult, concern for MM c/w FWF keep glucose between 150-200 keep K 4, Ph 3, Mg 2 lines ETT NGT TLC - remove a line - remove leung diet jevity dvt ppx lovenox gi ppx protonix code status full code goals of care curative critical care time 60 minutes Plan discussed with: Other Date of Service: Dec 27, 2024 Billing Provider: WILLAM PEARL MD Common Visit Codes: [id number] CARE 30-74 MIN WILLAM PEARL MD Dec 27, 2024 13:23
[2024-12-27] MEDS: POTASSIUM CHL 20MEQ/50ML 50 ML IV SCH (15:00)
[2024-12-27] MEDS: Nepro With Carb Steady 1 Liter Bottle GT SCH (15:44)
[2024-12-27] MEDS: POLYETHYLENE GLYCOL 17 GM PWDR PO ONE (16:40)
[2024-12-27] MEDS: METOCLOPRAMIDE HCL 5MG/ml INJ 2ml VIAL IV ONE (16:40)
--- NOTE | 2024-12-27 17:40 | DVHNC2 ---
Other Procedure Procedure Right Basilic Vein Midline Catheter Indication DIVA Anesthetic patient on fentanyl and midazolam Prep Area prepped with chlorhexidine and drapped in a sterile manner Success 20G midline catheter at 12cm fixed with a statlock in the right arm basilic vein UTO Consent yes Date of Service: Dec 27, 2024 Billing Provider: WILLAM PEARL MD Common Visit Codes: PROCEDURE ONLY (90799) WERNER PARNELL RESIDENT Dec 27, 2024 17:40 WILLAM PEARL MD Dec 27, 2024 20:18
--- NOTE | 2024-12-27 19:52 | DVHPN2 ---
Progress Note - Dictate Date Seen: Dec 27, 2024 Has the PT tested + for MRSA If YES, has PT been informed?: No Medical Necessity Reason Pt with a Central, PICC or Fol: Yes The following are medically ne: Leung Catheter Reason for leung catheter: Strict I&O Subjective Patient seen and examined at bedside. Sedated, intubated on mechanical ventilator. Overnight events reviewed. vital signs Vital Sign Date Time Temp Pulse Resp B/P (MAP) Pulse Ox O2 Delivery O2 Flow Rate FiO2 12/27/24 18:53 91 167/87 12/27/24 18:45 99.9 19 98 211.8 12/27/24 18:22 35 12/27/24 17:30 Mechanical Ventilator+ Total Intake and Output 12/26/24 12/26/24 12/27/24 15:00 23:00 07:00 Intake Total 954.0 ml 1965.253 ml 2134.895 ml Output Total 2475 ml 1750 ml Balance 954.0 ml -509.747 ml 384.895 ml medications Current Medications Medications Dose Ordered Sig/Teddy Route Start Time Stop Time Status Last Admin Dose Admin Sodium Chloride 10 ml Q8HR IV 12/21/24 22:00 12/27/24 14:00 10 ML Acetaminophen 650 mg Q6HP PRN PO 12/21/24 17:30 12/22/24 13:57 650 MG Ondansetron HCl 4 mg Q4HP PRN IV 12/21/24 17:30 Pantoprazole Sodium 40 mg BID IV 12/21/24 22:00 12/27/24 09:56 40 MG Diagnostic Test (Pha) 1 strip Q6HR 12/21/24 18:00 12/27/24 17:44 1 STRIP Insulin Human Regular Q6HR SC 12/21/24 18:00 12/27/24 17:54 4 UNITS Dextrose 50 ml UD PRN IV 12/21/24 17:45 12/22/24 07:59 50 ML Midazolam HCl 50 ml @ 1 mls/hr Q24H IV 12/21/24 17:45 12/27/24 17:51 7 MLS/HR Vancomycin HCl 0 ml @ 0 mls/hr UD IV 12/21/24 18:30 Fentanyl Citrate 250 ml @ 2.5 mls/hr Q24H IV 12/22/24 02:15 12/27/24 17:14 22.5 MLS/HR Meropenem 50 ml @ 17 mls/hr Q12HR IV 12/22/24 11:00 12/27/24 09:56 17 MLS/HR Micafungin Sodium 100 mg/Sodium Chloride 100 ml @ 100 mls/hr DAILY IV 12/23/24 10:00 12/27/24 09:56 100 MLS/HR Albuterol 2.5 mg Q6HR NEB 12/22/24 12:00 12/27/24 18:14 2.5 MG Ipratropium [place] 0.5 mg Q6HR NEB 12/22/24 12:00 12/27/24 18:14 0.5 MG Acetylcysteine 100 mg Q6HR NEB 12/22/24 12:00 12/27/24 18:15 100 MG Albumin Human 100 ml @ 100 mls/hr PRN PRN IV 12/24/24 03:15 12/24/24 03:50 100 MLS/HR Enteral Nutritional Formula 1,000 ml 50ML/HR GT 12/26/24 08:45 12/27/24 15:44 1,000 ML Vasopressin 20 units/Sodium Chloride 100 ml @ 9 mls/hr Q11H7M IV 12/26/24 16:30 Propofol 100 ml @ 2.553 mls/ hr Q24H IV 12/26/24 18:00 12/27/24 17:06 7.659 MLS/HR Labetalol HCl 10 mg Q4HPRN PRN IV 12/26/24 18:30 12/27/24 18:53 10 MG Purified Water 300 ml Q4HR GT 12/27/24 10:00 12/27/24 17:44 300 ML Carvedilol 6.25 mg Q12HR NG 12/27/24 22:00 Insulin Glargine 8 units HS SC 12/27/24 22:00 objective Gen.: Patient lying in bed in medical ICU. Sedated, intubated on mechanical ventilator. Head: Normocephalic, atraumatic. Eyes: PERRLA. Ears: Normal external anatomy. Throat: Endotracheal tube and orogastric tube in place. Neck: Supple, trachea midline. Chest: Transmitted breath sounds bilaterally. Decreased air entry bilaterally. No wheezing. Bibasilar crackles. Cardiovascular: Positive S1, positive S2. Regular rate and rhythm. Abdomen: Positive bowel sounds in all 4 quadrants. Soft, nontender, nondistended. : Leung in place. Normal external genitalia. Rectal: Deferred. Skin: Warm, dry. Intact. Extremities: 2+ radial pulses bilaterally. No lower extremity edema. Neuro: Sedated. laboratory and microbiology Laboratory Tests 12/27/24 03:46 12/26/24 03:00 Test 12/27/24 03:46 Range/Units Serum Glucose 338 H 74-106 mg/dL Assessment/Plan Impression: Acute hypoxic respiratory failure On mechanical ventilator Severe sepsis Severe anemia Events: CPAP with PS 12, PEEP of 6, FiO2 35% Sedated on Propofol, Versed, Fentanyl ABG reviewed, notable for alkalemia Continue antibiotics Continue bronchodilators IV steroids Continue antifungals Tube feeds for nutritional support Monitor hemoglobin Potassium supplementation Monitor renal function. Labs and imaging reviewed. Rest of plan as noted below. Plan: s/p intubation on mechanical ventilator. On AC mode; RR 20, VT 550,PEEP 6, FiO2 30% Titrate FIO2 to keep O2 saturation above 90%. VAP bundle. Daily ABG and CXR while intubated Sedate for ventilator synchrony Continue bronchodilators. Continue antibiotics. F/u cultures. Pressors if necessary for hemodynamic support Titrate to keep mean arterial pressure greater than 65 mmHg. Monitor renal function Monitor electrolytes. Supplement as necessary. Monitor ins and outs. Maintain euvolemia. GI prophylaxis. DVT prophylaxis. Prognosis: Poor given patient's multiple co-morbidities. Condition: Critical Rest of plan per hospitalist and other consultants. A total of 35 minutes of critical care time was spent reviewing the patient record, examining the patient, making a diagnostic and therapeutic plan, discussing this plan with the medical personnel, following up on diagnostic studies and following the patient for clinical stability excluding any and all procedures. At least 50% of this time was spent in direct, [id number] contact. Thank you, LYN Degroot, for allowing me to participate in this patient's care. Further recommendations will depend on the patient's clinical course. Please do not hesitate to contact me if you have any questions or concerns. This medical document was created using an electronic medical record system with Checkr dictation system. Although these documentations are being carefully reviewed, there may still be some phonetic and typographical changes. The errors are purely typographical, due to imperfection on the software program, and do not reflect any compromise in the patient's medical care. Dietary Evaluation Review Comments: 1) EN Glucerna 1.2 Adolfo @ 65ml/hr, Start @ 30ml/hr increase 10ml/hr Q4H until goal is reached. water flush 50ml Q4H if allowed. 2) Consider TPN/PN if NPO>7 days 3) Advance diet as medically feasible 4) Continue current plan of care Expected Outcomes/Goals: Pt will meet >75% estimated needs Fu 2-3 days Plan discussed with: Other (ALLEN Lagos) Critical Care Time(min): 35 CC Plasma Assessment Blood Product Administration S: [id number] GISELE HERRERA MD Dec 27, 2024 19:52
[2024-12-27] MEDS: CARVEDILOL 3.125 MG TAB NG SCH (21:54)
[2024-12-27] MEDS: INSULIN LANTUS (GLARGINE) 1 /0.01ml (100units/ml) SC SCH (22:19)
[2024-12-28] VITALS (108 sets, daily range): BP systolic 136–173; BP diastolic 69–90; PULSE 73–99; RESP 14–31; TEMP 97.2–100.2; O2SAT 89–100
[2024-12-28 04:02] LABS: Hemoglobin 8.3 g/dL (13.5-17.5); Mean Corpuscular Hemoglobin 31.2 pg (28.0-32.0); Red Blood Cells 2.67 10^6/uL (4.5-5.90)
[2024-12-28 04:05] LABS: Hematocrit 25.5 % (41.0-53.0); Mean Corpuscular Hgb Conc. 32.7 g/dL (32.0-36.0); Mean Corpuscular Volume 95.4 fL (80.0-100.0); Platelet Count (auto) 74 10^3/uL (140-450); Red Cell Distribution Width 22.8 % (11.8-14.3); White Blood Cell 16.6 10^3/uL (4.4-10.8)
[2024-12-28 04:11] LABS: Basophils % (manual) 0 (0.0-2.0); Blast Cells 0; Eosinophils % (manual) 0 (0-7); Metamyelocytes % 0; Monocytes % (manual) 0 (0-12); Myelocytes % 0; Promyelocytes % 0; Reactive Lymphocytes 0
[2024-12-28 04:30] LABS: Magnesium 2.1 mg/dL (1.6-2.6); Phosphorus 3.1 mg/dL (2.4-5.1); Potassium 3.6 mmol/L (3.5-5.1)
[2024-12-28 04:40] LABS: Carbon Dioxide 36 mmol/L (20-31)
[2024-12-28 04:43] LABS: Alanine Aminotransferase 134 U/L (7-40); Albumin 2.2 g/dL (3.2-4.8); Alkaline Phosphatase 128 U/L (46-116); Anion Gap 16 (5-15); Aspartate Aminotransferase 100 U/L (13-40); Calcium 11.5 mg/dL (8.7-10.4); Chloride 109 mmol/L (98-107); Glucose 199 mg/dL (74-106); Total Protein 8.4 g/dL (5.7-8.2)
[2024-12-28 04:44] LABS: Blood Urea Nitrogen 85 mg/dL (9-23); Sodium 161 mmol/L (136-145)
[2024-12-28 05:18] LABS: Band Neutrophils % (manual) 4; Lymphocytes % (manual) 17 (10.0-50.0)
[2024-12-28 05:19] LABS: Anisocytosis Slight; Platelet Estimate Decreased; Rouleau Present
--- NOTE | 2024-12-28 06:08 | DVH ---
CHEST RADIOGRAPH Indication: INTUBATED Technique: Single frontal view of the chest was obtained COMPARISON: XY CHEST PORTABLE on DOS: 12/26/24, XY CHEST PORTABLE on DOS: 12/25/24, XY CHEST PORTABLE o n DOS: 12/24/24, XY CHEST XRAY 1 VIEW on DOS: 12/23/24, XY CHEST XRAY 1 VIEW on DOS: 12/23/24 FINDINGS: Lines and Tubes: Unchanged Lungs: Slight interval improvement in diffuse bilateral prominence of the pulmonary vasculature. No e vidence of consolidation. Pleura: No effusion. No pneumothorax. Cardiomediastinal contours: Unremarkable Bones: Unremarkable IMPRESSION: 1. Slight interval improvement in diffuse bilateral prominence of the pulmonary vasculature.
--- NOTE | 2024-12-28 10:11 | DVHPN2 ---
Progress Note Date Seen: Dec 28, 2024 Has the PT tested + for MRSA If YES, has PT been informed?: No Medical Necessity Reason Pt with a Central, PICC or Fol: Yes The following are medically ne: Leung Catheter Reason for leung catheter: Strict I&O Subjective Review of Systems: RESPIRATORY:Abnormal Other Systems: Patient seen and examined by myself today in follow-up Patient remained intubated on ventilator Objective vital signs Vital Sign Date Time Temp Pulse Resp B/P (MAP) Pulse Ox O2 Delivery O2 Flow Rate FiO2 12/28/24 08:32 78 23 162/86 (111) 99 30 12/28/24 08:00 Mechanical Ventilator+ 12/28/24 07:00 98.6 209.5 Total Intake and Output 12/27/24 12/27/24 12/28/24 15:00 23:00 07:00 Intake Total 445.0919 ml 1152.578 ml 1643.855 ml Output Total 1900 ml 1950 ml Balance 445.0919 ml -747.422 ml -306.145 ml medications Current Medications Medications Dose Ordered Sig/Teddy Route Start Time Stop Time Status Last Admin Dose Admin Sodium Chloride 10 ml Q8HR IV 12/21/24 22:00 12/28/24 05:43 10 ML Acetaminophen 650 mg Q6HP PRN PO 12/21/24 17:30 12/22/24 13:57 650 MG Ondansetron HCl 4 mg Q4HP PRN IV 12/21/24 17:30 Pantoprazole Sodium 40 mg BID IV 12/21/24 22:00 12/27/24 21:55 40 MG Diagnostic Test (Pha) 1 strip Q6HR 12/21/24 18:00 12/28/24 05:43 1 STRIP Insulin Human Regular Q6HR SC 12/21/24 18:00 12/28/24 05:52 199 UNITS Dextrose 50 ml UD PRN IV 12/21/24 17:45 12/22/24 07:59 50 ML Midazolam HCl 50 ml @ 1 mls/hr Q24H IV 12/21/24 17:45 12/28/24 01:59 5 MLS/HR Vancomycin HCl 0 ml @ 0 mls/hr UD IV 12/21/24 18:30 Fentanyl Citrate 250 ml @ 2.5 mls/hr Q24H IV 12/22/24 02:15 12/28/24 05:17 17.5 MLS/HR Meropenem 50 ml @ 17 mls/hr Q12HR IV 12/22/24 11:00 12/27/24 21:55 17 MLS/HR Micafungin Sodium 100 mg/Sodium Chloride 100 ml @ 100 mls/hr DAILY IV 12/23/24 10:00 12/27/24 09:56 100 MLS/HR Albuterol 2.5 mg Q6HR NEB 12/22/24 12:00 12/28/24 06:05 2.5 MG Ipratropium [place] 0.5 mg Q6HR NEB 12/22/24 12:00 12/28/24 06:05 0.5 MG Acetylcysteine 100 mg Q6HR NEB 12/22/24 12:00 12/28/24 06:05 100 MG Albumin Human 100 ml @ 100 mls/hr PRN PRN IV 12/24/24 03:15 12/24/24 03:50 100 MLS/HR Enteral Nutritional Formula 1,000 ml 50ML/HR GT 12/26/24 08:45 12/27/24 15:44 1,000 ML Vasopressin 20 units/Sodium Chloride 100 ml @ 9 mls/hr Q11H7M IV 12/26/24 16:30 Propofol 100 ml @ 2.553 mls/ hr Q24H IV 12/26/24 18:00 12/27/24 23:48 12.765 MLS/HR Labetalol HCl 10 mg Q4HPRN PRN IV 12/26/24 18:30 12/28/24 00:13 10 MG Purified Water 300 ml Q4HR GT 12/27/24 10:00 12/28/24 05:43 300 ML Carvedilol 6.25 mg Q12HR NG 12/27/24 22:00 12/27/24 21:54 6.25 MG Insulin Glargine 8 units HS SC 12/27/24 22:00 12/27/24 22:19 8 UNITS Dextrose 1,000 ml @ 100 mls/hr Q10H IV 12/28/24 10:15 UNV Dopamine HCl/ Dextrose 250 ml @ 6.54 mls/hr Q24H IV 12/28/24 10:15 UNV Examination: LUNGS:Normal, CVS:Normal, MSK:Normal laboratory and microbiology Laboratory Tests 12/28/24 03:15 Test 12/28/24 03:15 Range/Units Serum Glucose 199 #H 74-106 mg/dL Microbiology Date/Time Source Procedure Growth Status 12/24/24 10:22 Blood Blood Culture - Preliminary NO GROWTH AFTER 72 HOURS OF INCUBATION. Resulted 12/22/24 17:11 Urine - [place]ung [place] Urine Culture - Final Complete 12/22/24 11:30 Nose MRSA Screen - Final Complete Problem List/Assessment/Plan Problem List/Assessment/Plan Acute kidney injury superimposed Chronic Kidney Disease secondary hemodynamic mediated, FeNa < 1% Acute respiratory failure, patient intubated on ventilator Multifocal pneumonia Congestive heart failure, ejection fraction 40% Hypokalemia Hypernatremia due to aggressive diuresis Septic shock Recommendations Kidney function is improving Increased urine output Leung catheter Strict I&Os Hold diuretics IVF D5W at 100 cc/hour Low-dose dopamine Free water down NG tube KCL replacement IV antibiotics We will continue to follow Plan discussed with: Other (Nurse) My Orders My Orders Orders - CARO HARRIS MD Procedure Category Date Status Time D5w 5% (Dextrose 5%) PHA 12/28/24 Logged 10:15 Dopamine 1600mcg/Ml PHA 12/28/24 Logged D5W 10:15 Dietary Evaluation Review Comments: 1) EN Glucerna 1.2 Adolfo @ 65ml/hr, Start @ 30ml/hr increase 10ml/hr Q4H until goal is reached. water flush 50ml Q4H if allowed. 2) Consider TPN/PN if NPO>7 days 3) Advance diet as medically feasible 4) Continue current plan of care Expected Outcomes/Goals: Pt will meet >75% estimated needs Fu 2-3 days CC Plasma Assessment Blood Product Administration S: [id number] CARO HARRIS MD Dec 28, 2024 10:11
--- NOTE | 2024-12-28 10:23 | DVHPN2 ---
Assessment/Plan Assessment/Plan ICU note 59 yo M with IDDM HTN admitted for AMS, had acute hypoxic respiratory failure and was intubated and placed on mechanical ventilation. concern for MM, had HD with renal recovery. seen by me today during rounds, worsening hypernatremia. restart d5w. no BM, stomach more distended. transition sedation to prop and versed. titrate down fentanyl when able. miralax senna and reglan. hold tlc for now Physical exam Intubated, sedated on mechanical ventilation corneal, gag and cough present PERLLA mechanical breath sounds s1 s2 rrr abdomen soft LE edema Labs EKG imaging reviewed cultures NGTD Assessment and plan acute hypoxic respiratory failure req mechanical ventilation multifocal PNA gp vs gn acute systolic heart failure HFmrEF septic shock RYAN VMN on CKD IDDM HTN pancytopenia type 2 OH demand ischemia hypernatremia c/w mechanical ventilation maintain spo2 >94% c/w pressors maintain MAP >65 c/w sedation maintain RAAS -2 daily SAT SBT c/w lasix maintain net -500 to 1 L c/w vanc and félix and micafungin c/w hydrocortisone hemonc consult, concern for MM c/w FWF start d5w keep glucose between 150-200 keep K 4, Ph 3, Mg 2 lines ETT NGT TLC a line - removed leung diet jevity dvt ppx lovenox gi ppx protonix code status full code goals of care curative critical care time 60 minutes Plan discussed with: Other My Orders Orders - WILLAM PEARL MD Procedure Category Date Status Time Carvedilol Tablet PHA 12/27/24 In Process (Coreg Tablet) 22:00 Insulin Lantus PHA 12/27/24 In Process (Glargine) (Lantus) 22:00 Discontinue A-Line ORDERS 12/27/24 Transmitted 16:41 Date of Service: Dec 28, 2024 Billing Provider: WILLAM PEARL MD Common Visit Codes: [id number] CARE 30-74 MIN WILLAM PEARL MD Dec 28, 2024 10:23
[2024-12-28] MEDS: hydroCHLOROthiazide 25 MG TAB PO ONE (10:30)
[2024-12-28] MEDS: D5W 5% 1,000 ML IV SCH (11:21)
[2024-12-28] MEDS: DOPamine 1600MCG/ML D5W 250 ML IV SCH (12:24)
[2024-12-28] MEDS: VANCOMYCIN 500mg/100mL 100 ML IV ONE (14:20)
[2024-12-28] MEDS: POLYETHYLENE GLYCOL 17 GM PWDR PO ONE (14:21)
[2024-12-28] MEDS: SENNA 8.6 MG TAB PO ONE (14:21)
[2024-12-28] MEDS: hydrALAZINE HCL 20 MG/ML VL IV SCH (14:22)
[2024-12-28] MEDS: MEROPENEM 1GM IVPB 50 ML IV SCH (17:15)
--- NOTE | 2024-12-28 18:30 | DVHPN2 ---
Consult Progress Note Subjective Other Systems: Patient in normal sinus rhythm on excellence leader. Remains chemically sedated and mechanically ventilated. Objective vital signs Vital Sign Date Time Temp Pulse Resp B/P (MAP) Pulse Ox O2 Delivery O2 Flow Rate FiO2 12/28/24 17:12 166/77 12/28/24 16:02 94 25 94 30 12/28/24 15:42 Mechanical Ventilator+ 12/28/24 15:30 99.3 210.7 Total Intake and Output 12/27/24 12/27/24 12/28/24 15:00 23:00 07:00 Intake Total 445.0919 ml 1152.578 ml 1677.155 ml Output Total 1900 ml 1950 ml Balance 445.0919 ml -747.422 ml -272.845 ml medications Current Medications Medications Dose Ordered Sig/Teddy Route Start Time Stop Time Status Last Admin Dose Admin Sodium Chloride 10 ml Q8HR IV 12/21/24 22:00 12/28/24 14:23 10 ML Acetaminophen 650 mg Q6HP PRN PO 12/21/24 17:30 12/22/24 13:57 650 MG Ondansetron HCl 4 mg Q4HP PRN IV 12/21/24 17:30 Pantoprazole Sodium 40 mg BID IV 12/21/24 22:00 12/28/24 09:46 40 MG Diagnostic Test (Pha) 1 strip Q6HR 12/21/24 18:00 12/28/24 17:11 1 STRIP Insulin Human Regular Q6HR SC 12/21/24 18:00 12/28/24 17:34 3 UNITS Dextrose 50 ml UD PRN IV 12/21/24 17:45 12/22/24 07:59 50 ML Midazolam HCl 50 ml @ 1 mls/hr Q24H IV 12/21/24 17:45 12/28/24 01:59 5 MLS/HR Vancomycin HCl 0 ml @ 0 mls/hr UD IV 12/21/24 18:30 Fentanyl Citrate 250 ml @ 2.5 mls/hr Q24H IV 12/22/24 02:15 12/28/24 05:17 17.5 MLS/HR Micafungin Sodium 100 mg/Sodium Chloride 100 ml @ 100 mls/hr DAILY IV 12/23/24 10:00 12/28/24 09:47 100 MLS/HR Albuterol 2.5 mg Q6HR NEB 12/22/24 12:00 12/28/24 11:55 2.5 MG Ipratropium [place] 0.5 mg Q6HR NEB 12/22/24 12:00 12/28/24 11:55 0.5 MG Acetylcysteine 100 mg Q6HR NEB 12/22/24 12:00 12/28/24 11:55 100 MG Albumin Human 100 ml @ 100 mls/hr PRN PRN IV 12/24/24 03:15 12/24/24 03:50 100 MLS/HR Enteral Nutritional Formula 1,000 ml 50ML/HR GT 12/26/24 08:45 12/27/24 15:44 1,000 ML Vasopressin 20 units/Sodium Chloride 100 ml @ 9 mls/hr Q11H7M IV 12/26/24 16:30 Propofol 100 ml @ 2.553 mls/ hr Q24H IV 12/26/24 18:00 12/28/24 14:36 15.318 MLS/HR Labetalol HCl 10 mg Q4HPRN PRN IV 12/26/24 18:30 12/28/24 12:25 10 MG Purified Water 300 ml Q4HR GT 12/27/24 10:00 12/28/24 14:22 300 ML Insulin Glargine 8 units HS SC 12/27/24 22:00 12/27/24 22:19 8 UNITS Dextrose 1,000 ml @ 100 mls/hr Q10H IV 12/28/24 10:15 12/28/24 11:21 100 MLS/HR Dopamine HCl/ Dextrose 250 ml @ 6.54 mls/hr Q24H IV 12/28/24 10:15 12/28/24 12:24 6.54 MLS/HR Carvedilol 12.5 mg Q12HR NG 12/28/24 22:00 Hydrochlorothiazide 25 mg DAILY PO 12/29/24 10:00 Polyethylene Glycol 17 gm DAILY PO 12/29/24 10:00 Sennosides 17.2 mg HS PO 12/29/24 22:00 Hydralazine HCl 10 mg Q4HR IV 12/28/24 14:00 12/28/24 17:12 10 MG Meropenem 50 ml @ 17 mls/hr Q8H IV 12/28/24 18:00 12/28/24 17:15 17 MLS/HR Examination: GENERAL:Abnormal, LUNGS:Abnormal (Mechanically ventilated), CVS:Normal, NEURO:Abnormal (Chemically sedated) laboratory and microbiology Laboratory Tests 12/28/24 03:15 Test 12/28/24 03:15 Range/Units Serum Glucose 199 #H 74-106 mg/dL Problem List/Assessment/Plan Problem List/Assessment/Plan Septic shock with multifocal pneumonia Acute hypoxic respiratory failure Acute renal-cardiac syndrome type III NSTEMI, likely type 2 secondary to above Newly diagnosed HFmrEF with LVEF at 40-45% Hx of hypertension Insulin-dependent diabetes mellitus Acute anemia s/p PRBCs x 2 units, ?GI bleed RYAN with likely underlined CKD Thrombocytopenia Plan/Recommendation (Dr. Cortez) Transthoracic echocardiogram revealed EF 40-45% RVSP 45 mmHg. Likely NSTEMI Type II given sepsis, RYAN, and hemodynamic derangement. Continue GDMT as tolerated by BP and renal function. Continue ABX therapy per primary care team. There is no further inpatient cardiac workup indicated at this time. Please reconsult if needed. Thank you for allowing us to participate in this patient's care. Please call if you have any questions or concerns. Critical Care Time: 30 min. This medical document was created using an electronic medical record system with voice recognition software and computerized dictation system. Although this document has been carefully reviewed, there might still be some phonetic and typographical errors. Occasional wrong-word or ``sound-alike substitutions may have occurred due to the inherent limitations of voice recognition software. These areas are purely typographical due to imperfections of the software programs and do not reflect any compromise in the patient's medical care. Please read the chart carefully and recognize, using context, where these substitutions have occurred. Plan discussed with: Other (Bedside RN) Dietary Evaluation Review Comments: 1) EN Glucerna 1.2 Adolfo @ 65ml/hr, Start @ 30ml/hr increase 10ml/hr Q4H until goal is reached. water flush 50ml Q4H if allowed. 2) Consider TPN/PN if NPO>7 days 3) Advance diet as medically feasible 4) Continue current plan of care Expected Outcomes/Goals: Pt will meet >75% estimated needs Fu 2-3 days CC Plasma Assessment Blood Product Administration S: [id number] Date of Service: Dec 28, 2024 Billing Provider: PATTI CHAVEZ Common Visit Codes: [id number] CARE 30-74 MIN PATTI CHAVEZ Dec 28, 2024 18:30
[2024-12-28] MEDS: CARVEDILOL 3.125 MG TAB NG SCH (21:37)
--- NOTE | 2024-12-28 23:53 | DVHPN2 ---
Progress Note - Dictate Date Seen: Dec 28, 2024 Has the PT tested + for MRSA If YES, has PT been informed?: No Medical Necessity Reason Pt with a Central, PICC or Fol: Yes The following are medically ne: Leung Catheter Reason for leung catheter: Strict I&O Subjective Patient seen and examined at bedside. Sedated, intubated on mechanical ventilator. Overnight events reviewed. vital signs Vital Sign Date Time Temp Pulse Resp B/P (MAP) Pulse Ox O2 Delivery O2 Flow Rate FiO2 12/28/24: 139/71 12/28/24 22:10 85 25 94 30 12/28/24 22:00 Mechanical Ventilator+ 12/28/24 21:15 98.6 209.5 Total Intake and Output 12/27/24 12/27/24 12/28/24 15:00 23:00 07:00 Intake Total 445.0919 ml 1152.578 ml 1677.155 ml Output Total 1900 ml 1950 ml Balance 445.0919 ml -747.422 ml -272.845 ml medications Current Medications Medications Dose Ordered Sig/Teddy Route Start Time Stop Time Status Last Admin Dose Admin Sodium Chloride 10 ml Q8HR IV 12/21/24 22:00 12/28/24 21:33 10 ML Acetaminophen 650 mg Q6HP PRN PO 12/21/24 17:30 12/22/24 13:57 650 MG Ondansetron HCl 4 mg Q4HP PRN IV 12/21/24 17:30 Pantoprazole Sodium 40 mg BID IV 12/21/24 22:00 12/28/24 21:33 40 MG Diagnostic Test (Pha) 1 strip Q6HR 12/21/24 18:00 12/28/24 17:11 1 STRIP Insulin Human Regular Q6HR SC 12/21/24 18:00 12/28/24 17:34 3 UNITS Dextrose 50 ml UD PRN IV 12/21/24 17:45 12/22/24 07:59 50 ML Midazolam HCl 50 ml @ 1 mls/hr Q24H IV 12/21/24 17:45 12/28/24 01:59 5 MLS/HR Vancomycin HCl 0 ml @ 0 mls/hr UD IV 12/21/24 18:30 Fentanyl Citrate 250 ml @ 2.5 mls/hr Q24H IV 12/22/24 02:15 12/28/24 23:25 15 MLS/HR Micafungin Sodium 100 mg/Sodium Chloride 100 ml @ 100 mls/hr DAILY IV 12/23/24 10:00 12/28/24 09:47 100 MLS/HR Albuterol 2.5 mg Q6HR NEB 12/22/24 12:00 12/28/24 18:31 2.5 MG Ipratropium [place] 0.5 mg Q6HR NEB 12/22/24 12:00 12/28/24 18:32 0.5 MG Acetylcysteine 100 mg Q6HR NEB 12/22/24 12:00 12/28/24 18:32 100 MG Albumin Human 100 ml @ 100 mls/hr PRN PRN IV 12/24/24 03:15 12/24/24 03:50 100 MLS/HR Enteral Nutritional Formula 1,000 ml 50ML/HR GT 12/26/24 08:45 12/27/24 15:44 1,000 ML Vasopressin 20 units/Sodium Chloride 100 ml @ 9 mls/hr Q11H7M IV 12/26/24 16:30 Propofol 100 ml @ 2.553 mls/ hr Q24H IV 12/26/24 18:00 12/28/24 21:51 20.424 MLS/HR Labetalol HCl 10 mg Q4HPRN PRN IV 12/26/24 18:30 12/28/24 12:25 10 MG Purified Water 300 ml Q4HR GT 12/27/24 10:00 12/28/24 18:00 300 ML Insulin Glargine 8 units HS SC 12/27/24 22:00 12/28/24 21:33 8 UNITS Dextrose 1,000 ml @ 100 mls/hr Q10H IV 12/28/24 10:15 12/28/24 21:10 100 MLS/HR Dopamine HCl/ Dextrose 250 ml @ 6.54 mls/hr Q24H IV 12/28/24 10:15 12/28/24 12:24 6.54 MLS/HR Carvedilol 12.5 mg Q12HR NG 12/28/24 22:00 12/28/24 21:37 12.5 MG Hydrochlorothiazide 25 mg DAILY PO 12/29/24 10:00 Polyethylene Glycol 17 gm DAILY PO 12/29/24 10:00 Sennosides 17.2 mg HS PO 12/29/24 22:00 Hydralazine HCl 10 mg Q4HR IV 12/28/24 14:00 12/28/24 17:12 10 MG Meropenem 50 ml @ 17 mls/hr Q8H IV 12/28/24 18:00 12/28/24 17:15 17 MLS/HR objective Gen.: Patient lying in bed in medical ICU. Sedated, intubated on mechanical ventilator. Head: Normocephalic, atraumatic. Eyes: PERRLA. Ears: Normal external anatomy. Throat: Endotracheal tube and orogastric tube in place. Neck: Supple, trachea midline. Chest: Transmitted breath sounds bilaterally. Decreased air entry bilaterally. No wheezing. Bibasilar crackles. Cardiovascular: Positive S1, positive S2. Regular rate and rhythm. Abdomen: Positive bowel sounds in all 4 quadrants. Soft, nontender, nondistended. : Leung in place. Normal external genitalia. Rectal: Deferred. Skin: Warm, dry. Intact. Extremities: 2+ radial pulses bilaterally. No lower extremity edema. Neuro: Sedated. laboratory and microbiology Laboratory Tests 12/28/24 03:15 Test 12/28/24 03:15 Range/Units Serum Glucose 199 #H 74-106 mg/dL Assessment/Plan Impression: Acute hypoxic respiratory failure On mechanical ventilator Severe sepsis Severe anemia Events: Vent support On AC mode; RR 20, VT 550,PEEP 6, FiO2 30% Sedated on Propofol, Versed, Fentanyl ABG reviewed, notable for alkalemia CXR reviewed, demonstrates slight interval improvement in diffuse bilateral prominence of the pulmonary vasculature. No effusion or pneumothorax. Continue antibiotics Continue bronchodilators Continue antifungals Tube feeds for nutritional support Monitor hemoglobin Taper sedation as tolerated CPAP trial Labs and imaging reviewed. Rest of plan as noted below. Plan: s/p intubation on mechanical ventilator. On AC mode; RR 20, VT 550,PEEP 6, FiO2 30% Titrate FIO2 to keep O2 saturation above 90%. VAP bundle. Daily ABG and CXR while intubated Sedate for ventilator synchrony Continue bronchodilators. Continue antibiotics. F/u cultures. Blood cultures show no growth after 72 hours Urine cultures show no growth after 48 hours Pressors if necessary for hemodynamic support Titrate to keep mean arterial pressure greater than 65 mmHg. Monitor renal function Monitor electrolytes. Supplement as necessary. Monitor ins and outs. Maintain euvolemia. GI prophylaxis. DVT prophylaxis. Prognosis: Poor given patient's multiple co-morbidities. Condition: Critical Rest of plan per hospitalist and other consultants. A total of 35 minutes of critical care time was spent reviewing the patient record, examining the patient, making a diagnostic and therapeutic plan, discussing this plan with the medical personnel, following up on diagnostic studies and following the patient for clinical stability excluding any and all procedures. At least 50% of this time was spent in direct, [id number] contact. Thank you, LYN Degroot, for allowing me to participate in this patient's care. Further recommendations will depend on the patient's clinical course. Please do not hesitate to contact me if you have any questions or concerns. This medical document was created using an electronic medical record system with [employer] dictation system. Although these documentations are being carefully reviewed, there may still be some phonetic and typographical changes. The errors are purely typographical, due to imperfection on the software program, and do not reflect any compromise in the patient's medical care. Dietary Evaluation Review Comments: 1) EN Glucerna 1.2 Adolfo @ 65ml/hr, Start @ 30ml/hr increase 10ml/hr Q4H until goal is reached. water flush 50ml Q4H if allowed. 2) Consider TPN/PN if NPO>7 days 3) Advance diet as medically feasible 4) Continue current plan of care Expected Outcomes/Goals: Pt will meet >75% estimated needs Fu 2-3 days Plan discussed with: Other (ALLEN Recinos) Critical Care Time(min): 35 CC Plasma Assessment Blood Product Administration S: [id number] GISELE HERRERA MD Dec 28, 2024 23:53
[2024-12-29] VITALS (68 sets, daily range): BP systolic 101–155; BP diastolic 44–72; PULSE 76–83; RESP 12–26; TEMP 97.5–99.5; O2SAT 92–98
[2024-12-29 04:20] LABS: Anion Gap 13 (5-15)
[2024-12-29 04:25] LABS: BUN/Creatinine Ratio 48.6 (10.0-20.0); Hematocrit 26.6 % (41.0-53.0); Hemoglobin 8.7 g/dL (13.5-17.5); Mean Corpuscular Hgb Conc. 32.6 g/dL (32.0-36.0); Mean Corpuscular Volume 95.1 fL (80.0-100.0); Platelet Count (auto) 89 10^3/uL (140-450); Red Blood Cells 2.79 10^6/uL (4.5-5.90); Red Cell Distribution Width 22.9 % (11.8-14.3); White Blood Cell 11.2 10^3/uL (4.4-10.8)
[2024-12-29 04:32] LABS: Basophils % (manual) 0 (0.0-2.0); Blast Cells 0; Eosinophils % (manual) 0 (0-7); Myelocytes % 0; Promyelocytes % 0; Reactive Lymphocytes 0
[2024-12-29 04:33] LABS: Blood Urea Nitrogen 53 mg/dL (9-23); Calcium 10.8 mg/dL (8.7-10.4); Carbon Dioxide 36 mmol/L (20-31); Chloride 109 mmol/L (98-107); Glucose 169 mg/dL (74-106); Potassium 3.5 mmol/L (3.5-5.1); Sodium 158 mmol/L (136-145)
[2024-12-29 05:16] LABS: Band Neutrophils % (manual) 8; Lymphocytes % (manual) 9 (10.0-50.0); Metamyelocytes % 2; Monocytes % (manual) 3 (0-12)
[2024-12-29 05:17] LABS: Anisocytosis Slight; Platelet Estimate Decreased; Rouleau Present
[2024-12-29 07:28] LABS: Base Excess 11.4 mmol/L (-2.0-3.0)
[2024-12-29] MEDS ORDERED: BISACODYL 10 MG RECT SUPP PR PRN (09:15)
--- NOTE | 2024-12-29 09:24 | DVHPN2 ---
Subjective Intubated and sedated Reviewed: Care Plan, H&P, Labs, Medications Changes from previous H/P or p: No Changes General: Per HPI Objective Vitals Vital Signs Date Time Temp Pulse Resp B/P (MAP) Pulse Ox O2 Delivery O2 Flow Rate FiO2 12/29/24 09:11 79 23 101/44 (63) 94 30 12/29/24 07:00 99.0 210.2 12/29/24 06:00 Mechanical Ventilator+ Intake/Output Intake and Output 12/29/24 07:00 Intake Total 3775.8 ml Output Total 4650 ml Balance -874.2 ml Intake Oral 960 ml IV Total 2615.8 ml Tube Feeding 200 ml Output Urine Total 4650 ml General Appearance: moderate distress, Other (Intubated and sedated) HEENT: Atraumatic, PERRLA Lungs: Other (Mechanical ventilation. Rhonchi) Cardiovascular: Normal S1, Normal S2 Abdomen: Normal bowel sounds, Soft, No tenderness Back: Flank Tenderness, Midline Tenderness Musculoskeletal: Other (No motor movement) Neuro: Other (Unable to assess) Skin: Dry, Intact, Wounds (See nurse notes and pictures) Psych/Mental Status: Other (Unable to assess) Medications Current Medications Medications Dose Ordered Sig/Teddy Route Start Time Stop Time Status Last Admin Dose Admin Sodium Chloride 10 ml Q8HR IV 12/21/24 22:00 12/29/24 05:30 10 ML Acetaminophen 650 mg Q6HP PRN PO 12/21/24 17:30 12/22/24 13:57 650 MG Ondansetron HCl 4 mg Q4HP PRN IV 12/21/24 17:30 Pantoprazole Sodium 40 mg BID IV 12/21/24 22:00 12/28/24 21:33 40 MG Diagnostic Test (Pha) 1 strip Q6HR 12/21/24 18:00 12/29/24 05:30 1 STRIP Insulin Human Regular Q6HR SC 12/21/24 18:00 12/29/24 05:33 2 UNITS Dextrose 50 ml UD PRN IV 12/21/24 17:45 12/22/24 07:59 50 ML Midazolam HCl 50 ml @ 1 mls/hr Q24H IV 12/21/24 17:45 12/28/24 01:59 5 MLS/HR Vancomycin HCl 0 ml @ 0 mls/hr UD IV 12/21/24 18:30 Fentanyl Citrate 250 ml @ 2.5 mls/hr Q24H IV 12/22/24 02:15 12/28/24 23:25 15 MLS/HR Micafungin Sodium 100 mg/Sodium Chloride 100 ml @ 100 mls/hr DAILY IV 12/23/24 10:00 12/28/24 09:47 100 MLS/HR Albuterol 2.5 mg Q6HR NEB 12/22/24 12:00 12/29/24 06:25 2.5 MG Ipratropium [place] 0.5 mg Q6HR NEB 12/22/24 12:00 12/29/24 06:25 0.5 MG Acetylcysteine 100 mg Q6HR NEB 12/22/24 12:00 12/29/24 06:25 100 MG Albumin Human 100 ml @ 100 mls/hr PRN PRN IV 12/24/24 03:15 12/24/24 03:50 100 MLS/HR Enteral Nutritional Formula 1,000 ml 50ML/HR GT 12/26/24 08:45 12/27/24 15:44 1,000 ML Vasopressin 20 units/Sodium Chloride 100 ml @ 9 mls/hr Q11H7M IV 12/26/24 16:30 Propofol 100 ml @ 2.553 mls/ hr Q24H IV 12/26/24 18:00 12/29/24 08:36 20.424 MLS/HR Labetalol HCl 10 mg Q4HPRN PRN IV 12/26/24 18:30 12/28/24 12:25 10 MG Purified Water 300 ml Q4HR GT 12/27/24 10:00 12/29/24 05:30 300 ML Insulin Glargine 8 units HS SC 12/27/24 22:00 12/28/24 21:33 8 UNITS Dextrose 1,000 ml @ 100 mls/hr Q10H IV 12/28/24 10:15 12/29/24 07:30 100 MLS/HR Dopamine HCl/ Dextrose 250 ml @ 6.54 mls/hr Q24H IV 12/28/24 10:15 12/28/24 12:24 6.54 MLS/HR Carvedilol 12.5 mg Q12HR NG 12/28/24 22:00 12/28/24 21:37 12.5 MG Hydrochlorothiazide 25 mg DAILY PO 12/29/24 10:00 Polyethylene Glycol 17 gm DAILY PO 12/29/24 10:00 Sennosides 17.2 mg HS PO 12/29/24 22:00 Hydralazine HCl 10 mg Q4HR IV 12/28/24 14:00 12/29/24 05:30 10 MG Meropenem 50 ml @ 17 mls/hr Q8H IV 12/28/24 18:00 12/29/24 02:00 17 MLS/HR Laboratory Results Laboratory Tests 12/29/24 03:25 Chemistry Test 12/29/24 03:25 Calcium Level 10.8 mg/dL (8.7-10.4) H Urinalysis Test 12/21/24 12:07 Urine Color Light-yellow (Yellow) Urine Clarity Clear (Clear) Urine pH 5.5 (5.0-9.0) Urine Specific [place] 1.016 (1.001-1.035) Urine Protein 2+ (Negative) H Urine Ketones Negative (Negative) Urine Blood 1+ /uL (Negative) H Urine Nitrite Negative (Negative) Urine Bilirubin Negative (Negative) Urine Urobilinogen Normal mg/dL (Negative) Urine Leukocyte Esterase Negative /uL (Negative) Urine RBC 4 /hpf (0 - 3) Urine Microscopic WBC 2 /HPF (0-3) Urine Squamous Epithelial Cells None seen /hpf (<5) Urine Bacteria Few /hpf (None Seen) H Urine Creatinine 125.39 mg/dL (30.0-125.0) H Urine Sodium < 10 mmol/L (40-220) L Urine Glucose Normal mg/dL (Normal) Blood Gas Results Test 12/29/24 07:21 Arterial Blood pH 7.495 (7.350-7.450) FiO2 % 30.0 Microbiology Microbiology Date/Time Source Procedure Growth Status 12/24/24 10:22 Blood Blood Culture - Preliminary NO GROWTH AFTER 72 HOURS OF INCUBATION. Resulted 12/22/24 17:11 Urine - [place] Urine Culture - Final Complete 12/22/24 11:30 Nose MRSA Screen - Final Complete Labs and/or images reviewed: Labs reviewed by me, Image(s) reviewed by me Assessment/Plan Assessment/Plan Impression: -acute hypoxic respiratory failure -multifocal pneumonia , community-acquired, probable Gram-positive/Gram-negative etiology -severe sepsis with shock -acute kidney injury, hemodynamically mediated. Probable underlying CKD -nicotine dependence -diabetes mellitus -primary hypertension -pancytopenia -NSTEMI type 2 -transaminitis -diabetes mellitus, periods of hypoglycemia Plan: Events: Renal function with marked improvement. Off vasopressors. Hypernatremic. -Continue free water and D5W. -CPAP trial tomorrow -Continue hydrocortisone 100 mg IV b.i.d. -vent settings: A.c. 20, tidal volume 550, decrease PEEP 5, FiO2 30% -antibiotic therapy: Vancomycin, meropenem -PUD, DVT prophylaxis -consultations: Cardiology, Nephrology, Hematology -continue current ventilator settings -repeat labs, chest x-ray, ABG in a.m. Critical care time spent with patient discussing and formulating plan of care: 90 minutes. This does not include time spent performing procedures. This medical document was created using an electronic medical record system with [employer] dictation system. Although this document has been carefully reviewed, there may still be some phonetic and typographical errors. These areas are purely typographical due to imperfections of the software programs, and do not reflect any compromise in the patient's medical care. Plan discussed with: Patient, Other (RN) My Orders Orders - TESSIE MASON [employer]OCI[employer] PROFESS[employer] COMM[employer]ICATION Procedure Category Date Status Time Meropenem 1gm Ivpb PHA 12/28/24 In Process (Merrem 1gm/ Ns) 18:00 Abg W/ Co-Ox RT 12/29/24 Logged 06:00 Basic Metabolic Panel LAB 12/30/24 Verified 05:00 Basic Metabolic Panel LAB 12/31/24 Verified 05:00 Basic Metabolic Panel LAB 01/01/25 Verified 05:00 Complete Blood Count LAB 12/30/24 Verified 05:00 Complete Blood Count LAB 12/31/24 Verified 05:00 Complete Blood Count LAB 01/01/25 Verified 05:00 Chest Portable XY 12/30/24 Logged 05:00 Chest Portable XY 12/31/24 Logged 05:00 Chest Portable XY 01/01/25 Logged 05:00 Abg W/ Co-Ox RT 12/30/24 Logged 05:00 Abg W/ Co-Ox RT 12/31/24 Logged 05:00 Abg W/ Co-Ox RT 01/01/25 Logged 05:00 Date of Service: Dec 29, 2024 Billing Provider: TESSIE MASON NP Common Visit Codes: [id number] CARE 30-74 MIN TESSIE MASON NP Dec 29, 2024 09:24
[2024-12-29] MEDS: hydroCHLOROthiazide 25 MG TAB PO SCH (10:00)
[2024-12-29] MEDS ORDERED: VANCOMYCIN 1.5GM/300ML 300 ML IV ONE (10:00)
[2024-12-29] MEDS: POLYETHYLENE GLYCOL 17 GM PWDR PO SCH (10:34)
[2024-12-29] MEDS: BISACODYL 10 MG RECT SUPP PR ONE (10:43)
[2024-12-29] MEDS: POTASSIUM EFFERVESENT TAB 25 MEQ PO ONE (10:43)
[2024-12-29] MEDS: VANCOMYCIN 1GM/250ML KIT 250 ML IV ONE (11:54)
--- NOTE | 2024-12-29 12:50 | DVHPN2 ---
Progress Note Date Seen: Dec 29, 2024 Has the PT tested + for MRSA If YES, has PT been informed?: No Medical Necessity Reason Pt with a Central, PICC or Fol: Yes The following are medically ne: Leung Catheter Reason for leung catheter: Strict I&O Subjective Review of Systems: RESPIRATORY:Abnormal Objective vital signs Vital Sign Date Time Temp Pulse Resp B/P (MAP) Pulse Ox O2 Delivery O2 Flow Rate FiO2 12/29/24 11:41 75 120/58 12/29/24 11:24 24 96 30 12/29/24 07:00 99.0 210.2 12/29/24 06:00 Mechanical Ventilator+ Total Intake and Output 12/28/24 12/28/24 12/29/24 15:00 23:00 07:00 Intake Total 638.0 ml 1082.6 ml 2055.2 ml Output Total 2700 ml 1950 ml Balance 638.0 ml -1617.4 ml 105.2 ml medications Current Medications Medications Dose Ordered Sig/Teddy Route Start Time Stop Time Status Last Admin Dose Admin Sodium Chloride 10 ml Q8HR IV 12/21/24 22:00 12/29/24 05:30 10 ML Acetaminophen 650 mg Q6HP PRN PO 12/21/24 17:30 12/22/24 13:57 650 MG Ondansetron HCl 4 mg Q4HP PRN IV 12/21/24 17:30 Pantoprazole Sodium 40 mg BID IV 12/21/24 22:00 12/29/24 10:34 40 MG Diagnostic Test (Pha) 1 strip Q6HR 12/21/24 18:00 12/29/24 11:42 1 STRIP Insulin Human Regular Q6HR SC 12/21/24 18:00 12/29/24 05:33 2 UNITS Dextrose 50 ml UD PRN IV 12/21/24 17:45 12/22/24 07:59 50 ML Midazolam HCl 50 ml @ 1 mls/hr Q24H IV 12/21/24 17:45 12/28/24 01:59 5 MLS/HR Vancomycin HCl 0 ml @ 0 mls/hr UD IV 12/21/24 18:30 Fentanyl Citrate 250 ml @ 2.5 mls/hr Q24H IV 12/22/24 02:15 12/28/24 23:25 15 MLS/HR Albuterol 2.5 mg Q6HR NEB 12/22/24 12:00 12/29/24 11:25 2.5 MG Ipratropium [place] 0.5 mg Q6HR NEB 12/22/24 12:00 12/29/24 11:24 0.5 MG Acetylcysteine 100 mg Q6HR NEB 12/22/24 12:00 12/29/24 11:25 100 MG Albumin Human 100 ml @ 100 mls/hr PRN PRN IV 12/24/24 03:15 12/24/24 03:50 100 MLS/HR Enteral Nutritional Formula 1,000 ml 50ML/HR GT 12/26/24 08:45 12/29/24 11:53 1,000 ML Vasopressin 20 units/Sodium Chloride 100 ml @ 9 mls/hr Q11H7M IV 12/26/24 16:30 Propofol 100 ml @ 2.553 mls/ hr Q24H IV 12/26/24 18:00 12/29/24 08:36 20.424 MLS/HR Labetalol HCl 10 mg Q4HPRN PRN IV 12/26/24 18:30 12/28/24 12:25 10 MG Purified Water 300 ml Q4HR GT 12/27/24 10:00 12/29/24 10:00 300 ML Insulin Glargine 8 units HS SC 12/27/24 22:00 12/28/24 21:33 8 UNITS Dextrose 1,000 ml @ 100 mls/hr Q10H IV 12/28/24 10:15 12/29/24 09:18 100 MLS/HR Dopamine HCl/ Dextrose 250 ml @ 6.54 mls/hr Q24H IV 12/28/24 10:15 12/28/24 12:24 6.54 MLS/HR Carvedilol 12.5 mg Q12HR NG 12/28/24 22:00 12/29/24 11:41 12.5 MG Hydrochlorothiazide 25 mg DAILY PO 12/29/24 10:00 Polyethylene Glycol 17 gm DAILY PO 12/29/24 10:00 12/29/24 10:34 17 GM Sennosides 17.2 mg HS PO 12/29/24 22:00 Hydralazine HCl 10 mg Q4HR IV 12/28/24 14:00 12/29/24 05:30 10 MG Meropenem 50 ml @ 17 mls/hr Q8H IV 12/28/24 18:00 12/29/24 10:34 17 MLS/HR Bisacodyl 10 mg DAILYP PRN ID 12/29/24 09:15 Examination: GENERAL:Abnormal, ABDOMEN:Abnormal laboratory and microbiology Laboratory Tests 12/29/24 03:25 Test 12/29/24 03:25 Range/Units Serum Glucose 169 H 74-106 mg/dL Microbiology Date/Time Source Procedure Growth Status 12/24/24 10:22 Blood Blood Culture - Final NO GROWTH AFTER 5 DAYS OF INCUBATION. Complete 12/22/24 17:11 Urine - [place] Urine Culture - Final Complete 12/22/24 11:30 Nose MRSA Screen - Final Complete Problem List/Assessment/Plan Problem List/Assessment/Plan Acute kidney injury superimposed Chronic Kidney Disease secondary hemodynamic mediated, FeNa < 1% Acute respiratory failure, patient intubated on ventilator Multifocal pneumonia Congestive heart failure, ejection fraction 40% Hypokalemia Hypernatremia due to aggressive diuresis Septic shock Kidney function is improving Increased urine output Leung catheter Strict I&Os Hold diuretics IVF D5W at 100 cc/hour ( started today Low-dose dopamine Free water down NG tube KCL replacement IV antibiotics We will continue to follow Plan discussed with: Other Dietary Evaluation Review Comments: 1) EN Glucerna 1.2 Adolfo @ 65ml/hr, Start @ 30ml/hr increase 10ml/hr Q4H until goal is reached. water flush 50ml Q4H if allowed. 2) Consider TPN/PN if NPO>7 days 3) Advance diet as medically feasible 4) Continue current plan of care Expected Outcomes/Goals: Pt will meet >75% estimated needs Fu 2-3 days Critical Care Time (mins): 40 CC Plasma Assessment Blood Product Administration S: [id number] MICHELLE HALL MD Dec 29, 2024 12:50
[2024-12-29] MEDS: SENNA 8.6 MG TAB PO SCH (22:01)
[2024-12-30] VITALS (105 sets, daily range): BP systolic 87–163; BP diastolic 46–74; PULSE 62–87; RESP 13–28; TEMP 97.7–99.7; O2SAT 93–100
[2024-12-30 03:58] LABS: Potassium 3.6 mmol/L (3.5-5.1)
[2024-12-30 03:59] LABS: Anion Gap 11 (5-15)
[2024-12-30 04:04] LABS: BUN/Creatinine Ratio 45.9 (10.0-20.0)
[2024-12-30 04:05] LABS: Blood Urea Nitrogen 45 mg/dL (9-23); Calcium 10.9 mg/dL (8.7-10.4); Carbon Dioxide 33 mmol/L (20-31); Chloride 108 mmol/L (98-107); Glucose 155 mg/dL (74-106); Sodium 152 mmol/L (136-145)
[2024-12-30 04:12] LABS: Hematocrit 26.5 % (41.0-53.0); Hemoglobin 8.6 g/dL (13.5-17.5); Mean Corpuscular Hemoglobin 30.6 pg (28.0-32.0); Mean Corpuscular Hgb Conc. 32.4 g/dL (32.0-36.0); Mean Corpuscular Volume 94.5 fL (80.0-100.0); Platelet Count (auto) 100 10^3/uL (140-450); Red Blood Cells 2.81 10^6/uL (4.5-5.90); Red Cell Distribution Width 22.8 % (11.8-14.3); White Blood Cell 10.4 10^3/uL (4.4-10.8)
[2024-12-30 04:16] LABS: Basophils % (manual) 0 (0.0-2.0); Blast Cells 0; Eosinophils % (manual) 0 (0-7); Monocytes % (manual) 0 (0-12); Myelocytes % 0; Promyelocytes % 0; Reactive Lymphocytes 0
[2024-12-30 04:46] LABS: Band Neutrophils % (manual) 6; Lymphocytes % (manual) 6 (10.0-50.0); Metamyelocytes % 2
[2024-12-30 04:47] LABS: Anisocytosis Slight; Platelet Estimate Decreased
--- NOTE | 2024-12-30 05:55 | DVH ---
EXAM: XR Chest, 1 View CLINICAL INDICATION: pna TECHNIQUE: Frontal view of the chest. COMPARISON: XY CHEST PORTABLE on DOS: 12/28/24, XY CHEST PORTABLE on DOS: 12/26/24, XY CHEST PORTABLE on DOS: 12/25/24, XY CHEST PORTABLE on DOS: 12/24/24, XY CHEST XRAY 1 VIEW on DOS: 12/23/24 FINDINGS: LUNGS AND PLEURAL SPACES: Pulmonary venous congestion. No consolidation. No pneumothorax. HEART: Unremarkable. No cardiomegaly. MEDIASTINUM: Unremarkable. Normal mediastinal contour. BONES/JOINTS: Unremarkable. No acute fracture. TUBES, LINES AND DEVICES: Right internal jugular central venous catheter tip in the superior vena c emily. The endotracheal tube (ETT) is in satisfactory position. Enteric tube tip in the stomach. OTHER FINDINGS: . .. IMPRESSION: Pulmonary venous congestion.
--- NOTE | 2024-12-30 09:52 | DVHPN2 ---
Subjective Intubated and sedated Reviewed: Care Plan, H&P, Labs, Medications Changes from previous H/P or p: No Changes General: Per HPI Objective Vitals Vital Signs Date Time Temp Pulse Resp B/P (MAP) Pulse Ox O2 Delivery O2 Flow Rate FiO2 12/30/24 09:15 99.3 79 20 146/63 (90) 94 210.7 12/30/24 08:14 30 12/30/24 08:00 Mechanical Ventilator+ Intake/Output Intake and Output 12/30/24 07:00 Intake Total 4537.079 ml Output Total 3350 ml Balance 1187.079 ml Intake Oral 1060 ml IV Total 2573.079 ml Tube Feeding 304 ml Other 600 ml Output Urine Total 3350 ml # Bowel Movements 1 General Appearance: moderate distress, Other (Intubated and sedated) HEENT: Atraumatic, PERRLA Lungs: Other (Mechanical ventilation. Rhonchi) Cardiovascular: Normal S1, Normal S2 Abdomen: Normal bowel sounds, Soft, No tenderness Back: Flank Tenderness, Midline Tenderness Musculoskeletal: Other (No motor movement) Neuro: Other (Unable to assess) Skin: Dry, Intact, Wounds (See nurse notes and pictures) Psych/Mental Status: Other (Unable to assess) Medications Current Medications Medications Dose Ordered Sig/Teddy Route Start Time Stop Time Status Last Admin Dose Admin Sodium Chloride 10 ml Q8HR IV 12/21/24 22:00 12/30/24 05:29 10 ML Acetaminophen 650 mg Q6HP PRN PO 12/21/24 17:30 12/22/24 13:57 650 MG Ondansetron HCl 4 mg Q4HP PRN IV 12/21/24 17:30 Pantoprazole Sodium 40 mg BID IV 12/21/24 22:00 12/29/24 22:01 40 MG Diagnostic Test (Pha) 1 strip Q6HR 12/21/24 18:00 12/30/24 06:10 1 STRIP Insulin Human Regular Q6HR SC 12/21/24 18:00 12/30/24 00:04 4 UNITS Dextrose 50 ml UD PRN IV 12/21/24 17:45 12/22/24 07:59 50 ML Midazolam HCl 50 ml @ 1 mls/hr Q24H IV 12/21/24 17:45 12/28/24 01:59 5 MLS/HR Vancomycin HCl 0 ml @ 0 mls/hr UD IV 12/21/24 18:30 Fentanyl Citrate 250 ml @ 2.5 mls/hr Q24H IV 12/22/24 02:15 12/29/24 18:31 10 MLS/HR Albuterol 2.5 mg Q6HR NEB 12/22/24 12:00 12/30/24 06:14 2.5 MG Ipratropium [place] 0.5 mg Q6HR NEB 12/22/24 12:00 12/30/24 06:14 0.5 MG Acetylcysteine 100 mg Q6HR NEB 12/22/24 12:00 12/30/24 06:15 100 MG Albumin Human 100 ml @ 100 mls/hr PRN PRN IV 12/24/24 03:15 12/24/24 03:50 100 MLS/HR Enteral Nutritional Formula 1,000 ml 50ML/HR GT 12/26/24 08:45 12/29/24 11:53 1,000 ML Vasopressin 20 units/Sodium Chloride 100 ml @ 9 mls/hr Q11H7M IV 12/26/24 16:30 Propofol 100 ml @ 2.553 mls/ hr Q24H IV 12/26/24 18:00 12/29/24 19:58 15.318 MLS/HR Labetalol HCl 10 mg Q4HPRN PRN IV 12/26/24 18:30 12/28/24 12:25 10 MG Purified Water 300 ml Q4HR GT 12/27/24 10:00 12/30/24 05:22 300 ML Insulin Glargine 8 units HS SC 12/27/24 22:00 12/29/24 22:20 8 UNITS Dextrose 1,000 ml @ 100 mls/hr Q10H IV 12/28/24 10:15 12/30/24 06:18 100 MLS/HR Carvedilol 12.5 mg Q12HR NG 12/28/24 22:00 12/29/24 11:41 12.5 MG Polyethylene Glycol 17 gm DAILY PO 12/29/24 10:00 12/29/24 10:34 17 GM Sennosides 17.2 mg HS PO 12/29/24 22:00 12/29/24 22:01 17.2 MG Hydralazine HCl 10 mg Q4HR IV 12/28/24 14:00 Hold 12/30/24 05:30 10 MG Meropenem 50 ml @ 17 mls/hr Q8H IV 12/28/24 18:00 12/30/24 01:28 17 MLS/HR Bisacodyl 10 mg DAILYP PRN [place] 12/29/24 09:15 Lisinopril 10 mg DAILY GT 12/30/24 10:00 Hydralazine HCl 25 mg Q12HR GT 12/30/24 10:00 Laboratory Results Laboratory Tests 12/30/24 03:00 Chemistry Test 12/30/24 03:00 Calcium Level 10.9 mg/dL (8.7-10.4) H Urinalysis Test 12/21/24 12:07 Urine Color Light-yellow (Yellow) Urine Clarity Clear (Clear) Urine pH 5.5 (5.0-9.0) Urine Specific [place] 1.016 (1.001-1.035) Urine Protein 2+ (Negative) H Urine Ketones Negative (Negative) Urine Blood 1+ /uL (Negative) H Urine Nitrite Negative (Negative) Urine Bilirubin Negative (Negative) Urine Urobilinogen Normal mg/dL (Negative) Urine Leukocyte Esterase Negative /uL (Negative) Urine RBC 4 /hpf (0 - 3) Urine Microscopic WBC 2 /HPF (0-3) Urine Squamous Epithelial Cells None seen /hpf (<5) Urine Bacteria Few /hpf (None Seen) H Urine Creatinine 125.39 mg/dL (30.0-125.0) H Urine Sodium < 10 mmol/L (40-220) L Urine Glucose Normal mg/dL (Normal) Microbiology Microbiology Date/Time Source Procedure Growth Status 12/24/24 10:22 Blood Blood Culture - Final NO GROWTH AFTER 5 DAYS OF INCUBATION. Complete 12/22/24 17:11 Urine - [place] Urine Culture - Final Complete 12/22/24 11:30 Nose MRSA Screen - Final Complete Labs and/or images reviewed: Labs reviewed by me, Image(s) reviewed by me Assessment/Plan Assessment/Plan Impression: -acute hypoxic respiratory failure -multifocal pneumonia , community-acquired, probable Gram-positive/Gram-negative etiology -severe sepsis with shock -acute kidney injury, hemodynamically mediated. Probable underlying CKD -nicotine dependence -diabetes mellitus -primary hypertension -pancytopenia -NSTEMI type 2 -transaminitis -diabetes mellitus, periods of hypoglycemia -? Multiple myeloma Plan: Events: Hypernatremia improving. Patient now off sedation. Spontaneous breathing trial once patient was awake. -Continue free water and D5W. -IV diuresis, potassium replacement -vent settings: A.c. 20, tidal volume 550, decrease PEEP 5, FiO2 30% -antibiotic therapy: Vancomycin, meropenem -PUD, DVT prophylaxis -consultations: Cardiology, Nephrology, Hematology -continue current ventilator settings -repeat labs, chest x-ray, ABG in a.m. Critical care time spent with patient discussing and formulating plan of care: 90 minutes. This does not include time spent performing procedures. This medical document was created using an electronic medical record system with [employer] dictation system. Although this document has been carefully reviewed, there may still be some phonetic and typographical errors. These areas are purely typographical due to imperfections of the software programs, and do not reflect any compromise in the patient's medical care. Plan discussed with: Patient, Other (RN) My Orders Orders - TESSIE MASON NP Procedure Category Date Status Time Lisinopril Tablet PHA 12/30/24 In Process (Zestril Tablet) 10:00 Hydralazine Hcl PHA 12/30/24 In Process Tablet (Apresoline 10:00 Cpap/Sed Vacation Med ORDERS 12/30/24 Transmitted Weaning 08:50 Cpap Trial For Am ORDERS 12/30/24 Transmitted 08:50 Potassium Chl Seth PHA 12/30/24 Transmitted KCL 10:00 Potassium LAB 12/30/24 Transmitted 14:00 Magnesium LAB 12/30/24 Transmitted 14:00 Date of Service: Dec 30, 2024 Billing Provider: TESSIE MASON NP Common Visit Codes: [id number] CARE 30-74 MIN TESSIE MASON NP Dec 30, 2024 09:51
[2024-12-30] MEDS: LISINOPRIL 5 MG TAB GT SCH (09:59)
[2024-12-30] MEDS ORDERED: POTASSIUM CHL 20MEQ/100ML 100 ML IV ONE (10:00)
[2024-12-30] MEDS: hydrALAZINE HCL 25 MG TAB GT SCH (10:00)
[2024-12-30] MEDS: FUROSEMIDE 40 MG/4 ML VIAL IV ONE (10:08)
[2024-12-30] MEDS: POTASSIUM CHL 20MEQ/50ML 50 ML IV ONE (10:09)
[2024-12-30] MEDS: VANCOMYCIN 1.25GM/250ML 250 ML IV ONE (11:56)
--- NOTE | 2024-12-30 13:09 | DVHPN2 ---
Progress Note Date Seen: Dec 30, 2024 Has the PT tested + for MRSA If YES, has PT been informed?: No Medical Necessity Reason Pt with a Central, PICC or Fol: Yes The following are medically ne: Leung Catheter Reason for leung catheter: Strict I&O Objective vital signs Vital Sign Date Time Temp Pulse Resp B/P (MAP) Pulse Ox O2 Delivery O2 Flow Rate FiO2 12/30/24 13:00 99.5 82 24 129/61 (83) 96 211.1 12/30/24 12:00 Mechanical Ventilator+ 30 30 Total Intake and Output 12/29/24 12/29/24 12/30/24 15:00 23:00 07:00 Intake Total 1103.8 ml 1747.272 ml 1686.007 ml Output Total 1550 ml 1800 ml Balance 1103.8 ml 197.272 ml -113.993 ml medications Current Medications Medications Dose Ordered Sig/Teddy Route Start Time Stop Time Status Last Admin Dose Admin Sodium Chloride 10 ml Q8HR IV 12/21/24 22:00 12/30/24 05:29 10 ML Acetaminophen 650 mg Q6HP PRN PO 12/21/24 17:30 12/22/24 13:57 650 MG Ondansetron HCl 4 mg Q4HP PRN IV 12/21/24 17:30 Pantoprazole Sodium 40 mg BID IV 12/21/24 22:00 12/30/24 09:59 40 MG Diagnostic Test (Pha) 1 strip Q6HR 12/21/24 18:00 12/30/24 11:25 1 STRIP Insulin Human Regular Q6HR SC 12/21/24 18:00 12/30/24 11:27 4 UNITS Dextrose 50 ml UD PRN IV 12/21/24 17:45 12/22/24 07:59 50 ML Midazolam HCl 50 ml @ 1 mls/hr Q24H IV 12/21/24 17:45 12/28/24 01:59 5 MLS/HR Vancomycin HCl 0 ml @ 0 mls/hr UD IV 12/21/24 18:30 Fentanyl Citrate 250 ml @ 2.5 mls/hr Q24H IV 12/22/24 02:15 12/29/24 18:31 10 MLS/HR Albuterol 2.5 mg Q6HR NEB 12/22/24 12:00 12/30/24 11:47 2.5 MG Ipratropium [place] 0.5 mg Q6HR NEB 12/22/24 12:00 12/30/24 11:47 0.5 MG Acetylcysteine 100 mg Q6HR NEB 12/22/24 12:00 12/30/24 11:47 100 MG Albumin Human 100 ml @ 100 mls/hr PRN PRN IV 12/24/24 03:15 12/24/24 03:50 100 MLS/HR Enteral Nutritional Formula 1,000 ml 50ML/HR GT 12/26/24 08:45 12/29/24 11:53 1,000 ML Vasopressin 20 units/Sodium Chloride 100 ml @ 9 mls/hr Q11H7M IV 12/26/24 16:30 Propofol 100 ml @ 2.553 mls/ hr Q24H IV 12/26/24 18:00 12/29/24 19:58 15.318 MLS/HR Labetalol HCl 10 mg Q4HPRN PRN IV 12/26/24 18:30 12/28/24 12:25 10 MG Purified Water 300 ml Q4HR GT 12/27/24 10:00 12/30/24 10:00 300 ML Insulin Glargine 8 units HS SC 12/27/24 22:00 12/29/24 22:20 8 UNITS Dextrose 1,000 ml @ 100 mls/hr Q10H IV 12/28/24 10:15 12/30/24 06:18 100 MLS/HR Carvedilol 12.5 mg Q12HR NG 12/28/24 22:00 12/29/24 11:41 12.5 MG Polyethylene Glycol 17 gm DAILY PO 12/29/24 10:00 12/30/24 09:59 17 GM Sennosides 17.2 mg HS PO 12/29/24 22:00 12/29/24 22:01 17.2 MG Meropenem 50 ml @ 17 mls/hr Q8H IV 12/28/24 18:00 12/30/24 09:59 17 MLS/HR Bisacodyl 10 mg DAILYP PRN [place] 12/29/24 09:15 Lisinopril 10 mg DAILY GT 12/30/24 10:00 12/30/24 09:59 10 MG Hydralazine HCl 25 mg Q12HR GT 12/30/24 10:00 12/30/24 10:00 25 MG Examination: GENERAL:Abnormal, CVS:Normal, ABDOMEN:Normal laboratory and microbiology Laboratory Tests 12/30/24 03:00 Test 12/30/24 03:00 Range/Units Serum Glucose 155 H 74-106 mg/dL Microbiology Date/Time Source Procedure Growth Status 12/24/24 10:22 Blood Blood Culture - Final NO GROWTH AFTER 5 DAYS OF INCUBATION. Complete 12/22/24 17:11 Urine - [place] Urine Culture - Final Complete 12/22/24 11:30 Nose MRSA Screen - Final Complete Problem List/Assessment/Plan Problem List/Assessment/Plan Acute kidney injury superimposed Chronic Kidney Disease secondary hemodynamic mediated, FeNa < 1% Acute respiratory failure, patient intubated on ventilator Multifocal pneumonia Congestive heart failure, ejection fraction 40% Hypokalemia Hypernatremia due to aggressive diuresis Septic shock Kidney function is improving Increased urine output Leung catheter Strict I&Os Hold diuretics IVF D5W at 75 cc/hour ( started today Low-dose dopamine Free water down NG tube KCL replacement IV antibiotics no new recs at this time, will sign off at this time Plan discussed with: Other Dietary Evaluation Review Comments: 1) EN Glucerna 1.2 Adolfo @ 65ml/hr, Start @ 30ml/hr increase 10ml/hr Q4H until goal is reached. water flush 50ml Q4H if allowed. 2) Consider TPN/PN if NPO>7 days 3) Advance diet as medically feasible 4) Continue current plan of care Expected Outcomes/Goals: Pt will meet >75% estimated needs Fu 2-3 days CC Plasma Assessment Blood Product Administration S: [id number] MICHELLE HALL MD Dec 30, 2024 13:09
[2024-12-30] MEDS: D5W 5% 1,000 ML IV SCH (13:15)
[2024-12-30 14:29] LABS: Base Excess 5.4 mmol/L (-2.0-3.0)
[2024-12-30 15:00] LABS: Potassium 3.6 mmol/L (3.5-5.1)
[2024-12-30 15:07] LABS: Magnesium 1.9 mg/dL (1.6-2.6)
[2024-12-31] VITALS (105 sets, daily range): BP systolic 81–153; BP diastolic 40–75; PULSE 59–76; RESP 10–26; TEMP 96.6–99.9; O2SAT 95–100
[2024-12-31 03:42] LABS: Hematocrit 26.2 % (41.0-53.0); Hemoglobin 8.5 g/dL (13.5-17.5); Mean Corpuscular Hemoglobin 30.4 pg (28.0-32.0); Mean Corpuscular Hgb Conc. 32.5 g/dL (32.0-36.0); Mean Corpuscular Volume 93.4 fL (80.0-100.0); Platelet Count (auto) 113 10^3/uL (140-450); Red Cell Distribution Width 22.6 % (11.8-14.3); White Blood Cell 10.1 10^3/uL (4.4-10.8)
[2024-12-31 03:51] LABS: Basophils % (manual) 0 (0.0-2.0); Blast Cells 0; Chloride 103 mmol/L (98-107); Myelocytes % 0; Promyelocytes % 0; Reactive Lymphocytes 0
[2024-12-31 03:52] LABS: Anion Gap 10 (5-15); Calcium 9.8 mg/dL (8.7-10.4)
[2024-12-31 03:57] LABS: BUN/Creatinine Ratio 38.6 (10.0-20.0)
[2024-12-31 03:58] LABS: Magnesium 2.1 mg/dL (1.6-2.6)
[2024-12-31 03:59] LABS: Blood Urea Nitrogen 39 mg/dL (9-23); Carbon Dioxide 32 mmol/L (20-31); Glucose 174 mg/dL (74-106); Potassium 3.3 mmol/L (3.5-5.1); Sodium 145 mmol/L (136-145)
--- NOTE | 2024-12-31 04:48 | DVH ---
CHEST RADIOGRAPH Indication: pna Technique: Single frontal view of the chest was obtained Comparison: XY CHEST PORTABLE on DOS: 12/30/24 FINDINGS: Lines and Tubes: There is a right central venous catheter with its tip terminating in the right atriu m. The enteric tube courses below the left hemidiaphragm and the tip extends outside the field of vie w. The endotracheal tube terminates above the karina. Lungs: Bilateral airspace disease. Pleura: No effusion. No pneumothorax. Cardiomediastinal contours: Cardiomegaly. Bones: No acute osseous abnormality. IMPRESSION: 1. Bilateral airspace disease. 2. Cardiomegaly.
[2024-12-31] MEDS: POTASSIUM CHL 20MEQ/50ML 50 ML IV ONE (05:56)
[2024-12-31 06:40] LABS: Anisocytosis Slight; Band Neutrophils % (manual) 2; Eosinophils % (manual) 2 (0-7); Lymphocytes % (manual) 5 (10.0-50.0); Metamyelocytes % 1; Monocytes % (manual) 1 (0-12)
[2024-12-31 06:41] LABS: Platelet Estimate Decreased
[2024-12-31 11:12] LABS: Base Excess 5.4 mmol/L (-2.0-3.0)
[2024-12-31] MEDS: VANCOMYCIN 1.25GM/250ML 250 ML IV SCH (11:43)
[2025-01-01] VITALS (107 sets, daily range): BP systolic 109–182; BP diastolic 50–84; PULSE 60–88; RESP 11–28; TEMP 95.4–100.2; O2SAT 95–100
[2025-01-01 03:56] LABS: Basophils # (auto) 0 10 ^3/uL (0-0.2); Basophils % (auto) 0.2 % (0.0-2.0); Eosinophils # (auto) 0.1 10 ^3/uL (0-0.8); Eosinophils % (auto) 0.6 % (0.0-7.0); Hematocrit 24.2 % (41.0-53.0); Hemoglobin 8.1 g/dL (13.5-17.5); Mean Corpuscular Hgb Conc. 33.4 g/dL (32.0-36.0); Neutrophils # (auto) 7.1 10 ^3/uL (1.6-8.6); Nucleated Red Blood Cells % 0.1 %; Platelet Count (auto) 121 10^3/uL (140-450)
[2025-01-01 03:58] LABS: Lymphocytes # (auto) 1.2 10 ^3/uL (0.4-5.4); Lymphocytes % (auto) 13.7 % (10.0-50.0); Mean Corpuscular Hemoglobin 30.8 pg (28.0-32.0); Mean Corpuscular Volume 92.2 fL (80.0-100.0); Monocytes # (auto) 0.3 10 ^3/uL (0-1.3); Monocytes % (auto) 2.9 % (0.0-12.0); Neutrophils % (auto) 82.6 % (37.0-80.0); Red Blood Cells 2.63 10^6/uL (4.5-5.90); White Blood Cell 8.6 10^3/uL (4.4-10.8)
[2025-01-01 04:06] LABS: Red Cell Distribution Width 22.6 % (11.8-14.3)
[2025-01-01 04:09] LABS: Anion Gap 11 (5-15); Carbon Dioxide 28 mmol/L (20-31); Chloride 103 mmol/L (98-107); Sodium 142 mmol/L (136-145)
[2025-01-01 04:10] LABS: Calcium 9.8 mg/dL (8.7-10.4)
[2025-01-01 04:15] LABS: BUN/Creatinine Ratio 33.7 (10.0-20.0); Blood Urea Nitrogen 32 mg/dL (9-23); Glucose 117 mg/dL (74-106); Potassium 3.2 mmol/L (3.5-5.1)
[2025-01-01] MEDS ORDERED: POTASSIUM CHL 20MEQ/100ML 100 ML IV ONE (05:15)
[2025-01-01] MEDS: POTASSIUM CHL 20MEQ/50ML 50 ML IV ONE ×2 (05:42→06:08)
--- NOTE | 2025-01-01 05:42 | DVH ---
EXAM: XR Chest, 1 View CLINICAL INDICATION: pna TECHNIQUE: Frontal view of the chest. COMPARISON: XY CHEST PORTABLE on DOS: 12/31/24, XY CHEST PORTABLE on DOS: 12/30/24, XY CHEST PORTABLE on DOS: 12/28/24, XY CHEST PORTABLE on DOS: 12/26/24, XY CHEST PORTABLE on DOS: 12/25/24 FINDINGS: LUNGS AND PLEURAL SPACES: Pulmonary congestion and edema. Pneumonia cannot be excluded. No pneumot horax. HEART: Unremarkable. No cardiomegaly. MEDIASTINUM: Unremarkable. Normal mediastinal contour. BONES/JOINTS: Unremarkable. No acute fracture. TUBES, LINES AND DEVICES: Stable tubes and line. OTHER FINDINGS: . .. IMPRESSION: Pulmonary congestion and edema. Pneumonia cannot be excluded.
[2025-01-01 07:00] LABS: Base Excess 3.3 mmol/L (-2.0-3.0)
--- NOTE | 2025-01-01 07:31 | DVHPN2 ---
Subjective Intubated and sedated Reviewed: Care Plan, H&P, Labs, Medications Changes from previous H/P or p: No Changes General: Per HPI Objective Vitals Vital Signs Date Time Temp Pulse Resp B/P (MAP) Pulse Ox O2 Delivery O2 Flow Rate FiO2 01/01/25 06:45 95.4 65 15 148/64 (92) 99 203.7 01/01/25 06:00 Mechanical Ventilator+ 30 30 Intake/Output Intake and Output 01/01/25 07:00 Intake Total 4292.190 ml Output Total 3050 ml Balance 1242.190 ml Intake Oral 2100 ml IV Total 2075.190 ml Tube Feeding 117 ml Output Urine Total 3050 ml General Appearance: mild distress, Other (Intubated and sedated) HEENT: Atraumatic, PERRLA Lungs: Other (Mechanical ventilation. Rhonchi) Cardiovascular: Normal S1, Normal S2 Abdomen: Normal bowel sounds, Soft, No tenderness Back: Flank Tenderness, Midline Tenderness Musculoskeletal: Other (No motor movement) Neuro: Other (Unable to assess) Skin: Dry, Intact, Wounds (See nurse notes and pictures) Psych/Mental Status: Other (Unable to assess) Medications Current Medications Medications Dose Ordered Sig/Teddy Route Start Time Stop Time Status Last Admin Dose Admin Sodium Chloride 10 ml Q8HR IV 12/21/24 22:00 01/01/25 06:08 10 ML Acetaminophen 650 mg Q6HP PRN PO 12/21/24 17:30 12/22/24 13:57 650 MG Ondansetron HCl 4 mg Q4HP PRN IV 12/21/24 17:30 Pantoprazole Sodium 40 mg BID IV 12/21/24 22:00 12/31/24 22:06 40 MG Diagnostic Test (Pha) 1 strip Q6HR 12/21/24 18:00 01/01/25 06:09 1 STRIP Insulin Human Regular Q6HR SC 12/21/24 18:00 01/01/25 00:28 2 UNITS Dextrose 50 ml UD PRN IV 12/21/24 17:45 12/22/24 07:59 50 ML Midazolam HCl 50 ml @ 1 mls/hr Q24H IV 12/21/24 17:45 12/28/24 01:59 5 MLS/HR Vancomycin HCl 0 ml @ 0 mls/hr UD IV 12/21/24 18:30 Fentanyl Citrate 250 ml @ 2.5 mls/hr Q24H IV 12/22/24 02:15 12/30/24 21:58 15 MLS/HR Albuterol 2.5 mg Q6HR NEB 12/22/24 12:00 01/01/25 05:57 2.5 MG Ipratropium [place] 0.5 mg Q6HR NEB 12/22/24 12:00 01/01/25 05:57 0.5 MG Acetylcysteine 100 mg Q6HR NEB 12/22/24 12:00 01/01/25 05:57 100 MG Albumin Human 100 ml @ 100 mls/hr PRN PRN IV 12/24/24 03:15 12/24/24 03:50 100 MLS/HR Enteral Nutritional Formula 1,000 ml 50ML/HR GT 12/26/24 08:45 12/31/24 17:43 1,000 ML Vasopressin 20 units/Sodium Chloride 100 ml @ 9 mls/hr Q11H7M IV 12/26/24 16:30 Propofol 100 ml @ 2.553 mls/ hr Q24H IV 12/26/24 18:00 12/30/24 21:56 10.212 MLS/HR Labetalol HCl 10 mg Q4HPRN PRN IV 12/26/24 18:30 12/28/24 12:25 10 MG Purified Water 300 ml Q4HR GT 12/27/24 10:00 01/01/25 06:09 300 ML Insulin Glargine 8 units HS SC 12/27/24 22:00 12/31/24 22:08 8 UNITS Carvedilol 12.5 mg Q12HR NG 12/28/24 22:00 12/29/24 11:41 12.5 MG Polyethylene Glycol 17 gm DAILY PO 12/29/24 10:00 12/31/24 09:55 17 GM Sennosides 17.2 mg HS PO 12/29/24 22:00 12/31/24 22:05 17.2 MG Meropenem 50 ml @ 17 mls/hr Q8H IV 12/28/24 18:00 01/01/25 02:18 17 MLS/HR Bisacodyl 10 mg DAILYP PRN [place] 12/29/24 09:15 Lisinopril 10 mg DAILY GT 12/30/24 10:00 12/30/24 09:59 10 MG Hydralazine HCl 25 mg Q12HR GT 12/30/24 10:00 12/31/24 22:06 25 MG Dextrose 1,000 ml @ 60 mls/hr [id number] IV 12/30/24 13:15 01/01/25 02:19 60 MLS/HR Dexmedetomidine HCl 400 mcg/ Dextrose 100 ml @ 4.375 mls/ hr [id number] IV 12/30/24 15:30 12/31/24 13:54 4.375 MLS/HR Vancomycin HCl 250 ml @ 200 mls/hr Q24H IV 12/31/24 12:00 12/31/24 11:43 200 MLS/HR Laboratory Results Laboratory Tests 01/01/25 03:31 Chemistry Test 01/01/25 03:31 Calcium Level 9.8 mg/dL (8.7-10.4) Urinalysis Test 12/21/24 12:07 Urine Color Light-yellow (Yellow) Urine Clarity Clear (Clear) Urine pH 5.5 (5.0-9.0) Urine Specific [place] 1.016 (1.001-1.035) Urine Protein 2+ (Negative) H Urine Ketones Negative (Negative) Urine Blood 1+ /uL (Negative) H Urine Nitrite Negative (Negative) Urine Bilirubin Negative (Negative) Urine Urobilinogen Normal mg/dL (Negative) Urine Leukocyte Esterase Negative /uL (Negative) Urine RBC 4 /hpf (0 - 3) Urine Microscopic WBC 2 /HPF (0-3) Urine Squamous Epithelial Cells None seen /hpf (<5) Urine Bacteria Few /hpf (None Seen) H Urine Creatinine 125.39 mg/dL (30.0-125.0) H Urine Sodium < 10 mmol/L (40-220) L Urine Glucose Normal mg/dL (Normal) Blood Gas Results Test 12/31/24 11:07 01/01/25 06:52 Arterial Blood pH 7.505 (7.350-7.450) 7.514 (7.350-7.450) FiO2 % 30.0 30.0 Microbiology Microbiology Date/Time Source Procedure Growth Status 12/24/24 10:22 Blood Blood Culture - Final NO GROWTH AFTER 5 DAYS OF INCUBATION. Complete 12/22/24 17:11 Urine - [place] Urine Culture - Final Complete 12/22/24 11:30 Nose MRSA Screen - Final Complete Labs and/or images reviewed: Labs reviewed by me, Image(s) reviewed by me Assessment/Plan Assessment/Plan Impression: -acute hypoxic respiratory failure -multifocal pneumonia , community-acquired, probable Gram-positive/Gram-negative etiology -severe sepsis with shock -acute kidney injury, hemodynamically mediated. Probable underlying CKD -nicotine dependence -diabetes mellitus -primary hypertension -pancytopenia -NSTEMI type 2 -transaminitis -diabetes mellitus, periods of hypoglycemia -? Multiple myeloma Plan: Events: Hypernatremia improving. Patient now off sedation. Spontaneous breathing trial once patient was awake. -Continue free water and D5W. -IV diuresis, potassium replacement -vent settings: A.c. 20, tidal volume 550, decrease PEEP 5, FiO2 30% -antibiotic therapy: Vancomycin, meropenem -PUD, DVT prophylaxis -consultations: Cardiology, Nephrology, Hematology -continue current ventilator settings -repeat labs, chest x-ray, ABG in a.m. Critical care time spent with patient discussing and formulating plan of care: 90 minutes. This does not include time spent performing procedures. This medical document was created using an electronic medical record system with [employer] dictation system. Although this document has been carefully reviewed, there may still be some phonetic and typographical errors. These areas are purely typographical due to imperfections of the software programs, and do not reflect any compromise in the patient's medical care. Plan discussed with: Patient, Other (RN) My Orders Orders - TESSIE MASON NP Procedure Category Date Status Time Cpap/Sed Vacation Med ORDERS 12/31/24 Transmitted Weaning 07:43 Cleanse Wound With RADHA 12/31/24 In Process Wound Clean 15:40 Cpap/Sed Vacation Med ORDERS 01/01/25 Transmitted Weaning 06:43 Date of Service: Jan 01, 2025 Billing Provider: TESSIE MASON NP Common Visit Codes: [id number] CARE 30-74 MIN TESSIE MASON NP Jan 01, 2025 07:31
--- NOTE | 2025-01-01 07:33 | DVHPN2 ---
Subjective Intubated and sedated Reviewed: Care Plan, H&P, Labs, Medications Changes from previous H/P or p: No Changes General: Per HPI Objective Vitals Vital Signs Date Time Temp Pulse Resp B/P (MAP) Pulse Ox O2 Delivery O2 Flow Rate FiO2 01/01/25 06:45 95.4 65 15 148/64 (92) 99 203.7 01/01/25 06:00 Mechanical Ventilator+ 30 30 Intake/Output Intake and Output 01/01/25 07:00 Intake Total 4292.190 ml Output Total 3050 ml Balance 1242.190 ml Intake Oral 2100 ml IV Total 2075.190 ml Tube Feeding 117 ml Output Urine Total 3050 ml General Appearance: mild distress, Other (Intubated and sedated) HEENT: Atraumatic, PERRLA Lungs: Other (Mechanical ventilation. Rhonchi) Cardiovascular: Normal S1, Normal S2 Abdomen: Normal bowel sounds, Soft, No tenderness Back: Flank Tenderness, Midline Tenderness Musculoskeletal: Other (No motor movement) Neuro: Other (Unable to assess) Skin: Dry, Intact, Wounds (See nurse notes and pictures) Psych/Mental Status: Other (Unable to assess) Medications Current Medications Medications Dose Ordered Sig/Teddy Route Start Time Stop Time Status Last Admin Dose Admin Sodium Chloride 10 ml Q8HR IV 12/21/24 22:00 01/01/25 06:08 10 ML Acetaminophen 650 mg Q6HP PRN PO 12/21/24 17:30 12/22/24 13:57 650 MG Ondansetron HCl 4 mg Q4HP PRN IV 12/21/24 17:30 Pantoprazole Sodium 40 mg BID IV 12/21/24 22:00 12/31/24 22:06 40 MG Diagnostic Test (Pha) 1 strip Q6HR 12/21/24 18:00 01/01/25 06:09 1 STRIP Insulin Human Regular Q6HR SC 12/21/24 18:00 01/01/25 00:28 2 UNITS Dextrose 50 ml UD PRN IV 12/21/24 17:45 12/22/24 07:59 50 ML Midazolam HCl 50 ml @ 1 mls/hr Q24H IV 12/21/24 17:45 12/28/24 01:59 5 MLS/HR Vancomycin HCl 0 ml @ 0 mls/hr UD IV 12/21/24 18:30 Fentanyl Citrate 250 ml @ 2.5 mls/hr Q24H IV 12/22/24 02:15 12/30/24 21:58 15 MLS/HR Albuterol 2.5 mg Q6HR NEB 12/22/24 12:00 01/01/25 05:57 2.5 MG Ipratropium Avalon 0.5 mg Q6HR NEB 12/22/24 12:00 01/01/25 05:57 0.5 MG Acetylcysteine 100 mg Q6HR NEB 12/22/24 12:00 01/01/25 05:57 100 MG Albumin Human 100 ml @ 100 mls/hr PRN PRN IV 12/24/24 03:15 12/24/24 03:50 100 MLS/HR Enteral Nutritional Formula 1,000 ml 50ML/HR GT 12/26/24 08:45 12/31/24 17:43 1,000 ML Vasopressin 20 units/Sodium Chloride 100 ml @ 9 mls/hr Q11H7M IV 12/26/24 16:30 Propofol 100 ml @ 2.553 mls/ hr Q24H IV 12/26/24 18:00 12/30/24 21:56 10.212 MLS/HR Labetalol HCl 10 mg Q4HPRN PRN IV 12/26/24 18:30 12/28/24 12:25 10 MG Purified Water 300 ml Q4HR GT 12/27/24 10:00 01/01/25 06:09 300 ML Insulin Glargine 8 units HS SC 12/27/24 22:00 12/31/24 22:08 8 UNITS Carvedilol 12.5 mg Q12HR NG 12/28/24 22:00 12/29/24 11:41 12.5 MG Polyethylene Glycol 17 gm DAILY PO 12/29/24 10:00 12/31/24 09:55 17 GM Sennosides 17.2 mg HS PO 12/29/24 22:00 12/31/24 22:05 17.2 MG Meropenem 50 ml @ 17 mls/hr Q8H IV 12/28/24 18:00 01/01/25 02:18 17 MLS/HR Bisacodyl 10 mg DAILYP PRN [place] 12/29/24 09:15 Lisinopril 10 mg DAILY GT 12/30/24 10:00 12/30/24 09:59 10 MG Hydralazine HCl 25 mg Q12HR GT 12/30/24 10:00 12/31/24 22:06 25 MG Dextrose 1,000 ml @ 60 mls/hr [id number] IV 12/30/24 13:15 01/01/25 02:19 60 MLS/HR Dexmedetomidine HCl 400 mcg/ Dextrose 100 ml @ 4.375 mls/ hr [id number] IV 12/30/24 15:30 12/31/24 13:54 4.375 MLS/HR Vancomycin HCl 250 ml @ 200 mls/hr Q24H IV 12/31/24 12:00 12/31/24 11:43 200 MLS/HR Laboratory Results Laboratory Tests 01/01/25 03:31 Chemistry Test 01/01/25 03:31 Calcium Level 9.8 mg/dL (8.7-10.4) Urinalysis Test 12/21/24 12:07 Urine Color Light-yellow (Yellow) Urine Clarity Clear (Clear) Urine pH 5.5 (5.0-9.0) Urine Specific [place] 1.016 (1.001-1.035) Urine Protein 2+ (Negative) H Urine Ketones Negative (Negative) Urine Blood 1+ /uL (Negative) H Urine Nitrite Negative (Negative) Urine Bilirubin Negative (Negative) Urine Urobilinogen Normal mg/dL (Negative) Urine Leukocyte Esterase Negative /uL (Negative) Urine RBC 4 /hpf (0 - 3) Urine Microscopic WBC 2 /HPF (0-3) Urine Squamous Epithelial Cells None seen /hpf (<5) Urine Bacteria Few /hpf (None Seen) H Urine Creatinine 125.39 mg/dL (30.0-125.0) H Urine Sodium < 10 mmol/L (40-220) L Urine Glucose Normal mg/dL (Normal) Blood Gas Results Test 12/31/24 11:07 01/01/25 06:52 Arterial Blood pH 7.505 (7.350-7.450) 7.514 (7.350-7.450) FiO2 % 30.0 30.0 Microbiology Microbiology Date/Time Source Procedure Growth Status 12/24/24 10:22 Blood Blood Culture - Final NO GROWTH AFTER 5 DAYS OF INCUBATION. Complete 12/22/24 17:11 Urine - [place] Urine Culture - Final Complete 12/22/24 11:30 Nose MRSA Screen - Final Complete Labs and/or images reviewed: Labs reviewed by me, Image(s) reviewed by me Assessment/Plan Assessment/Plan Impression: -acute hypoxic respiratory failure -multifocal pneumonia , community-acquired, probable Gram-positive/Gram-negative etiology -severe sepsis with shock -acute kidney injury, hemodynamically mediated. Probable underlying CKD -nicotine dependence -diabetes mellitus -primary hypertension -pancytopenia -NSTEMI type 2 -transaminitis -diabetes mellitus, periods of hypoglycemia -? Multiple myeloma Plan: Events: No events overnight. Patient continues to be on Precedex with minimal movement. Patient was placed on CPAP yesterday with appropriate ABG. Continues to be somnolent. Discussed with primary nurse to stop Precedex and only use if patient exhibits anxiety. -stop D5W given hypernatremia is resolved. Decrease free water to 200 mL every 6 hours -repeat cultures are negative. Initial blood culture of Staph hominis, probable contamination. -vent settings: A.c. 20, tidal volume 550, decrease PEEP 5, FiO2 30% -deescalate antibiotic therapy to Rocephin 2 g daily -PUD, DVT prophylaxis -consultations: Cardiology, Nephrology, Hematology -continue current ventilator settings -repeat labs, chest x-ray, ABG in a.m. Critical care time spent with patient discussing and formulating plan of care: 90 minutes. This does not include time spent performing procedures. This medical document was created using an electronic medical record system with [employer] dictation system. Although this document has been carefully reviewed, there may still be some phonetic and typographical errors. These areas are purely typographical due to imperfections of the software programs, and do not reflect any compromise in the patient's medical care. Plan discussed with: Patient, Other (RN) My Orders Orders - TESSIE MASON NP Procedure Category Date Status Time Cpap/Sed Vacation Med ORDERS 12/31/24 Transmitted Weaning 07:43 Cleanse Wound With RADHA 12/31/24 In Process Wound Clean 15:40 Cpap/Sed Vacation Med ORDERS 01/01/25 Transmitted Weaning 06:43 Date of Service: Jan 01, 2025 Billing Provider: TESISE MASON NP Common Visit Codes: [id number] CARE 30-74 MIN TESSIE MASON NP Jan 01, 2025 07:33
[2025-01-01] MEDS: PANTOPRAZOLE 40 MG/10 ML VIAL INJ IV SCH (09:25)
[2025-01-01] MEDS: cefTRIAXone 2GM/50ML D5W 50 ML IV SCH (09:25)
[2025-01-01] MEDS: FREE WATER GT SCH (11:24)
[2025-01-02] VITALS (108 sets, daily range): BP systolic 87–183; BP diastolic 48–92; PULSE 55–79; RESP 11–27; TEMP 56.7–99.9; O2SAT 94–100
[2025-01-02 03:30] LABS: Basophils # (auto) 0 10 ^3/uL (0-0.2); Basophils % (auto) 0.3 % (0.0-2.0); Eosinophils # (auto) 0 10 ^3/uL (0-0.8); Eosinophils % (auto) 0.4 % (0.0-7.0); Hemoglobin 8.2 g/dL (13.5-17.5); Monocytes # (auto) 0.3 10 ^3/uL (0-1.3)
[2025-01-02 03:33] LABS: Hematocrit 24.8 % (41.0-53.0); Lymphocytes % (auto) 13.1 % (10.0-50.0); Mean Corpuscular Hemoglobin 30.8 pg (28.0-32.0); Mean Corpuscular Hgb Conc. 33.3 g/dL (32.0-36.0); Mean Corpuscular Volume 92.4 fL (80.0-100.0); Monocytes % (auto) 3.4 % (0.0-12.0); Neutrophils # (auto) 6.6 10 ^3/uL (1.6-8.6); Neutrophils % (auto) 82.8 % (37.0-80.0); Nucleated Red Blood Cells % 0.2 %; Platelet Count (auto) 146 10^3/uL (140-450); Red Blood Cells 2.68 10^6/uL (4.5-5.90); Red Cell Distribution Width 22.5 % (11.8-14.3)
[2025-01-02 03:37] LABS: Anion Gap 12 (5-15); Carbon Dioxide 26 mmol/L (20-31); Chloride 105 mmol/L (98-107); Sodium 143 mmol/L (136-145)
[2025-01-02 03:39] LABS: Calcium 9.9 mg/dL (8.7-10.4)
[2025-01-02 04:02] LABS: Glucose 108 mg/dL (74-106); Potassium 3.3 mmol/L (3.5-5.1)
[2025-01-02 04:14] LABS: BUN/Creatinine Ratio 31.9 (10.0-20.0); Blood Urea Nitrogen 29 mg/dL (9-23)
--- NOTE | 2025-01-02 05:54 | DVH ---
EXAM: XR Chest, 1 View CLINICAL INDICATION: INTUBATED TECHNIQUE: Frontal view of the chest. COMPARISON: XY CHEST PORTABLE on DOS: 01/01/25, XY CHEST PORTABLE on DOS: 12/31/24, XY CHEST PORTABLE on DOS: 12/30/24, XY CHEST PORTABLE on DOS: 12/28/24, XY CHEST PORTABLE on DOS: 12/26/24 FINDINGS: LUNGS AND PLEURAL SPACES: Pulmonary congestion and edema. Pneumonia cannot be excluded. Bibasilar atelectasis. No pneumothorax. HEART: Unremarkable. No cardiomegaly. MEDIASTINUM: Unremarkable. Normal mediastinal contour. BONES/JOINTS: Unremarkable. No acute fracture. TUBES, LINES AND DEVICES: Stable tubes and lines. OTHER FINDINGS: . IMPRESSION: Pulmonary congestion and edema. Pneumonia cannot be excluded.
[2025-01-02 07:03] LABS: Base Excess 1.2 mmol/L (-2.0-3.0)
--- NOTE | 2025-01-02 10:33 | DVHPN2 ---
Assessment/Plan Assessment/Plan ICU note 59 yo M with IDDM HTN admitted for AMS, had acute hypoxic respiratory failure and was intubated and placed on mechanical ventilation. concern for MM, had HD with renal recovery. seen by me today during rounds, on CPAP, no mental status, off precedex. 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 RYAN VMN on CKD IDDM HTN pancytopenia type 2 AK demand ischemia hypernatremia resolved c/w mechanical ventilation maintain spo2 >94% c/w pressors maintain MAP >65 hold sedation daily SAT SBT c/w lasix maintain net 0 c/w vanc and félix and micafungin c/w hydrocortisone hemonc consult, concern for MM c/w FWF repeat CT keep glucose between 150-200 keep K 4, Ph 3, Mg 2 lines ETT NGT TLC leung diet jevity dvt ppx lovenox gi ppx protonix code status full code goals of care curative critical care time 50 minutes Plan discussed with: Other Date of Service: Jan 02, 2025 Billing Provider: WILLAM PEARL MD Common Visit Codes: [id number] CARE 30-74 MIN WILLAM PEARL MD Jan 02, 2025 10:33
[2025-01-02] MEDS: POTASSIUM CHL 20MEQ/50ML 50 ML IV ONE (14:44)
--- NOTE | 2025-01-02 16:37 | DVH ---
EXAM: CT HEAD WITHOUT CONTRAST INDICATION: repeat TECHNIQUE: CT of the head without intravenous contrast. Radiation Dose Information: CT Dose: CTDI volume is 60.77 mGy. Dose-length product is 1091.13 mGy*cm The dose indicators for CT are the volume Computed Tomography (CT) Dose Index (CTDIvol) and the Dose Length Product (DLP), and are measured in units of mGy and mGy-cm, respectively. These indicators are not patient dose, but values generated from the CT scanner acquisition factors. The report includes radiation exposure data for exposures received during this examination. COMPARISON: CT HEAD WITHOUT CONTRAST on DOS: 12/21/24 FINDINGS: Interval development of hyperdense foci in the left frontal lobe adjacent to the insular cortex with evidence of hypodensity in this region. Findings likely represent a hemorrhagic infarct. There is ad ditional punctate foci of hemorrhage with hypodensities in the medial left temporal lobe, suspicious for hemorrhagic transformation of acute infarcts. There is an additional foci which appears hyperdens e in the right frontal lobe, which could represent acute intracranial hemorrhage. These were not see n on the prior study. The jaramillo-white differentiation is intact. Patchy periventricular and subcortical white matter hypoattenuation is nonspecific but may be related to small vessel ischemic disease. The visualized paranasal sinuses and mastoid air cells are clear. The surrounding soft tissues and osseous structures are unremarkable. IMPRESSION: Interval development of hyperdense foci in the left frontal lobe adjacent to the insular cortex with evidence of hypodensity in this region. Findings likely represent a hemorrhagic infarct. There is ad ditional punctate foci of hemorrhage with hypodensities in the medial left temporal lobe, suspicious for hemorrhagic transformation of acute infarcts. There is an additional foci which appears hyperdens e in the right frontal lobe, which could represent acute intracranial hemorrhage. These were not see n on the prior study. Critical Result: Intracranial hemorrhage Findings discussed with Heaven VILLA at 01/02/2025 04:31 PM, and acknowledged receipt and understanding of the findings. ..
--- NOTE | 2025-01-02 17:42 | DVHPN2 ---
Assessment/Plan Assessment/Plan ICU note 59 yo M with IDDM HTN admitted for AMS, had acute hypoxic respiratory failure and was intubated and placed on mechanical ventilation. concern for MM, had HD with renal recovery. follow up note, received critical of ICH. ICH score 2, volume ~0.4cc. neuro consult. holding ac antiplatelets. ss consult for HLOC transfer. 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 RYAN VMN on CKD IDDM HTN pancytopenia type 2 [place] demand ischemia hypernatremia resolved New intracerebral hemorrhage c/w mechanical ventilation maintain spo2 >94% c/w pressors maintain MAP >65 hold sedation daily SAT SBT c/w lasix maintain net 0 c/w vanc and félix and micafungin c/w hydrocortisone hemonc consult, concern for MM c/w FWF repeat CT with ICH, ICH score 2 maintain Na 145-155 Maintan PCO2 35-40 SS consult HLOC Neuro stat HOB elevation keep glucose between 150-200 keep K 4, Ph 3, Mg 2 lines ETT NGT TLC leung diet jevity dvt ppx lovenox gi ppx protonix code status full code goals of care curative critical care time 90 minutes Plan discussed with: Other My Orders Orders - WILLAM PEARL MD Procedure Category Date Status Time Basic Metabolic Panel LAB 01/03/25 Verified 04:00 Complete Blood Count LAB 01/03/25 Verified 04:00 Magnesium LAB 01/03/25 Verified 04:00 Phosphorus LAB 01/03/25 Verified 04:[address] 01/02/25 Resulted 10:33 * Neurology Consult CONS 01/02/25 Transmitted 16:37 * [place] [employer] CONS 01/02/25 Transmitted Consult Date of Service: Jan 02, 2025 Billing Provider: WILLAM PEARL MD Common Visit Codes: [id number] CARE-EACH +30MIN WILLAM PEARL MD Jan 02, 2025 17:42
[2025-01-02 18:30] LABS: Base Excess 2.3 mmol/L (-2.0-3.0)
--- NOTE | 2025-01-02 18:30 | DVH ---
PROCEDURE: US CAROTID DUPLX W COLOR DOP 01/02/2025 05:12 PM INDICATION: CVA COMPARISON: None TECHNIQUE: Real-time grayscale and color Doppler images of the neck arteries were obtained with spect ral analysis performed. FINDINGS: RIGHT: Not visualized due to central line. LEFT: No significant atherosclerotic plaque identified in the carotid. Normal spectral waveforms are seen. ICA peak systolic velocity: 71 cm/s ICA end-diastolic velocity: 7 cm/s ICA/CCA ratios: 0.6 VERTEBRAL ARTERIES: Normal antegrade flow is seen bilaterally. Normal spectral waveforms. IMPRESSION: 1. No hemodynamically significant carotid artery stenosis identified on the left side. The right car otid and vertebral artery could not be evaluated due to presence of a central line. Reference: Radiology 2003; [id number] Normal ICA PSV is <125 cm/sec and no plaque or intimal thickening is visible sonographically additional criteria include ICA/CCA PSV ratio <2.0 and ICA EDV <40 cm/sec <50% ICA stenosis ICA PSV is <125 cm/sec and plaque or intimal thickening is visible sonographically additional criteria include ICA/CCA PSV ratio <2.0 and ICA EDV <40 cm/sec 50-69% ICA stenosis ICA PSV is 125-230 cm/sec and plaque is visible sonographically additional criteria include ICA/CCA PSV ratio of 2.0-4.0 and ICA EDV of 40-100 cm/sec 70% ICA stenosis but less than near occlusion ICA PSV is >230 cm/sec and visible plaque and luminal narrowing are seen at jaramillo-scale and color Dopp ler ultrasound (the higher the Doppler parameters lie above the threshold of 230 cm/sec, the greater the likelihood of severe disease) additional criteria include ICA/CCA PSV ratio >4 and ICA EDV >100 cm/sec
--- NOTE | 2025-01-02 19:30 | PRN ---
Misceleneous Note Note Note physician handoff done with [facility]< accepted as emergent transfer WILLAM PEARL MD Jan 02, 2025 19:30
--- NOTE | 2025-01-02 19:31 | DVHINCON2 ---
Date of service: Jan 02, 2025 Referring Physician Anil Reason for Consultation Brain bleed History of Present Illness Mr. Mayra De Los Santos is a right-handed gentleman with a history of hypertension, diabetes, he was admitted to the [facility] on 12/21/2024 with a chief complaint of altered mental status, at that time, the patient was is intubated, sedated, but is sided respond to verbal stimuli. The history is ob tained from his nurse, chart review, and his nephew His nephew lives in [place], and he does not know what happened to him exactly. Apparently, the patient was coworkers found him mentally altered, and when EMS came over, his pulse ox was 70% on room air, the patient has been intubated on 12/21/2024. He was initial CT brain scan was unremarkable, however a follow-up CT scan she was multiple intra cerebral hemorrhage His hospital course is also complicated with sepsis, metabolic acidosis, acute kidney failure, hypernatremia, elevated liver function tests, Blood culture, 12/21/2024: Staph coccus horminis ABG, 12/21/2024: Metabolic acidosis, 12/23/2024: Metabolic acidosis WBC/HB/PLT/MCV, 01/02/2025: 8/8.2/146/92.4 PT/INR/PTT, 12/21/2024: 17.4/1.73/34.6 Na, 12/21/2024: 134, 12/25/2024: 147, 321/25: 156, :161, 12/30/2019 5:158, 12/30/2024: 152, 01/02/2025: 143 BUN/CR, 12/24/2024: 86/4.35 12/26/2024: 100/2.05 TBI/AST/ALT/AP, 12/24/2024: 1.3/213/308/29, 12/26/2024: 1.2/104/193/81, 12/28/2024: 1/100/134/128 TG/HDL/LDL/HDL, 12/22/2024: 81/<50/6/9 Troponin one high sensitivity, 12/21/2024: 446, the 107, 1653, 12/22/2024: 2531 SIFE, 12/23/2024: Biclonal IgA protein with kappa specificity Carotid Doppler, 01/02/2025: No hemodynamically significant carotid artery stenosis identified on the left side. The right carotid and vertebral artery could not be evaluated due to presence of a central line. Chest x-ray, 12/21/2024 (post intubation): 1. Endotracheal tube 2-3 cm above the karina 2. Enteric tube noted to the left diaphragm not visualized distally Chest x-ray, (intubated) 5: Pulmonary congestion and edema. Pneumonia cannot be excluded. CT head, 12/21/2024: 1. No CT evidence of acute intracranial abnormality. 2. Mild motion artifact and beam hardening artifact limits evaluation for subtle findings CT head, 01/02/2025: Interval development of hyperdense foci in the left frontal lobe adjacent to the insular cortex with evidence of hypodensity in this region. Findings likely represent a hemorrhagic infarct. There is additional punctate foci of hemorrhage with hypodensities in the medial left temporal lobe, suspicious for hemorrhagic transformation of acute infarcts. There is an a dditional foci which appears hyperdense in the right frontal lobe, which could represent acute intracranial hemorrhage. These were not seen on the prior study. CT chest, 12/21/2024: Patchy infiltrates in the upper lung rubio bilaterally, lingula on the left, and lower lung rubio, bilaterally. Past Medical History Hypertension, diabetes Past Surgical History Unknown Family History: Patient reports no known family medical history. Family History His nephew is not aware of major medical problems Social History He smokes, but no history of alcohol or recreational substance abuse Allergies: Coded Allergies: NO KNOWN ALLERGIES (Unverified , 12/21/24) Current Medications Current Medications Medications (Trade) Dose Ordered Sig/Teddy Route PRN Reason Start Time Stop Time Status Last Admin Nicardipine HCl 250 ml @ 50 mls/hr Q5H IV 01/02/25 19:00 Review of Systems Unobtainable Vital Signs Vital Signs Date Time Temp Pulse Resp B/P (MAP) Pulse Ox O2 Delivery O2 Flow Rate FiO2 01/02/25 18:53 155/69 01/02/25 18:49 72 22 100 30 01/02/25 18:00 Mechanical Ventilator+ 01/02/25 13:00 99.5 211.1 Physical Exam The patient is well-nourished and well-developed with no distress. The patient is intubated HEENT: Normocephalic, neck supple, no carotid bruits Lungs: Clear to auscultation Cardiovascular: Regular rate and region, S1, S2, no murmurs Abdomen: Soft, nontender, normal bowel sounds MENTAL STATUS: Subjective, CRANIAL NERVES: Pupils are equal, round and reactive. There are corneal reflexes and doll's eyes phenomenon. No signs of facial weakness. There are gagging or coughing reflexes during oral care SENSATION: Responses to pain stimuli. MOTOR: Normal tone in the upper and lower extremity. Normal muscle bulk. No fasciculations. No spontaneous movement. REFLEXES: Deep tendon reflexes are symmetrical. No pathological reflexes. CEREBELLAR/COORDINATION: Deferred GAIT/STATION: deferred Labs/Diagnostic Data Labs Test 01/02/25 18:22 01/02/25 18:09 01/02/25 03:07 12/31/24 11:07 Range/Units Blood Gas Specimen Type Arterial Blood Gas Sample Site Right radial Blood Gas Patient Temperature 37.0 Arterial Blood Date Drawn [id number] Arterial Blood pH 7.483 H 7.350-7.450 Arterial Blood Partial Pressure CO2 34.4 L 35.0-48.0 mmHg Arterial Blood Partial Pressure O2 112.0 H 83.0-108.0 mmHg Arterial Blood HCO3 25.2 21.0-28.0 mmol/L Arterial Blood Oxygen Saturation 98.1 H 94.0-98.0 % Arterial Blood Base Excess 2.3 -2.0-3.0 mmol/L Arterial Blood Oxyhemoglobin 97.4 94.0-98.0 % Arterial Blood Carboxyhemoglobin 0.3 L 0.5-1.5 % Arterial Blood Methemoglobin 0.4 0.0-1.5 % Dharmesh Test Yes Blood Gas Total Hemoglobin 15.80 13.5-17.5 g/dL Blood Gas Set Respiration Rate 20.0 Blood Gas Modality Vent - ac Blood Gas Spontaneous Rate 22 FiO2 % 30.0 Blood Gas Tidal Volume 550.0 Blood Gas Inspiratory Pressure 24.0 Blood Gas PEEP or CPAP 6.0 POC Glucose 133 H 70-106 mg/dl White Blood Count 8.0 4.4-10.8 10^3/uL Red Blood Count 2.68 L 4.5-5.90 10^6/uL Hemoglobin 8.2 L 13.5-17.5 g/dL Hematocrit 24.8 L 41.0-53.0 % Mean Corpuscular Volume 92.4 80.0-100.0 fL Mean Corpuscular Hemoglobin 30.8 28.0-32.0 pg Mean Corpuscular Hemoglobin Concent 33.3 32.0-36.0 g/dL Red Cell Distribution Width 22.5 H 11.8-14.3 % Platelet Count 146 140-450 10^3/uL Mean Platelet Volume 9.9 6.9-10.8 fL Neutrophils (%) (Auto) 82.8 H 37.0-80.0 % Lymphocytes (%) (Auto) 13.1 10.0-50.0 % Monocytes (%) (Auto) 3.4 0.0-12.0 % Eosinophils (%) (Auto) 0.4 0.0-7.0 % Basophils (%) (Auto) 0.3 0.0-2.0 % Neutrophils # (Auto) 6.6 1.6-8.6 10 ^3/uL Lymphocytes # (Auto) 1.0 0.4-5.4 10 ^3/uL Monocytes # (Auto) 0.3 0-1.3 10 ^3/uL Eosinophils # (Auto) 0 0-0.8 10 ^3/uL Basophils # (Auto) 0 0-0.2 10 ^3/uL Nucleated Red Blood Cells 0.2 % Sodium Level 143 136-145 mmol/L Potassium Level 3.3 L 3.5-5.1 mmol/L Chloride Level 105 98-107 mmol/L Carbon Dioxide Level 26 20-31 mmol/L Anion Gap 12 5-15 Blood Urea Nitrogen 29 H 9-23 mg/dL Creatinine 0.91 0.700-1.30 mg/dL Glomerular Filtration Rate Calc 96 >90 mL/min BUN/Creatinine Ratio 31.9 H 10.0-20.0 Serum Glucose 108 H 74-106 mg/dL Calcium Level 9.9 8.7-10.4 mg/dL Blood Gas Pressure Support 8 Test 12/31/24 03:00 12/29/24 03:25 12/28/24 03:15 12/25/24 03:15 Range/Units Differential Total Cells Counted 100.0 100 Neutrophils % (Manual) 89 H 37.0-80.0 Band Neutrophils % (Manual) 2 Lymphocytes % (Manual) 5 L 10.0-50.0 Monocytes % (Manual) 1 0-12 Eosinophils % (Manual) 2 0-7 Basophils % (Manual) 0 0.0-2.0 Metamyelocytes % (manual) 1 Myelocytes % (Manual) 0 Promyelocytes % (Manual) 0 Blast Cells % (Manual) 0 Reactive Lymphocytes 0 Platelet Estimate Decreased Anisocytosis (manual) Slight Magnesium Level 2.1 1.6-2.6 mg/dL Random Vancomycin Level 14.2 H 5-10 ug/mL Rouleaux Present Phosphorus Level 3.1 2.4-5.1 mg/dL Total Bilirubin 1.0 0.2-1.0 mg/dL Aspartate Amino Transferase (AST) 100 H 13-40 U/L Alanine Aminotransferase (ALT) 134 H 7-40 U/L Alkaline Phosphatase 128 H 46-116 U/L Total Protein 8.4 H 5.7-8.2 g/dL Albumin 2.2 L 3.2-4.8 g/dL Target Cells Few Test 12/24/24 03:00 12/23/24 16:00 12/23/24 09:56 12/23/24 05:30 Range/Units Large Platelets Few Reticulocyte Count (auto) 0.74 0.5-1.5 % Haptoglobin 169 29-370 mg/dL Lactate Dehydrogenase 256 H 120-246 U/L Rheumatoid Factor 11.3 <14.0 IU/mL Hepatitis A IgM Antibody Negative Hepatitis B Surface Antigen Negative Negative Hepatitis B Surface Antibody Negative Negative Hepatitis B Core Total Antibody Negative Negative Hepatitis B Core IgM Antibody Negative Negative Hepatitis C Antibody Negative Negative Serum Immunoglobulin G 85 L 603-1613 mg/dL Globulin (PEP) 6.7 H 2.2-3.9 g/dL Albumin/Globulin Ratio 0.3 L 0.7-1.7 Ertph-3-Kbeadelft 0.4 0.0-0.4 g/dL Kjnoj-2-Cyybbdumt 0.8 0.4-1.0 g/dL Beta Globulins 5.2 H 0.7-1.3 g/dL Qppy-5-Ahrznbrbwltbp 17.5 H 0.6-2.4 mg/L Gamma Globulins 0.3 L 0.4-1.8 g/dL Protein Electrophoresis M-Hola 4.6 H Not Observed g/dL Protein Electrophoresis Note Comment . Immunoglobulin A 3536 H 90-386 mg/dL Immunoglobulin M 7 L 20-172 mg/dL Serum Immunofixation Comment H . Urine Immunofixation Comment H . Free [place] Light Chains, Quant 827.4 H 3.3-19.4 mg/L Free [place]/Lambda Light Chain Ratio 110.32 H 0.26-1.65 Blood Gas Critical Value Read Back Yes Blood Gas Notified Whom Marci [place] Blood Gas Notified Time [id number] Blood Gas Notified By Rt sussy sibley Lactic Acid Level 3.3 *H 0.4-2.0 mmol/L Troponin I High Sensitivity 2000 *H </=54 ng/L Test 12/22/24 13:06 12/22/24 03:31 12/21/24 20:55 12/21/24 15:33 Range/Units Complement C3 27 L 82-167 mg/dL Complement C4 14 12-38 mg/dL TB Test (QFT) Gold Plus Negative Negative TB Test (QFT) Nil 0.04 . IU/mL TB Test (QFT) Mitogen 7.32 . IU/mL TB Test (QFT) Antigen 1 0.05 . IU/mL TB Test (QFT) Antigen 2 0.04 . IU/mL TB Test (QFT) Criteria Comment . Hemoglobin A1c 5.4 <5.7 % A1C B-Type Natriuretic Peptide 4001.78 0-100 pg/mL Triglycerides Level 81 < 150 mg/dL Cholesterol Level < 50.0 < 200 mg/dL LDL Cholesterol 6 < 100 mg/dL HDL Cholesterol 9 L 40-59 mg/dL Thyroid Stimulating Hormone (TSH) 0.92 0.55-4.78 uIU/mL HIV (1&2) Antibody Negative Negative D-Dimer, Quantitative 1.55 H 0.0-0.49 mg/L FEU Blood Gas EPAP 8 Blood Gas IPAP 14 Test 12/21/24 13:58 12/21/24 12:12 12/21/24 12:07 12/21/24 11:58 Range/Units Blood Gas Liter Flow 15.00 Influenza Type A Antigen Negative Negative Influenza Type B Antigen Negative Negative SARS-CoV-2 Antigen (Rapid) Negative NEGATIVE Urine Color Light-yellow Yellow Urine Clarity Clear Clear Urine pH 5.5 5.0-9.0 Urine Specific [place] 1.016 1.001-1.035 Urine Protein 2+ H Negative Urine Ketones Negative Negative Urine Blood 1+ H Negative /uL Urine Nitrite Negative Negative Urine Bilirubin Negative Negative Urine Urobilinogen Normal Negative mg/dL Urine Leukocyte Esterase Negative Negative /uL Urine RBC 4 0 - 3 /hpf Urine Microscopic WBC 2 0-3 /HPF Urine Squamous Epithelial Cells None seen <5 /hpf Urine Bacteria Few H None Seen /hpf Urine Creatinine 125.39 H 30.0-125.0 mg/dL Urine Sodium < 10 L 40-220 mmol/L Urine Glucose Normal Normal mg/dL Prothrombin Time 17.4 H 9.3-11.8 sec Prothrombin Time INR 1.73 H 0.9-1.15 Activated Partial Thromboplast Time 34.6 H 24.5-34.5 SEC Plasma/Serum Blood Alcohol < 3.0 <10 mg/dL Microbiology Date/Time Source Procedure Growth Status 12/24/24 10:22 Blood Blood Culture - Final NO GROWTH AFTER 5 DAYS OF INCUBATION. Complete 12/22/24 17:11 Urine - [place] Urine Culture - Final Complete 12/22/24 11:30 Nose MRSA Screen - Final Complete Assessment Multiple intracranial hemorrhage Multiple strokes with hemorrhagic transformation Multiple strokes with septic emboli Altered mental status Metabolic encephalopathy Hypoxic encephalopathy Toxic encephalopathy Acute kidney failure Acute hypoxic respiratory failure Pneumonia Hypernatremia Rule out endocarditis Plan/Recommendation Monitoring Supportive treatment ICU care OLIVIA Carotid Doppler Lipitor profile MRI head IV antibiotics Aspirin 81 mg daily GI prophylaxis/Protonix DVT prophylaxis/a CD Plan discussed with: Other JUDSON WALKER MD Jan 02, 2025 19:31
[2025-01-02] MEDS: SODIUM CHLORIDE 0.9% 500 ML IV ONE (19:42)
--- NOTE | 2025-01-02 19:50 | DVHDS2 ---
Discharge Summary Date of Admission Dec 21, 2024 at 17:24 Date of Discharge: Jan 02, 2025 Labs/Diagnostic Data: Laboratory Results Test 01/02/25 18:22 01/02/25 18:09 01/02/25 03:07 12/31/24 11:07 Blood Gas Specimen Type Arterial Blood Gas Sample Site Right radial Blood Gas Patient Temperature 37.0 Arterial Blood Date Drawn [id number] Arterial Blood pH 7.483 (7.350-7.450) Arterial Blood Partial Pressure CO2 34.4 mmHg (35.0-48.0) Arterial Blood Partial Pressure O2 112.0 mmHg (83.0-108.0) Arterial Blood HCO3 25.2 mmol/L (21.0-28.0) Arterial Blood Oxygen Saturation 98.1 % (94.0-98.0) Arterial Blood Base Excess 2.3 mmol/L (-2.0-3.0) Arterial Blood Oxyhemoglobin 97.4 % (94.0-98.0) Arterial Blood Carboxyhemoglobin 0.3 % (0.5-1.5) Arterial Blood Methemoglobin 0.4 % (0.0-1.5) Dharmesh Test Yes Blood Gas Total Hemoglobin 15.80 g/dL (13.5-17.5) Blood Gas Set Respiration Rate 20.0 Blood Gas Modality Vent - ac Blood Gas Spontaneous Rate 22 FiO2 % 30.0 Blood Gas Tidal Volume 550.0 Blood Gas Inspiratory Pressure 24.0 Blood Gas PEEP or CPAP 6.0 POC Glucose 133 mg/dl (70-106) White Blood Count 8.0 10^3/uL (4.4-10.8) Red Blood Count 2.68 10^6/uL (4.5-5.90) Hemoglobin 8.2 g/dL (13.5-17.5) Hematocrit 24.8 % (41.0-53.0) Mean Corpuscular Volume 92.4 fL (80.0-100.0) Mean Corpuscular Hemoglobin 30.8 pg (28.0-32.0) Mean Corpuscular Hemoglobin Concent 33.3 g/dL (32.0-36.0) Red Cell Distribution Width 22.5 % (11.8-14.3) Platelet Count 146 10^3/uL (140-450) Mean Platelet Volume 9.9 fL (6.9-10.8) Neutrophils (%) (Auto) 82.8 % (37.0-80.0) Lymphocytes (%) (Auto) 13.1 % (10.0-50.0) Monocytes (%) (Auto) 3.4 % (0.0-12.0) Eosinophils (%) (Auto) 0.4 % (0.0-7.0) Basophils (%) (Auto) 0.3 % (0.0-2.0) Neutrophils # (Auto) 6.6 10 ^3/uL (1.6-8.6) Lymphocytes # (Auto) 1.0 10 ^3/uL (0.4-5.4) Monocytes # (Auto) 0.3 10 ^3/uL (0-1.3) Eosinophils # (Auto) 0 10 ^3/uL (0-0.8) Basophils # (Auto) 0 10 ^3/uL (0-0.2) Nucleated Red Blood Cells 0.2 % Sodium Level 143 mmol/L (136-145) Potassium Level 3.3 mmol/L (3.5-5.1) Chloride Level 105 mmol/L (98-107) Carbon Dioxide Level 26 mmol/L (20-31) Anion Gap 12 (5-15) Blood Urea Nitrogen 29 mg/dL (9-23) Creatinine 0.91 mg/dL (0.700-1.30) Glomerular Filtration Rate Calc 96 mL/min (>90) BUN/Creatinine Ratio 31.9 (10.0-20.0) Serum Glucose 108 mg/dL (74-106) Calcium Level 9.9 mg/dL (8.7-10.4) Blood Gas Pressure Support 8 Test 12/31/24 03:00 12/29/24 03:25 12/28/24 03:15 12/25/24 03:15 Differential Total Cells Counted 100.0 (100) Neutrophils % (Manual) 89 (37.0-80.0) Band Neutrophils % (Manual) 2 Lymphocytes % (Manual) 5 (10.0-50.0) Monocytes % (Manual) 1 (0-12) Eosinophils % (Manual) 2 (0-7) Basophils % (Manual) 0 (0.0-2.0) Metamyelocytes % (manual) 1 Myelocytes % (Manual) 0 Promyelocytes % (Manual) 0 Blast Cells % (Manual) 0 Reactive Lymphocytes 0 Platelet Estimate Decreased Anisocytosis (manual) Slight Magnesium Level 2.1 mg/dL (1.6-2.6) Random Vancomycin Level 14.2 ug/mL (5-10) Rouleaux Present Phosphorus Level 3.1 mg/dL (2.4-5.1) Total Bilirubin 1.0 mg/dL (0.2-1.0) Aspartate Amino Transferase (AST) 100 U/L (13-40) Alanine Aminotransferase (ALT) 134 U/L (7-40) Alkaline Phosphatase 128 U/L (46-116) Total Protein 8.4 g/dL (5.7-8.2) Albumin 2.2 g/dL (3.2-4.8) Target Cells Few Test 12/24/24 03:00 12/23/24 16:00 12/23/24 09:56 12/23/24 05:30 Large Platelets Few Reticulocyte Count (auto) 0.74 % (0.5-1.5) Haptoglobin 169 mg/dL (29-370) Lactate Dehydrogenase 256 U/L (120-246) Rheumatoid Factor 11.3 IU/mL (<14.0) Hepatitis A IgM Antibody Negative Hepatitis B Surface Antigen Negative (Negative) Hepatitis B Surface Antibody Negative (Negative) Hepatitis B Core Total Antibody Negative (Negative) Hepatitis B Core IgM Antibody Negative (Negative) Hepatitis C Antibody Negative (Negative) Serum Immunoglobulin G 85 mg/dL (603-1613) Globulin (PEP) 6.7 g/dL (2.2-3.9) Albumin/Globulin Ratio 0.3 (0.7-1.7) Esgkd-2-Kcfmirrfl 0.4 g/dL (0.0-0.4) Cqown-8-Hbqywtaca 0.8 g/dL (0.4-1.0) Beta Globulins 5.2 g/dL (0.7-1.3) Fddb-3-Puhdfhabvnoej 17.5 mg/L (0.6-2.4) Gamma Globulins 0.3 g/dL (0.4-1.8) Protein Electrophoresis M-Hola 4.6 g/dL (Not Observed) Protein Electrophoresis Note Comment (.) Immunoglobulin A 3536 mg/dL (90-386) Immunoglobulin M 7 mg/dL (20-172) Serum Immunofixation Comment (.) Urine Immunofixation Comment (.) Free [place] Light Chains, Quant 827.4 mg/L (3.3-19.4) Free [place]/Lambda Light Chain Ratio 110.32 (0.26-1.65) Blood Gas Critical Value Read Back Yes Blood Gas Notified Whom Proposal Manager priscilla riverokamilla Blood Gas Notified Time [id number] Blood Gas Notified By Rt b toñito Lactic Acid Level 3.3 mmol/L (0.4-2.0) Troponin I High Sensitivity 2001 ng/L (</=54) Test 12/22/24 13:06 12/22/24 03:31 12/21/24 20:55 12/21/24 15:33 Complement C3 27 mg/dL (82-167) Complement C4 14 mg/dL (12-38) TB Test (QFT) Gold Plus Negative (Negative) TB Test (QFT) Nil 0.04 IU/mL (.) TB Test (QFT) Mitogen 7.32 IU/mL (.) TB Test (QFT) Antigen 1 0.05 IU/mL (.) TB Test (QFT) Antigen 2 0.04 IU/mL (.) TB Test (QFT) Criteria Comment (.) Hemoglobin A1c 5.4 % A1C (<5.7) B-Type Natriuretic Peptide 4001.78 pg/mL (0-100) Triglycerides Level 81 mg/dL (< 150) Cholesterol Level < 50.0 mg/dL (< 200) LDL Cholesterol 6 mg/dL (< 100) HDL Cholesterol 9 mg/dL (40-59) Thyroid Stimulating Hormone (TSH) 0.92 uIU/mL (0.55-4.78) HIV (1&2) Antibody Negative (Negative) D-Dimer, Quantitative 1.55 mg/L FEU (0.0-0.49) Blood Gas EPAP 8 Blood Gas IPAP 14 Test 12/21/24 13:58 12/21/24 12:12 12/21/24 12:07 12/21/24 11:58 Blood Gas Liter Flow 15.00 Influenza Type A Antigen Negative (Negative) Influenza Type B Antigen Negative (Negative) SARS-CoV-2 Antigen (Rapid) Negative (NEGATIVE) Urine Color Light-yellow (Yellow) Urine Clarity Clear (Clear) Urine pH 5.5 (5.0-9.0) Urine Specific [place] 1.016 (1.001-1.035) Urine Protein 2+ (Negative) Urine Ketones Negative (Negative) Urine Blood 1+ /uL (Negative) Urine Nitrite Negative (Negative) Urine Bilirubin Negative (Negative) Urine Urobilinogen Normal mg/dL (Negative) Urine Leukocyte Esterase Negative /uL (Negative) Urine RBC 4 /hpf (0 - 3) Urine Microscopic WBC 2 /HPF (0-3) Urine Squamous Epithelial Cells None seen /hpf (<5) Urine Bacteria Few /hpf (None Seen) Urine Creatinine 125.39 mg/dL (30.0-125.0) Urine Sodium < 10 mmol/L (40-220) Urine Glucose Normal mg/dL (Normal) Prothrombin Time 17.4 sec (9.3-11.8) Prothrombin Time INR 1.73 (0.9-1.15) Activated Partial Thromboplast Time 34.6 SEC (24.5-34.5) Plasma/Serum Blood Alcohol < 3.0 mg/dL (<10) Other Laboratory Tests 01/02/25 03:07 Final Diagnosis/Problems List acute hypoxic respiratory failure req mechanical ventilation multifocal PNA gp vs gn acute systolic heart failure HFmrEF septic shock RYAN VMN on CKD IDDM HTN pancytopenia type 2 DE demand ischemia hemorhhagic conversion of stroke intracranial hemorrhage Discharge Disposition: Acute Care Facility Discharge Instruct/Medications Diet: See Comment Activity: See Comment 120 Discharge Statement: "Patient was advised to return to the ER or call 911 if any headaches, dizziness, shortness of breath, chest pain, abdominal pain, bleeding, fevers, or worsening of medical condition. Patient was counseled about treatment plan, medications, possible side effects, patientverbalized understanding. All questions were answered to the best of my ability. This discharge took greater then 30 minutes in planning, reviewing documentation, counseling the patient, and discussing with other team members." ASSESSMENT ASSESSMENT Assessment hemorrhagic conversion of stroke Date of Service: Jan 02, 2025 Billing Provider: WILLAM PEARL MD Common Visit Codes: [id number] CARE-EACH +30MIN WILLAM PEARL MD Jan 02, 2025 19:50
[2025-01-03] VITALS: BP 138/61; PULSE 64; PULSE 72; RESP 15; RESP 22; TEMP 99.1; O2SAT 100
[2025-01-03 00:15] VITALS: BP 141/64; PULSE 73; RESP 15; TEMP 99.1; O2SAT 100
[2025-01-03] MEDS ORDERED: NOREPINEPHRINE 8 MG/250ML KIT 250 ML IV ONE (00:31)
[2025-01-03 00:32] VITALS: BP 141/64; PULSE 67; RESP 20; O2SAT 100
[2025-01-03] MEDS ORDERED: NOREPINEPHRINE 8 MG/250ML KIT 250 ML IV SCH (08:30)
[2025-01-03] MEDS ORDERED: ASPirin 81 mg TAB PO SCH (10:00)
== END 2025-01-03 01:05 | disposition short-term general hospital (02) | DRG 720 ==
LOC: EDBD 11:38 → ER 11:38 → OVERFLOW 17:24 → ICU WEST 12-22 11:15
PROVIDERS: ADMIT Student in an Organized Health Care Education/Training Program; ATTEND Student in an Organized Health Care Education/Training Program
PROC: 5A1955Z Respiratory Ventilation, Greater than 96 Consecutive Hours (ICD-10-PCS; principal; 2024-12-21)
PROC: 0BH17EZ Insertion of Endotracheal Airway into Trachea, Via Natural or Artificial Opening (ICD-10-PCS; 2024-12-21)
PROC: 5A09357 Assistance with Respiratory Ventilation, Less than 24 Consecutive Hours, Continuous Positive Airway Pressure (ICD-10-PCS; 2024-12-21)
PROC: 02H633Z Insertion of Infusion Device into Right Atrium, Percutaneous Approach (ICD-10-PCS; 2024-12-21)
PROC: 30233N1 Transfusion of Nonautologous Red Blood Cells into Peripheral Vein, Percutaneous Approach (ICD-10-PCS; 2024-12-21)
PROC: 04HY32Z Insertion of Monitoring Device into Lower Artery, Percutaneous Approach (ICD-10-PCS; 2024-12-22)
PROC: 02H633Z Insertion of Infusion Device into Right Atrium, Percutaneous Approach (ICD-10-PCS; 2024-12-23)
PROC: B548ZZA Ultrasonography of Superior Vena Cava, Guidance (ICD-10-PCS; 2024-12-23)
PROC: 5A1D70Z Performance of Urinary Filtration, Intermittent, Less than 6 Hours Per Day (ICD-10-PCS; 2024-12-24)
PROC: 05HB33Z Insertion of Infusion Device into Right Basilic Vein, Percutaneous Approach (ICD-10-PCS; 2024-12-27)
DX: A41.9 Sepsis, unspecified organism (principal); I61.9 Nontraumatic intracerebral hemorrhage, unspecified; N17.0 Acute kidney failure with tubular necrosis; J96.01 Acute respiratory failure with hypoxia; I76 Septic arterial embolism; D61.818 Other pancytopenia; J15.69 Pneumonia due to other Gram-negative bacteria; J15.9 Unspecified bacterial pneumonia; R65.21 Severe sepsis with septic shock; I27.20 Pulmonary hypertension, unspecified; E11.649 Type 2 diabetes mellitus with hypoglycemia without coma; D62 Acute posthemorrhagic anemia; Z20.822 Contact with and (suspected) exposure to COVID-19; G92.8 Other toxic encephalopathy; I50.21 Acute systolic (congestive) heart failure; I21.A1 Myocardial infarction type 2; E86.0 Dehydration; E83.52 Hypercalcemia; E87.0 Hyperosmolality and hypernatremia; E87.4 Mixed disorder of acid-base balance; E11.22 Type 2 diabetes mellitus with diabetic chronic kidney disease; K76.89 Other specified diseases of liver; I13.0 Hypertensive heart and chronic kidney disease with heart failure and stage 1 through stage 4 chronic kidney disease, or unspecified chronic kidney disease; G93.1 Anoxic brain damage, not elsewhere classified; E87.6 Hypokalemia; E87.3 Alkalosis; E44.0 Moderate protein-calorie malnutrition; E11.40 Type 2 diabetes mellitus with diabetic neuropathy, unspecified; N18.30 Chronic kidney disease, stage 3 unspecified; Z79.4 Long term (current) use of insulin; Z79.82 Long term (current) use of aspirin; Z86.73 Personal history of transient ischemic attack (TIA), and cerebral infarction without residual deficits
CPT/HCPCS: 31500; 36415; 36430; 36556; 36600; 36620; 70450; 71045; 71250; 76700; 76775; 76937; 80048; 80053; 80061; 80074; 80202; 80320; 81001; 82232; 82565; 82570; 82784; 82805; 82962; 83010; 83036; 83521; 83605; 83615; 83735; 83880; 84100; 84132; 84155; 84165; 84300; 84443; 84484; 85007; 85025; 85027; 85045; 85379; 85610; 85730; 86038; 86160; 86334; 86335; 86431; 86703; 86706; 86803; 86850; 86900; 86901; 86920; 87040; 87070; 87077; 87081; 87086; 87186; 87205; 87340; 87426; 87804; 90935; 93005; 93306; 93886; 94002; 94003; 94640; 94660; 96361; 96365; 96368; 96375; 96376; 99291; G0378; J0131; J0330; J1642; J1815; J2185; J2248; J2470; J2543; J2704; J3480; J7060; P9047